=== PATIENT | female | born 1990 | race Caucasian/White ===

== ENCOUNTER 2022-01-26 05:33 | Inpatient (IN) | payer OTHER, SELFPAY ==
[2022-01-26] VITALS (74 sets, daily range): BP systolic 86–121; BP diastolic 49–85; PULSE 74–112; RESP 18; TEMP 35.8–37.4; O2SAT 93–100; BMI 33.5
--- OUTSIDE RECORDS SUMMARY | 2022-01-26 05:38 | XMS_ITS | Encounter Summary ---
:1990 Author Care Team Providers Name Role Phone Nils Kohler MD Primary Care Provider [phone] Reason for Visit OB visit Assessment and Plan 1. Routine care Discussion Note: None recorded.Patient educational handouts: No information available. Plan of Care Reminders Provider Appointments None recorded. ? ? Lab None recorded. ? ? Referral None recorded. ? ? Procedures None recorded. ? ? Surgeries None recorded. ? ? Imaging None recorded. ? ? Medications Name Start Date ? ? ? Medications Administered None recorded. Vitals Height 5 ft Results Lab Results None recorded. Allergies Code Code System Name Reaction Severity Onset NKDA ? ? ? Problems Name Status Onset Date Source ? Atypical Glandular Cells on Cervical Papanicolaou Smear Active 08/28/2021 ? Cervicovaginal Cytology: Low Grade Squamous Intraepithelial Acti ve 08/28/2021 ? Lesion Active 08/31/2021 ? Anxiety in Active ? ? Procedures Date Name Performed by ? 01/03/2017 Colposcopy Information not avai lable 06/27/2006 Termination of Information not available 06/27/1990 Hernia Repair Information not avniko laboscar Vaccine List None recorded. Social History Tobacco Smoking Status Never Smoker Do you have difficulty walking or climbing stairs? N What ty
--- OUTSIDE RECORDS SUMMARY | 2022-01-26 05:38 | XMS_ITS | Encounter Summary ---
:1990 Author Care Team Providers Name Role Phone Nils Kohler MD Primary Care Provider [phone] Reason for Visit OB visit Assessment and [...] ? Medications Administered None recorded. Vitals Height Weight BMI Blood Pressure 5 ft 171 lbs 33.4 kg/m2 106/71 mm[Hg] Results Lab Results None recorded. Allergies Code [...] not available 06/27/1990 Hernia Repair Information not avai lable Vaccine List None recorded. Social History Tobacco Smoking Status Never Smoker Do you have difficulty walking or climbing sta
--- OUTSIDE RECORDS SUMMARY | 2022-01-26 05:38 | XMS_ITS | Encounter Summary ---
:1990 Author Care Team Providers Name Role Phone Nils Kohler MD Primary Care Provider [phone] Reason for Visit OB visit Assessment and [...] Height Weight BMI Blood Pressure 5 ft 173 lbs 33.8 kg/m2 118/73 mm[Hg] Results Lab Results None recorded. Allergies [...]
--- OUTSIDE RECORDS SUMMARY | 2022-01-26 05:38 | XMS_ITS | Encounter Summary ---
:1990 Author Care Team Providers Name Role Phone Nils Kohler MD Primary Care Provider [phone] Reason for Visit OB visit OB [id number] EDC 01/31/2022 LMP 04/26/2021 Assessment and Plan Assessment Note Patient is __34_weeks . Discuss ed plan. 1. Routine care Discussion Note: None recorded.Patient [...] Height Weight BMI Blood Pressure 5 ft 168 lbs 32.8 kg/m2 92/51 mm[Hg] Results Lab Results None recorded. Allergies [...] Performed by ? 01/03/2017 Colposcopy Information not avniko cruz 06/27/2006 Termination of Information not available 06/27/1990 Mony
--- OUTSIDE RECORDS SUMMARY | 2022-01-26 05:38 | XMS_ITS | Encounter Summary ---
:1990 Author Care Team Providers Name Role Phone Nils Kohler MD Primary Care Provider [phone] Reason for Visit OB visit Assessment and Plan Assessment Note Patient is ___weeks . Discussed plan. 1. Routine care Discussion Note: None [...] Height Weight BMI Blood Pressure 5 ft 166 lbs 32.4 kg/m2 112/71 mm[Hg] Results Lab Results None recorded. Allergies [...] Information not avai lable Vaccine List None recor
--- OUTSIDE RECORDS SUMMARY | 2022-01-26 05:38 | XMS_ITS ---
:1990 Author Care Team Providers Name Role Phone RITU MCGUIRE MD Primary Care Provider [phone] Allergies Code Code System Name Reaction Severity Status Onset NKDA ? Medications Name Status Start Date Stop Date ? ? citalopram 20 mg tablet Completed 07/19/2018 07/21/19 22 TAKE 1 TABLET BY ORAL ROUTE EVERY DAY Loestrin / (21) 1 mg-20 mcg tablet Completed 06/23/2018 07/20/2021 take 1 tablet by oral route every day Ortho-Novum (28) 0.5 mg/0.75 mg/1 mg-35 mcg tablet Complet ed 04/18/2017 11/24/2017 TAKE 1 TABLET BY ORAL ROUTE EVERY DAY F OR 21 DAYS, FOLLOWED BY 7 DAYS OFF FOR A 28-DAY PACKET, TAKE ONE TABLET DAILY (NO DAYS OFF). Active ? Not available Vitamin D2 1,250 mcg (50,000 unit) capsule Completed 09/1511/24/2017 take 1 capsule by oral route every week [employer]-PNV-DHA 28 mg iron-1 mg-200 mg capsule Completed 201702/05/2019 take 1 capsule by oral route every day Problems Name Status Onset Date Source ? Infection Screening Unknown 08/29/2015 History Screening for Malignant Neoplasm of Cervix Unknown 08/28 History Syphilis Test Finding Unknown 08/29/2015 History , Childbirth and Puerperium Finding Unknown 01/2016 History Gestation Period, 25 Weeks Unknown 11/28/[address] Concept Unknown 11/28/2015 History Gestation Period, 34 Weeks Unknown 02/03/2016 Histo ry Gestation Period, 36 Weeks Unknown 02/17/2016 Histo ry Gestation Period, 39 Weeks Unknown 03/11/2016 Histo ry Laceration of Female Perineum Unknown 03/11/[address] Concept Unknown 10/21/[address] Concept Unknown 10/21/2016 History Educatio
--- OUTSIDE RECORDS SUMMARY | 2022-01-26 05:38 | XMS_ITS | Encounter Summary ---
:1990 Author Care Team Providers Name Role Phone Nils Kohler MD Primary Care Provider [phone] Reason for Visit OB visit Assessment and [...] Height Weight BMI Blood Pressure 5 ft 156 lbs 30.5 kg/m2 119/77 mm[Hg] Results Lab Results None recorded. Allergies [...]
--- OUTSIDE RECORDS SUMMARY | 2022-01-26 05:38 | XMS_ITS | Encounter Summary ---
:1990 Author Care Team Providers Name Role Phone Nils Kohler MD Primary Care Provider [phone] Reason for Visit OB visit Assessment and [...] Pressure 5 ft 173 lbs 33.8 kg/m2 101/66 mm[Hg] Results Lab Results None recorded. Allergies [...]
[2022-01-26] MEDS: LACTATED RINGERS 1,000 ML 125 ML IV CONT ×2 (07:04→09:33)
[2022-01-26] MEDS: OXYTOCIN 30 UNITS/NS 500 ML 30 UNITS/500 ML BAG IV CONT (07:04)
[2022-01-26 07:17] LABS: Basophils Percent Auto 0.2 % (0.2-1.2); Eosinophils Percent Auto 0.2 % (0-4.4); Hematocrit 32.5 % (37.0-47.0); Hemoglobin 10.6 g/dL (12.0-15.0); Immature Granulocyte Absolute 0.05 K/mm3 (0.00-0.031); Immature Granulocyte Percent A 0.9 % (0-0.5); Lymphocytes Absolute Auto 0.35 K/mm3 (0.9-3.2); Mean Corpuscular HGB Conc 32.6 g/dl (32-36); Mean Corpuscular Hemoglobin 29.6 pg (26-34); Mean Corpuscular Volume 90.8 fl (80-100); Monocytes Absolute Auto 0.6 K/mm3 (0.1-0.6); Monocytes Percent Auto 10.4 % (2.6-8.5); Neutrophils Absolute Auto 4.8 K/mm3 (1.3-6.7); Neutrophils Percent Auto 82.3 % (45.5-73.1); Platelet Count Result 137 k/mm3 (150-375); Red Blood Count 3.58 M/mm3 (4.2-5.4); Red Cell Distribution Width 13.5 % (11.5-14.5); White Blood Count 5.9 K/mm3 (4.5-10.0)
--- NOTE | 2022-01-26 07:51 | PM.IMHP ---
H&P: HPI History of Present Illness Date/Time: 01/26/22 07:51 Chief Complaint: induction of labor Narrative: Catrachita is a 31yo at 39.2 IOL, elective. GBS neg. complicated by EIF present, normal NIPT, and VÍCTOR pap at beginning of . Review of Systems Review of Systems: All systems reviewed & are unremarkable except as noted in HPI and below [facility] Family History Family History (Updated 12/31/21 @ 14:46 by Vidya Prieto RN) Other Unknown family medical history Social History Social History Substance use: never Spiritual care concerns: No Meds Home Medications and Allergies Home Medications Medication Instructions Recorded Confirmed Type prenat.vits,vincent,qvp-gsot-hxcbv 1 tablet PO DAILY 12/31/21 12/31/21 History Allergies Allergy/AdvReac Type Severity Reaction Status Date / Time No Known Allergies Allergy Verified 12/31/21 14:44 Vital Signs Vital Signs - 24 hr 01/26/22 05:59 01/26/22 06:01 01/26/22 06:16 Temperature Pulse Rate 96 99 111 H Blood Pressure 106/65 104/68 106/71 Oxygen Delivery 01/26/22 07:07 01/26/22 07:00 01/26/22 07:31 Temperature 97.6 F Pulse Rate 105 H 96 Blood Pressure 110/62 107/60 Oxygen Delivery 01/26/22 06:58 Temperature Pulse Rate Blood Pressure Oxygen Delivery Room Air Exam Const: General: no acute distress Resp: Effort & Inspection: normal respiratory effort Auscultation: clear to auscultation bilaterally Cardio: Rate: regular rate Rhythm: regular rhythm GI: GI Palp: Yes Soft to palpation Extrem: General: normal to inspection H&P: Results Labs Labs: Short CBC 01/26/22 Range/Units 06:12 WBC 5.9 (4.5-10.0) K/mm3 Hgb 10.6 L (12.0-15.0) g/dL Hct 32.5 L (37.0-47.0) % Plt Count 137 L (150-375) k/mm3 Assessment and Plan Additional Plan Here for induction of labor-pitocin GBSneg FHT category 1 AROM clear /50/-3
[2022-01-26] MEDS: SODIUM CHLORIDE 0.9% IV 300 ML 600 ML I-UTERINE ×2 (11:00→12:59)
--- NOTE | 2022-01-26 12:48 | PM.OBPRVD ---
OB - Delivery Note Procedure Delivery date: 01/26/22 Procedure: Induction method: AROM and Per Pitocin Protocol Delivery monitor: External FHT and Internal Uterine Route of delivery: Laceration Description: Perineal - 2nd Degree Delivery repair: vicryl Specimen: No Quantitative Blood Loss (ml): 175 Anesthesia type: Epidural Disposition: Floor Narrative: With adequate expulsive efforts by the mother, the baby's head was delivered OA. The baby's anterior shoulder was delivered under the pubic symphysis without difficulty. The posterior shoulder and the rest of the baby delivered without difficulty. The infant was placed on the mothers chest and suctioned and stimulated. The cord was clamped and cut after 30 seconds. Mother and baby both stable. Baby Date of : 01/26/22 Time of : 12:16 Weeks of gestation at delivery: 39 gender: Male Weight (pounds): 7 Weight (ounces): 1 presentation: vertex Placenta delivery description: Spontaneous Cord Vessel Description: 3 Vessels and Delayed Cord Clamping score one minute: 9 score five minutes: 9
[2022-01-26] MEDS: OXYTOCIN 30 UNITS/NS 500 ML 30 UNITS/500 ML BAG 125 UNITS IV CONT (12:59)
--- NOTE | 2022-01-26 15:50 | PC.NURSE ---
PT arrived on unit via wheelchair accompanied by fob and infant and taken to room 279. PT introductions made and plan of care discussed per post , pain management, breast feeding, daily care activities. PT received such instructions per one to one discussion, mom baby care guide and demonstrations this shift. PT and fob both recipients of such instructions and no barriers to learning identified at this time. PT verbalized understanding of such care.
[2022-01-26] MEDS: LANOLIN (LANSINOH) 7.5 GM CREAM 1 APPLIC TOPICAL (17:33)
[2022-01-26] MEDS: IBUPROFEN 600 MG TABLET PO (17:33)
[2022-01-26] MEDS: DOCUSATE SODIUM 100 MG CAPSULE PO (17:33)
[2022-01-27 00:50] VITALS: BP 90/53; PULSE 82; RESP 16; TEMP 35.9
[2022-01-27] MEDS: IBUPROFEN 600 MG TABLET PO ×2 (04:55→11:32)
[2022-01-27 05:00] VITALS: BP 99/69; PULSE 64; RESP 18; TEMP 36.8
[2022-01-27 06:00] LABS: Hematocrit 34.3 % (37.0-47.0); Hemoglobin 11.1 g/dL (12.0-15.0)
--- NOTE | 2022-01-27 07:20 | P.PNOB_ITS ---
OB - PN: Subj Subjective Date/time seen: 01/27/22 07:20 Patient comments: no complaints and pain well controlled baby status: doing well [place] feeding status: exclusively breast feeding Narrative: would like DC home today. OB - PN: Obj Data Labs CBC & Chem 7: 01/27/22 04:59 Labs: Laboratory Results - last 24 hr 01/26/22 01/26/22 01/27/22 06:12 06:12 04:59 WBC 5.9 RBC 3.58 L Hgb 10.6 L 11.1 L Hct 32.5 L 34.3 L MCV 90.8 MCH 29.6 MCHC 32.6 RDW 13.5 Plt Count 137 L MPV 11.0 H Immature Gran % (Auto) 0.9 H Neut % (Auto) 82.3 H Lymph % (Auto) 6.0 L [place] % (Auto) 10.4 H Eos % (Auto) 0.2 Baso % (Auto) 0.2 Lymph # (Auto) 0.35 L [place] # (Auto) 0.6 Eos # (Auto) 0.0 Baso # (Auto) 0.0 Abs Immat Gran (auto) 0.05 H Absolute Neuts (auto) 4.8 Absolute Nucleated RBC 0.0 Nucleated RBC % 0.0 Blood Type A Positive Antibody Screen Negative OB - PN A/P Plan day: 1 Plan: routine care and discharge home Time Spent With Patient Time: Total time spent is greater than 50% in coordination of care (as documented) at patient's floor/unit and/or counseling patient: Time with patient: less than 15 minutes Exam Narrative: NAD abdomen soft, nontender, fundus firm below the umbilicus Extremities nontender, 1+ edema
--- NOTE | 2022-01-27 07:23 | PM.OBDSVD ---
DS: Admitting Diagnosis Discharge Date 01/27/22 Admitting Diagnosis term IUP DS: Discharge Diagnosis Discharge Diagnosis (1) , delivered: Code(s): O80 - Encounter for full-term uncomplicated delivery Status: Acute OB - DS: Summary Hospital Course Hospital Course: Catrachita was admitted for elective induction of labor. She had an uncomplicated delivery and course and was discharged home on PPD 1. OB Procedures : Ultrasound OB Procedures Intrapartum: Spontaneous Vag Delivery OB Procedures: : None Peripartum Data Infant Delivery Method: Natural Vaginal complications: none Status at Discharge Functional status at discharge: independent ambulation Time Spent with Patient Time attestation: Total time spent providing and/or coordinating discharge services: Exam Narrative: NAD abdomen soft, appropriately tender Ext non tender, 1+ edema DS: Data Data Completed and Pending Labs on day of discharge: Labs from last 24 hours 01/27/22 01/26/22 01/26/22 04:59 06:12 06:12 WBC 5.9 RBC 3.58 L Hgb 11.1 L 10.6 L Hct 34.3 L 32.5 L MCV 90.8 MCH 29.6 MCHC 32.6 RDW 13.5 Plt Count 137 L MPV 11.0 H Immature Gran % (Auto) 0.9 H Neut % (Auto) 82.3 H Lymph % (Auto) 6.0 L [place] % (Auto) 10.4 H Eos % (Auto) 0.2 Baso % (Auto) 0.2 Lymph # (Auto) 0.35 L [place] # (Auto) 0.6 Eos # (Auto) 0.0 Baso # (Auto) 0.0 Abs Immat Gran (auto) 0.05 H Absolute Neuts (auto) 4.8 Absolute Nucleated RBC 0.0 Nucleated RBC % 0.0 Blood Type A Positive Antibody Screen Negative Discharge Plan Discharge Attending physician on discharge: Juliana Santiago Discharging Clinician: Juliana Santiago Anticipated Discharge Date/Time: 01/27/22 12:00 Patient Disposition: Home, Self-Care Activity: pelvic rest Diet: regular Patient Instructions: Antibiotic Form Stand Alone Forms: General Discharge Information Follow-up/Referrals: Juliana Santiago MD [Physician] - Discharge Medications: Continued #2 Tablet 1 tablet PO DAILY Date of admission: 01/26/22 05:33 Primary Care Provider: Edita,Nils Admitting Provider: Juliana Santiago. Attending physician on admission: Juliana Santiago. Condition: Stable
[2022-01-27 08:00] VITALS: BP 102/66; PULSE 72; RESP 18; TEMP 36.7; O2SAT 100
[2022-01-27] MEDS: MULTIVIT/MIN/PREN/FOL AC/IRON TABLET 1 TAB PO (11:31)
[2022-01-27] MEDS: DOCUSATE SODIUM 100 MG CAPSULE PO (11:31)
--- NOTE | 2022-01-27 12:11 | PC.NURSE ---
Patient was given the opportunity to view the discharge video Mother & Baby Care, The First Two Weeks and to ask questions. Patient declined viewing the video and has been given the mother/baby guide for home reference.
--- NOTE | 2022-01-27 12:27 | PC.NURSE ---
[id number] Introductions were made, then consulted with patient to assess needs related to . Mother led the conversation with her?plans to feed?her infant and the?experience so far. Resources provided for inpatient and outpatient services using a resource guide and mom/baby guide. Mother voiced understanding of information and will call if there is a request for assistance. Mother inquired with questions and requested assistance. Mother works well with her infant with encouragement. Reviewed working with , breast, nipples and how to protect the nipples with an optimal deep latch, good positioning, and good hand washing. Encouraged understanding the benefits of skin to skin, responding to feeding cues, frequencies of feeding 8-12 times in 24 hours (approximately 2-3 hours), duration of feedings, milk production, intake/output feeding sheet and signs of adequate intake encouraging swallowing at the breast. Reviewed positioning and alignment, supporting breast, off-centered (asymmetrical latch) and leading with the chin with big open wide gape. latched optimally to the left breast in cross cradle position. Education given to mother of how to visualize suck/swallow ratios and drinking at the breast. was able to maintain latch without discomfort to mother. Nipple care reviewed with optimal latch and good positioning and to have clean hands when touching the nipple/breast as needed. Mother voiced understanding of the education shared, calling for assistance if the does not latch or if there is discomfort with . Reported to the primary RN.
[2022-01-27 12:50] VITALS: BP 99/66; PULSE 78; RESP 18; TEMP 36.6; O2SAT 98
--- NOTE | 2022-01-27 12:53 | PC.NURSE ---
Error on prior note: Patient viewed the discharge video Mother & Baby Care, The First Two Weeks . Patient was given the opportunity and encouraged to ask questions. Patient verbalized understanding of information shared and has been given the mother/baby guide for home reference.
--- NOTE | 2022-01-27 13:20 | WPDANLDPN2 ---
Anes-Prog Note L&D Date/Time: 01/27/22 13:20 Comfortable throughout: labor and delivery Neuraxial method: epidural Epidural/Spinal procedure site: clean & non-tender Neuro status: Neuro function grossly intact. Cardiovascular status: normal Respiratory status: normal Airway patency: baseline Mental status: baseline Post-Op hydration status: normal Vital Signs: Last Vital Signs Temp 97.8 F 01/27/22 12:50 Pulse 78 01/27/22 12:50 Resp 18 01/27/22 12:50 BP 99/66 L 01/27/22 12:50 Pulse Ox 98 01/27/22 12:50 O2 Del Method Room Air 01/27/22 08:00 Pain score (VAS): 07/06 I/O: Intake & Output 01/26/22 01/27/22 01/27/22 23:59 07:59 15:59 Intake Total 740 240 Balance 740 240 Post-procedural complaints: none Patient feedback: Patient satisfied with anesthetic care.
[2022-01-27 16:23] LABS: Rapid Plasma Reagin Non-Reactive (NonReactive)
[2022-01-29 11:08] VITALS: BP 124/70; PULSE 74; RESP 20; TEMP 36.9; O2SAT 99
== END 2022-01-27 14:00 | disposition home or self-care (01) | DRG 560 ==
LOC: ANHLDR 05:36 → ANHOB2 15:53
PROVIDERS: Admitting Provider Obstetrics & Gynecology; Visit Provider Obstetrics & Gynecology
DX: O70.1 Second degree perineal laceration during delivery (principal); Z37.0 Single live birth; Z3A.39 39 weeks gestation of pregnancy; O36.8330 Maternal care for abnormalities of the fetal heart rate or rhythm, third trimester, not applicable or unspecified
CPT/HCPCS: 36415; 85014; 85018; 85025; 86592; 86850; 86900; 86901; A9270; J2590; J2795; J7030; J7120

== ENCOUNTER 2025-03-20 00:01 | Inpatient (IN) | payer OTHER, SELFPAY ==
[2025-03-20] VITALS (58 sets, daily range): BP systolic 94–208; BP diastolic 46–138; PULSE 53–188; RESP 18–20; TEMP 36.5–36.9; O2SAT 94–100
--- NOTE | 2025-03-20 00:57 | LDADM ---
This patient, Catrachita Cerna, was admitted to Labor/Delivery/Recovery 106 on 03/20/25 at 00:05. Plans for labor, pain management and were discussed with patient. Patient/family oriented to hospital policies and general routines including ID bracelet, bed and alarms, visiting hours, pain management, procedures, bathroom and other care routines, personal items, smoking policy, room service/diet and guest tray routines, security routines, and visiting hours. Patient/Family are encouraged to report perceived risks to care and to ask questions if they do not understand what they are told or what they should do. See [facility]BI[facility] for further documentation.
[2025-03-20 01:04] LABS: Hematocrit 31.2 % (37.0-47.0); Hemoglobin 10.1 g/dL (12.0-15.0); Immature Granulocyte Percent A 0.7 % (0-0.5); Lymphocytes Absolute Auto 2.06 K/mm3 (0.9-3.2); Mean Corpuscular HGB Conc 32.4 g/dl (32-36); Mean Corpuscular Hemoglobin 27.5 pg (26-34); Mean Corpuscular Volume 85.0 fl (80-100); Nucleated Red Blood Cells Absolute Auto 0.000 K/mm3 (0.0-0.012); Nucleated Red Blood Cells Perc 0.0 % (0.0-0.2); Platelet Count Result 211 k/mm3 (150-375); Red Blood Count 3.67 M/mm3 (4.2-5.4); White Blood Count 10.3 K/mm3 (4.5-10.0)
[2025-03-20 01:44] LABS: Syphilis IgG/IgM Antibody Non-Reactive (Nonreactive)
[2025-03-20] MEDS: LACTATED RINGERS 1,000 ML 125 ML IV CONT ×2 (01:46→07:59)
[2025-03-20] MEDS: OXYTOCIN 30 UNITS/NS 500 ML 30 UNITS/500 ML BAG IV CONT (01:46)
--- NOTE | 2025-03-20 06:55 | P.PNAN_ITS ---
Anes - Eval Pre Procedure Procedure: labor epidural Date/Time: 03/20/25 06:55 Surgeon: imani Preop Diagnosis: pain during labor Pre Op Diagnosis: Pre-in / IOL Patient Data Age: 35 Gender: F Height: Weight: Last Vital Signs Temp 36.8 C 03/20/25 04:00 Pulse 69 03/20/25 06:45 BP 114/59 L 03/20/25 06:45 Allergies Allergy/AdvReac Type Severity Reaction Status Date / Time No Known Allergies Allergy Verified 02/18/25 13:39 Home Medications ?Medication ?Instructions ?Recorded ?Confirmed ?Type prenat.vits,vincent,[id number]-[id number] 1 tablet PO DAILY 12/3102/18/25 History Laboratory Tests 03/20/25 00:55 WBC 10.3 H K/mm3 (4.5-10.0) RBC 3.67 L M/mm3 (4.2-5.4) Hgb 10.1 L g/dL (12.0-15.0) Hct 31.2 L % (37.0-47.0) MCV 85.0 fl (80-100) MCH 27.5 pg (26-34) MCHC 32.4 g/dl (32-36) RDW 14.1 % (11.5-14.5) Plt Count 211 D k/mm3 (150-375) MPV 10.8 H fl (7.4-10.4) Immature Gran % (Auto) 0.7 H % (0-0.5) Neut % (Auto) 72.5 % (45.5-73.1) Lymph % (Auto) 20.1 % (18.3-44.2) [place] % (Auto) 5.7 % (2.6-8.5) Eos % (Auto) 0.7 % (0-4.4) Baso % (Auto) 0.3 % (0.2-1.2) Lymph # (Auto) 2.06 K/mm3 (0.9-3.2) [place] # (Auto) 0.6 K/mm3 (0.1-0.6) Eos # (Auto) 0.1 K/mm3 (0-0.3) Baso # (Auto) 0.0 K/mm3 (0.0-0.1) Abs Immat Gran (auto) 0.07 H K/mm3 (0.00-0.031) Absolute Neuts (auto) 7.5 H K/mm3 (1.3-6.7) Absolute Nucleated RBC 0.000 K/mm3 (0.0-0.012) Nucleated RBC % 0.0 % (0.0-0.2) Syphilis IgG/IgM Ab Non-reactive (Nonreactive) Blood Type A Positive Antibody Screen Negative Patient hx anesthesia problems: none Family hx anesthesia problems: none Results Review: All pre-operative results and documents have been reviewed as part of the pre- operative evaluation. [facility] Past Medical History Medical History (Updated 03/20/25 @ 06:56 by Parul Doan CRNA) FH: migraines Advanced maternal age (AMA) in Anxiety OCD (obsessive compulsive disorder) Family History Family History Other Unknown family medical history Social History Social History Smoking status: Former smoker Tobacco type: cigarettes and e-cigarettes/vaping Second hand tobacco smoke exposure: No Substance use: never Lack of Transportation: No Lack of Food: Never True Current Housing: I Have Housing Concerned About Future Housing: No Difficulty Paying Gas/Electric Bills: No Difficulty Paying for Meds: No Currently Unemployed: No Education: High School Diploma/GED Difficulty w/ Childcare or Family Care: No Spiritual care concerns: No Exam Day of Procedure 03/20/25 06:55
[2025-03-20] MEDS: OXYTOCIN 30 UNITS/NS 500 ML 30 UNITS/500 ML BAG 125 UNITS IV CONT (10:09)
--- NOTE | 2025-03-20 10:57 | WPDOBADMIT ---
Obstetrics - Admit Note Admission Note: record reviewed. No pertinent additions to the history and/or any subsequent changes in the physical findings that are not consistent with the expected course of the were found. Admitted for EIL, pitocin per protocol. AROM at 0730 of clear fluid Additions to the history and/or subsequent changes in the physical findings follow. None.
--- NOTE | 2025-03-20 10:58 | P.PCNOB_ITS ---
OB - Vaginal Delivery Note Procedure Delivery date: 03/20/25 Events: Elective Induction of Labor Induction method: AROM and Per Pitocin Protocol Delivery monitor: External FHT and External Uterine Route of delivery: Episiotomy description: None Laceration Description: Perineal - 1st Degree (hemostatic) Specimen: No Quantitative Blood Loss (ml): 100 Anesthesia type: Epidural Disposition: Floor Complications: No immediate complications Narrative: See H&P and notes for details on patient's admission and labor. She progressed to complete cervical dilation and at the appropriate time began pushing. With adequate expulsive efforts by the mother, the baby's head was delivered without difficulty. Nuchal cord was present x1 and was easily reduced. The baby's left shoulder was anterior and did not deliver easily. Shoulder dystocia was identified. The patient was placed in Ray[place] position and the dystocia was relieved. The posterior shoulder and the rest of the baby delivered without difficulty. The umbilical cord was doubly clamped and cut after 20 seconds of delayed cord clamping. Care of the was then assumed by the nursing staff. [place] Baby Date of : 03/20/25 Gestational Age by Date: 40 gender: Male presentation: vertex position: Left Occiput Anterior Placenta delivery description: Expressed Cord Vessel Description: 3 Vessels, Nuchal Cord and Reduced
--- NOTE | 2025-03-20 12:06 | OBPPTRN ---
Patient transferred to post room #280 via wheelchair. Oriented to unit, room, information board, rooming in, admission packet and security measures. Patient verbalizes understanding.
--- NOTE | 2025-03-20 12:35 | PC.NURSE ---
On 03/20/25, the student, Juliana Bojorquez, provided care and completed [facility] documentation on this patient. I have reviewed the student's documentation and agree with the findings.
[2025-03-20] MEDS: IBUPROFEN 600 MG TABLET PO ×2 (15:45→23:45)
[2025-03-21 00:39] VITALS: BP 106/62; PULSE 80; RESP 20; TEMP 36.4; O2SAT 96
[2025-03-21 04:50] LABS: Hematocrit 30.7 % (37.0-47.0); Hemoglobin 9.7 g/dL (12.0-15.0)
[2025-03-21] MEDS: DOCUSATE SODIUM 100 MG CAPSULE PO ×2 (08:14→16:19)
[2025-03-21] MEDS: IBUPROFEN 600 MG TABLET PO ×3 (08:14→20:07)
[2025-03-21] MEDS: MULTIVIT/MIN/PREN/FOL AC/IRON TABLET 1 TAB PO (08:14)
[2025-03-21 08:20] VITALS: BP 104/66; PULSE 68; RESP 18; TEMP 36.9; O2SAT 97
--- NOTE | 2025-03-21 12:57 | P.PNOB_ITS ---
OB - PN: Subj Subjective Date/time seen: 03/21/25 12:57 Patient comments: no complaints, pain well controlled, incisional pain, tolerating diet and flatus present OB - PN: Obj Data Labs 03/21/25 04:32 Labs: Laboratory Results - last 24 hr 03/21/25 04:32 Hgb 9.7 L Hct 30.7 L OB - PN A/P Plan day: 1 Plan: routine care Comments: No problems, routine care Time Spent With Patient Time: Total time spent is greater than 50% in coordination of care (as documented) at patient's floor/unit and/or counseling patient: Exam 2 Const: General: comfortable, no acute distress and alert Resp: Effort & Inspection: normal respiratory effort Auscultation: no crackles, no rales and no rhonchi Cardio: Rate: regular rate Heart sounds: no click, no murmurs and no rubs GI: Inspection: non-distended GI Palp: No Tenderness to palpation present (GI) Auscultation: normal bowel sounds Other: Incision - CDI Extrem: General: normal to inspection, no pedal edema and no calf tenderness
--- NOTE | 2025-03-21 17:00 | WPDANLDPN2 ---
Anes-Prog Note L&D Date/Time: 03/21/25 17:00 Neuro status: Neuro function grossly intact. Cardiovascular status: normal Respiratory status: normal Airway patency: baseline Mental status: baseline Post-Op hydration status: normal Vital Signs: Last Vital Signs Temp 36.9 C 03/21/25 08:20 Pulse 68 03/21/25 08:20 Resp 18 03/21/25 08:20 BP 104/66 03/21/25 08:20 Pulse Ox 97 03/21/25 08:20 O2 Del Method Room Air 03/21/25 08:15 Pain score (VAS): 0 Post-procedural complaints: none Patient feedback: Patient satisfied with anesthetic care.
[2025-03-21 19:55] VITALS: BP 108/50; PULSE 84; RESP 16; TEMP 36.8; O2SAT 98
[2025-03-22] MEDS: IBUPROFEN 600 MG TABLET PO (03:38)
--- NOTE | 2025-03-22 07:58 | P.PNOB_ITS ---
OB - PN: Subj Subjective Date/time seen: 03/22/25 07:58 Interval history: pp day 1 doing well desires d/c home OB - PN: Obj Data Labs 03/21/25 04:32 OB - PN A/P Plan day: 2 Plan: routine care and discharge home Time Spent With Patient Time: Total time spent is greater than 50% in coordination of care (as documented) at patient's floor/unit and/or counseling patient: Review of Systems 2 Review of Systems: All systems reviewed & are unremarkable except as noted in HPI and below Exam 2 Const: General: cooperative, healthy appearing and comfortable Chest: Chest palpation & inspection: normal inspection of the chest Resp: Effort & Inspection: normal respiratory effort Cardio: Rate: regular rate GI: Inspection: normal to inspection Back/Spine/Pelvis: Back: no CVA tenderness
--- NOTE | 2025-03-22 08:00 | PM.OBDSVD ---
DS: Admitting Diagnosis Discharge Date 03/22/25 Admitting Diagnosis IOL DS: Discharge Diagnosis Discharge Diagnosis (1) Vaginal delivery: Code(s): O80 - Encounter for full-term uncomplicated delivery Status: Acute OB - DS: Summary OB Procedures : None OB Procedures Intrapartum: Spontaneous Vag Delivery OB Procedures: : None Peripartum Data Laceration Description: Perineal - 1st Degree (hemostatic) Episiotomy description: None Time Spent with Patient Time attestation: Total time spent providing and/or coordinating discharge services: Discharge Plan Discharge Attending physician on discharge: Timi Gonzalez Discharging Clinician: Chichi Camilo Patient Disposition: Home Activity: pelvic rest Diet: regular Patient Instructions: Antibiotic Form, How to Stop Smoking (ED) Patient Language: Prydeinig Stand Alone Forms: General Discharge Information Follow-up/Referrals: Abner Steele MD [Physician, STITCH BONDING MACHINE TENDER HELPER] - 4 Weeks Referral Note: abelardo-4 weeks Chichi Camilo, KYLEM [Certified Nurse Insurance Agency Sales Manager, STITCH BONDING MACHINE TENDER HELPER] Discharge Medications: Continued prenat.vits,vincent,piu-yday-wuufu Tablet 1 tablet PO DAILY Date of admission: 03/20/25 00:01 Primary Care Provider: PHYSICIAN,FISHERY BIOLOGIST Admitting Provider: Timi Gonzalez Attending physician on admission: Timi Gonzalez Condition: Stable
[2025-03-22] MEDS: DOCUSATE SODIUM 100 MG CAPSULE PO (08:13)
[2025-03-22] MEDS: ACETAMINOPHEN 325 MG TABLET 650 MG PO (08:13)
[2025-03-22] MEDS: MULTIVIT/MIN/PREN/FOL AC/IRON TABLET 1 TAB PO (08:13)
[2025-03-22 08:30] VITALS: BP 121/72; PULSE 87; RESP 16; TEMP 36.6; O2SAT 98
--- NOTE | 2025-03-22 11:35 | PC.NURSE ---
Consulted with mother concerning needs and she shared her ability to independently latch infant optimally without pain. Mother is feeding appropriately for growth of and understands stimulating to eat if needed. Infant has had appropriate feedings in the last 24 hours meets the outcomes for weight, output, blood sugar and jaundice at this time. Reinforced understanding of milk production, transition of milk, signs of adequate intake, transition of stool, prevention/relief of engorgement, plugged ducts, mastitis, responsive watching for feeding cues, the different methods of stimulating to breastfeed 1-3 hours after the start of the last feeding, community resources, and when to call a provider using the resource of the feeding sheet along with the mom and baby guide. Mother voiced understanding of the information shared, is confident to continue effectively her infant at home, when to call for assistance, denies any additional assistance or education at this time. Reported to the Primary RN.
[2025-03-23 11:13] VITALS: BP 111/74; PULSE 62; RESP 18; TEMP 37.3; O2SAT 97
== END 2025-03-22 13:10 | disposition home or self-care (01) | DRG 560 ==
LOC: ANHLDR 02:33 → ANHOB2 12:11
PROVIDERS: Obstetrics & Gynecology; Admitting Provider Obstetrics & Gynecology; Visit Provider Obstetrics & Gynecology
DX: O62.3 Precipitate labor (principal); Z37.0 Single live birth; Z3A.40 40 weeks gestation of pregnancy; O69.81X0 Labor and delivery complicated by cord around neck, without compression, not applicable or unspecified; O66.0 Obstructed labor due to shoulder dystocia; O70.0 First degree perineal laceration during delivery
CPT/HCPCS: 36415; 85014; 85018; 85025; 86593; 86850; 86900; 86901; A9270; J2590; J2795; J7120

== ENCOUNTER 2025-05-27 00:27 | Day surgery (SDC) | payer OTHER, SELFPAY ==
[2025-05-21 17:04] VITALS: BMI 31.3
--- NOTE | 2025-05-22 09:37 | PC.NURSE ---
[facility] has started construction of its new state of the art ER which will open Spring 2026. With this, we anticipate parking may be a challenge for some our surgical patients and families. Parking spaces are limited but are available for all Surgical, obstetrics, and ER patients sharing this lot. If you arrive and find you are having a hard time finding a parking space, please note that we understand the challenges, please drive around the hospital and park near Hospital Entrance 1. When you enter this entrance, you can ask a volunteer to direct or take you back to the surgical waiting area to check in. We appreciate everyone?s understanding of these expected challenges while we build for your future. Report to the Outpatient Waiting Room, entrance under the green pavilion located off [address], at time _1100 on date ___05/28/2025____. Planned Procedure Time: ____1300____.? Time changes happen often and if your time is changed the preop area will call you the afternoon before. - You and your visitor will be asked to self-screen and do not enter if you have any COVID symptoms. Please call surgeon if you need to reschedule. - A mask is optional within the hospital at this time. Patients may have clear liquids (water, carbonated beverages, clear teas, apple juice) until 3 hours prior to surgery with a maximum of 20 ounces. - No food from midnight until time of surgery and no smoking, or chewing tobacco (or any form of nicotine). No chewing gum, candy or mints. - Infants may have breast milk until 4 hours before surgery, formula 6 hours prior to surgery. - Children will be allowed to drink immediately following surgery.? If applicable, please bring a bottle or sippy cup to assist with drinking. Juice, water, soda, and popsicles are readily available.? For infants on formula, please bring formula the day of surgery.? Pacifiers are allowed. Take only the following medications with a SIP of water on the morning of surgery: ____none DO NOT STOP ANY OF YOUR OTHER PRESCRIPTION MEDICATIONS PRIOR TO SURGERY EXCEPT THE FOLLOWING Hold all vitamins and supplements for 3 days per anesthesiologist. Medications to discontinue per physician vitamins Date to take last dose 05/23/2025 Please no make-up, nail mozambican, hairspray, perfume, deodorant, or body powder the day of surgery.? No jewelry (including any body piercings) or valuables the day of surgery, leave them at home.? Please take a shower or bath the night before, or the morning of, surgery with an antibacterial soap.? Wear comfortable, loose fitting clothing.? Children are encouraged to wear pajamas. - Jewelry must be removed prior to entering the operating room.? Rings and piercings that are not removed may be cut off. - The hospital will not accept responsibility for valuables.? - Please leave all valuables, including medications, at home the day of surgery. If you are going home after surgery, a licensed minibus driver must drive you home.? - NO public transportation without another adult if you receive anesthesia. - We recommend that an adult stay with you for 24 hours following discharge. - We also recommend that you do not drive, make important decision, drink alcoholic beverages, or take any drugs that were not prescribed by your health care provider for at least 24 hours after your discharge time. For Pediatric surgeries, we recommend two adults accompany the child home. Follow any additional instructions given to you from your surgeon. Telephone instructions given to Eran Cerna and asked if any additional questions and then verbalized understanding. Patient advised to call surgeon office or pre surgery nurse liaison [phone] if any additional questions.
[2025-05-27] VITALS (11 sets, daily range): BP systolic 101–138; BP diastolic 61–85; PULSE 48–64; RESP 12–16; TEMP 36.2–36.5; O2SAT 94–100
--- OUTSIDE RECORDS SUMMARY | 2025-05-27 00:30 | XMS_ITS | Continuity of Care Document ---
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 Plan of Treatment Reminders Order Date Submit Date Provider Last Modified By Organization Details Last Modified Time Details Appointments SURG Salpingec nikolai 2024 01:00P Sharon MARTINEZ MD Not available Not available Not available SURG POST OP 2024 04:00P Sharon MARTINEZ MD Not available Not available Not available Lab None recorded. Referral None recorded. Procedures None recorded. Surgeries salpingec nikolai, laparosco pic (SURG) 2024 025 [facility]0 [facility], [facility] [address], [address], 05/06/2025 16:53:37 Imaging None recorded. Medication Orders None recorded. Patient TargetsNo targets recorded. Patient InstructionsNo instructions recorded. Reason for Referral None Reported. Results Created Date Observation Date Name Description Value Unit Range Abnormal Flag Note LastModifiedBy Organization Detail LastModifiedTime 09/25/1909/24/2024 [UNIT Y] ANEUP LOIDY NIPT fraction 16.7% normal Not Available Avinash natarajan [address], [place], [address], 09/24/2024 14:19:42 09/25/19 25 09/24/2024 [UNIT Y] ANEUP LOIDY NIPT 22Q11.2 microdeletio n LOW RISK <1 in 10,000 normal Not Available [facility] [address], [place], [address], 09/24/2024 14:19:42 09/25/19 25 09/24/2024 [UNIT Y] ANEUP LOIDY NIPT sex chromosome aneuploidy NOT DETECT ED normal Not Available [facility] [address], [place], [address], 09/24/2024 14:19:42 09/25/19 25 09/24/2024 [UNIT Y] ANEUP LOIDY NIPT monosomy X LOW RISK <1 in 10,000 normal Not Available [facility] [address], [place], [address], 09/24/2024 14:19:42 09/25/19 25 09/24/2024 [UNIT Y] ANEUP LOIDY NIPT trisomy 13 LOW RISK <1 in 10,000 normal Not Available [facility] [address], [place], [address], 09/24/2024 14:19:42 09/25/19 25 09/24/2024 [UNIT Y] ANEUP LOIDY NIPT trisomy 18 LOW RISK <1 in 10,000 normal Not Available [facility] [address], [place], [address], 09/24/2024 14:19:42 09/25/19 25 09/24/2024 [UNIT Y] ANEUP LOIDY NIPT trisomy 21 LOW RISK <1 in 10,000 normal Not Available [facility] [address], [place], [address], 09/24/2024 14:19:42 09/25/19 25 09/24/2024 [UNIT Y] ANEUP LOIDY NIPT sex MALE normal Not Available [facility] [address], [place], [address], 09/24/2024 14:19:42 09/25/19 25 09/24/2024 [UNIT Y] ANEUP LOIDY NIPT gestation SINGLE TON normal Not Available [facility] [address], [place], [address], 09/24/2024 14:19:42 09/25/19 25 09/24/2024 [UNIT Y] ANEUP LOIDY NIPT for detailed report, see pdf See PDF normal Not Available [facility] [address], [place], [address], 09/24/2024 14:19:42 09/27/19 25 09/26/2024 [UNIT Y] JANET Danielle sickle cell disease/beta -thalassemia /hemoglobino pathies carrier screen NEGATI VE normal Not Available [facility] [address], [place], [address], 09/26/2024 23:58:29 09/27/19 25 09/26/2024 [UNIT Y] JANET Danielle alpha-thalas semia carrier screen NEGATI VE normal Not Available [facility] [address], [place], [address], 09/26/2024 23:58:29 09/27/19 25 09/26/2024 [UNIT Y] JANET Danielle cystic fibrosis carrier screen NEGATI VE normal Not Available [facility] [address], [place], [address], 09/26/2024 23:58:29 09/27/19 25 09/26/2024 [UNIT Y] JANET Danielle spinal muscular atrophy carrier screen NEGATI VE 2 SMN1 copies , SNP not presen t normal Not Available [facility] [address], [place], [address], 09/26/2024 23:58:29 09/27/19 25 09/26/2024 [UNIT Y] JANET Danielle for detailed report, see pdf See PDF normal Not Available [facility] [address], [place], [address], 09/26/2024 23:58:29 09/19/1909/18/2024 CBC W/DIF F WBC 7.0 10'3/ uL 3.5-10 .5 Not Available [facility] (Lab) [address], [place], [address], 09/19/2024 19:12:48 09/19/19 25 09/18/2024 CBC W/DIF F RBC 4.17 10'6/ uL (based on docume nted legal sex) 3.80-5 .20 Not Available [facility] (Lab) [address], [place], [address], 09/19/2024 19:12:48 09/19/19 25 09/18/2024 CBC W/DIF F HGB 13.4 g/dL (based on docume nted legal sex) 11.6-1 5.4 Not Available [facility] (Lab) [address] , [place], [address], 09/19/2024 19:12:48 09/19/1909/18/2024 CBC W/DIF F HCT 38.5 % (based on docume nted legal sex) 34.0-4 5.0 Not Available [facility] (Lab) [address], [place], [address], 09/19/2024 19:12:48 09/19/19 25 09/18/2024 CBC W/DIF F MCV 92.3 fL 80.0-9 9.0 Not Available [facility] (Lab) [address] [facility], [place], [address], 09/19/2024 19:12:48 09/19/19 25 09/18/2024 CBC W/DIF F MCH 32.1 pg 27.0-3 4.0 Not Available [facility] (Lab) [address], [place], [address], 09/19/2024 19:12:48 09/19/19 25 09/18/2024 CBC W/DIF F MCHC 34.8 g/dL 32.0-3 5.5 Not Available [facility] (Lab) [address], [place], [address], 09/19/2024 19:12:48 09/19/19 25 09/18/2024 CBC W/DIF F RDW 13.0 % 11.0-1 5.0 Not Available [facility] (Lab) [address], [place], [address], 09/19/2024 19:12:48 09/19/19 25 09/18/2024 CBC W/DIF F plt 243 10'3/ uL 150-40 0 Not Available [facility] (Lab) [address], [place], [address], 09/19/2024 19:12:48 09/19/19 25 09/18/2024 CBC W/DIF F MPV 10.2 fL 8.8-12 .1 Not Available [facility] (Lab) [address], [place], [address], 09/19/2024 19:12:48 09/19/19 25 09/18/2024 CBC W/DIF F neutrophils 64.4 % 34.0-7 3.0 Not Available [facility] (Lab) [address], [place], [address], 09/19/2024 19:12:48 09/19/19 25 09/18/2024 CBC W/DIF F lymphocytes 26.9 % 15.0-5 0.0 Not Available [facility] (Lab) [address], [place], [address], 09/19/2024 19:12:48 09/19/19 25 09/18/2024 CBC W/DIF F monocytes 6.7 % 1.0-15 .0 Not Available [facility] (Lab) [address], [place], [address], 09/19/2024 19:12:48 09/19/19 25 09/18/2024 CBC W/DIF F eosinophils 1.1 % 0.0-8. 0 Not Available [facility] (Lab) [address] [facility], [place], [address], 09/19/2024 19:12:48 09/19/19 25 09/18/2024 CBC W/DIF F basophils 0.6 % 0.0-2. 0 Not Available [facility] (Lab) [address] [facility], [place], [address], 09/19/2024 19:12:48 09/19/19 25 09/18/2024 CBC W/DIF F immature granulocytes 0.3 % no define d refere nce range Immat ure Granu locyt es (IG) repre sents autom ated enume ratio n of Metam yeloc ytes, Myelo cytes and Promy elocy danna when IG is < 5%. Blast s are not inclu ded in IG and repor pratima separ ately if prese nt. Not Available [facility] (Lab) [address] [facility], [place], [address], 09/19/2024 19:12:48 09/19/19 25 09/18/2024 CBC W/DIF F absolute neutrophils 4.5 10'3/ uL 1.5-8. 0 Not Available [facility] (Lab) [address] [facility], [place], [address], 09/19/2024 19:12:48 09/19/19 25 09/18/2024 CBC W/DIF F absolute lymphocytes 1.9 10'3/ uL 1.0-4. 0 Not Available [facility] (Lab) [address] [facility], [place], [address], 09/19/2024 19:12:48 09/19/19 25 09/18/2024 CBC W/DIF F absolute monocytes 0.5 10'3/ uL 0.2-1. 0 Not Available [facility] (Lab) [address] [facility], [place], [address], 09/19/2024 19:12:48 09/19/19 25 09/18/2024 CBC W/DIF F absolute eosinophils 0.1 10'3/ uL 0.0-0. 6 Not Available [facility] (Lab) [address] [facility], [place], [address], 09/19/2024 19:12:48 09/19/19 25 09/18/2024 CBC W/DIF F absolute basophils 0.0 10'3/ uL 0.0-0. 3 Not Available [facility] (Lab) [address] [facility], [place], [address], 09/19/2024 19:12:48 09/19/19 25 09/18/2024 CBC W/DIF F absolute immature granulocytes 0.0 10'3/ uL 0.00-0 .10 Refer ence range s for nonbi nary/ inter sex or unspe cifie d gende r patie nts have not been estab lishe d. Pleas e refer to the follo wing table for range s estab lishe d for cisge nder patie nts and evalu ate in the clini vincent vance xt of the indiv idual patie nt: https ://chele akins book. nm.or g/gen derx Not Available [facility] (Lab) [address] [facility], [place], [address], 09/19/2024 19:12:48 09/19/1909/18/2024 HIV 1/2 ANTIG EN/AN TIBOD Y, REFLE X CONFI RMATI ON HIV antigen/anti body Nonrea ctive nonrea ctive HIV-1 antig en and HIV-1 /HIV- 2 antib odies were not detec pratima. No labor atory evide nce of HIV infec tion. Not Available [facility] (Lab) [address] [facility], [place], [address], 09/19/2024 19:12:49 09/19/1909/18/2024 HEPAT ITIS B SURFA CE ANTIG EN hepatitis B surface antigen Non-re active non-re active This assay was perfo rmed using [employer] ratio n reage nts and test kits. Value s obtai nicolette with other assay metho ds or kits canno t be used inter campos eably . Not Available [facility] (Lab) [address] [facility], [place], [address], 09/19/2024 19:12:49 09/19/1909/18/2024 HEPAT ITIS C ANTIB ILA SCREE N, REFLE X TO CONFI RMATI ON hepatitis C antibody Non-re active non-re active Antib odies to HCV Not Detec pratima, does not exclu de the possi bilit y of expos ure to HCV. Not Available [facility] (Lab) [address] [facility], [place], [address], 09/19/2024 19:12:50 09/19/1909/18/2024 RUBEL LA IGG ANTIB ILA, QUANT rubella antibodies, IgG Reacti ve reacti ve Not Available [facility] (Lab) [address] [facility], [place], [address], 09/19/2024 19:12:50 09/19/19 25 09/18/2024 RUBEL LA IGG ANTIB ILA, QUANT rubella antibodies, IgG quant 54.0 IU/mL >=10 Non-r eacti ve (Non- Immun e) <10 IU/mL React phuong (Immu ne) > or = 10 IU/mL Not Available [facility] (Lab) [address] [facility], [place], [address], 09/19/2024 19:12:50 09/19/1909/18/2024 TYPE/ RH/SC REEN ABO/Rh type A POS Not Available [facility] (Lab) [address] [facility], [place], [address], 09/19/2024 19:12:51 09/19/1909/18/2024 TYPE/ RH/SC REEN antibody screen NEG Not Available [facility] (Lab) [address] [facility], [place], [address], 09/19/2024 19:12:51 09/19/19 25 09/18/2024 TYPE/ RH/SC REEN exp date 2024 23:59 Not Available [facility] (Lab) [address] [facility], [place], [address], 09/19/2024 19:12:51 09/19/19 25 09/18/2024 RPR SCREE N, REFLE X TITER /CONF IRMAT ION RPR qualitative Nonrea ctive nonrea ctive Not Available [facility] (Lab) [address] [facility], [place], [address], 09/19/2024 19:12:51 09/19/1909/18/2024 HEMOG LOBIN A1C hemoglobin A1C 5.4 % 4.0-5. 6 The Ameri can [employer]abe danna [employer] iatio n recom mends that a prima ry goal of thera py shoul d be a HBA1C of < 7% and that physi cians shoul d reeva luate the treat ment regim en in patie nts with HBA1C value s consi stent ly > 8%. <5.7% Gloria l 5.7 - 6.4% Incre ased risk for diabe danna >=6.5 % Diagn ostic of diabe danna <7.0% Goal of thera py >8.0% Actio n sugge sted Not Available [facility] (Lab) [address] [facility], [place], [address], 09/19/2024 19:12:52 09/19/1909/18/2024 CULTU RE: URINE result report SEE RESULT S BELOW Test: Cultu re: Urine Speci men Sourc e: Urine - Clean Catch Speci men Type: Urine Speci men Date: 2024 1302 Resul t Date: 20245 Resul t Statu s: Final resul t Abnor mal: No Resul ting Lab: [facility] [address] [facility] [address] Tel: CULTU RE ----- ----- ----- --- No growt h in 1 day (dete ction level of 10,00 0 colon ies / ml.) Not Available [facility] (Lab) [address] [facility], [place], [address], 09/19/2024 22:31:54 09/19/1909/18/2024 drug scree n, urine Amphetamines : negati ve Not Available [facility] [address], [place], [address], 09/18/2024 12:58:08 09/19/19 25 09/18/2024 drug scree n, urine Cannabinoids : negati ve Not Available [facility] [address], [place], [address], 09/18/2024 12:58:08 09/19/19 25 09/18/2024 drug scree n, urine Cocaine: negati ve Not Available [facility] [address], [place], [address], 09/18/2024 12:58:08 09/19/19 25 09/18/2024 drug scree n, urine Opiates: negati ve Not Available [facility] [address], [place], [address], 09/18/2024 12:58:08 09/19/19 25 09/18/2024 drug scree n, urine Phenocyclidi ne: negati ve Not Available [facility] [address], [place], [address], 09/18/2024 12:58:08 09/19/19 25 09/18/2024 drug scree n, urine Barbiturates : negati ve Not Available [facility] [address], [place], [address], 09/18/2024 12:58:08 09/19/19 25 09/18/2024 drug scree n, urine Benzodiazepi rut: negati ve Not Available [facility] [address], [place], [address], 09/18/2024 12:58:08 09/19/19 25 09/18/2024 drug scree n, urine Ethanol: negati ve Not Available [facility] [address], [place], [address], 09/18/2024 12:58:08 09/19/19 25 09/18/2024 drug scree n, urine Hallucinogen s: negati ve Not Available [facility] [address], [place], [address], 09/18/2024 12:58:08 09/19/19 25 09/18/2024 drug scree n, urine Inhalants: negati ve Not Available [facility] [address], [place], [address], 09/18/2024 12:58:08 09/19/19 25 09/18/2024 drug scree n, urine Anabolic Steroids: negati ve Not Available [facility] [address], [place], [address], 09/18/2024 12:58:08 09/19/19 25 09/18/2024 drug scree n, urine Other: negati ve Not Available [facility] [address], [place], [address], 09/18/2024 12:58:08 12/25/19 25 12/24/2024 HEMOG LOBIN (HGB) HGB 11.2 g/dL (based on docume nted legal sex) 11.6-1 5.4 low Not Available [facility] (Lab) [address], [place], [address], 12/25/2024 11:30:32 12/25/19 25 12/24/2024 HEMAT OCRIT (HCT) HCT 34.3 % (based on docume nted legal sex) 34.0-4 5.0 Not Available [facility] (Lab) [address] [facility], [place], [address], 12/25/2024 11:30:33 12/25/19 25 12/24/2024 GTT - GESTA KULWINDER L SCREE N, ACOG OB glucose, 1 hour screen 84 mg/dL 70-135 Not Available [facility] (Lab) [address] [facility], [place], [address], 12/25/2024 11:30:33 12/25/19 25 12/24/2024 HIV 1/2 ANTIG EN/AN TIBOD Y, REFLE X CONFI RMATI ON HIV antigen/anti body Nonrea ctive nonrea ctive HIV-1 antig en and HIV-1 /HIV- 2 antib odies were not detec pratima. No labor atory evide nce of HIV infec tion. Not Available [facility] (Lab) [address] [place], [address], 12/25/2024 11:30:34 12/25/19 25 12/24/2024 RPR SCREE N, REFLE X TITER /CONF IRMAT ION RPR qualitative Nonrea ctive nonrea ctive Not Available [facility] (Lab) [address] [facility], [place], [address], 12/25/2024 11:30:35 02/19/20 25 02/18/2025 CULTU RE: GROUP B STREP SCREE N, REFLE X SUSCE PTIBI LITY result report SEE RESULT S BELOW Test: Cultu re: Group B Strep , Refle x Susce ptibi lity ([facility]/ [facility] ) Speci men Sourc e: Vagin a/Rec tom Speci men Type: Vagin al/Re ctal Speci men Date: 2024 1624 Resul t Date: 2024 1413 Resul t Statu s: Final resul t Abnor mal: No Resul ting Lab: [facility] [address] [facility] [address] [facility] [address] [facility] [address] Tel: CULTU RE ----- ----- ----- --- No Group B strep isola pratima at 2 days (lucian ctive broth enhan cemen t) Not Available [facility] (Lab) [address] [facility], [place], [address], 02/21/2025 15:16:47 09/19/1909/18/2024 US, obste tric, nucha l trans lucen cy No observ ation record ed. [email or web address] [facility] [address], [place], [address], 09/18/2024 09:39:19 09/19/19 25 09/18/2024 US, obste tric, 1st trime ster No observ ation record ed. [email or web address] [facility] [address], [place], [address], 09/18/2024 09:39:29 09/19/19 25 09/18/2024 US, obste tric, follo w-up No observ ation record ed. Elisabeth [address], [place], [address], 09/19/2024 22:38:18 10/30/19 25 10/29/2024 US, obste tric, 2nd or 3rd trime ster No observ ation record ed. [email or web address] [facility] [address], [place], [address], 10/29/2024 18:43:01 10/30/19 25 10/29/2024 US, obste tric, follo w-up No observ ation record ed. [email or web address] [address], [place], [address], 11/06/2024 11:15:29 11/27/19 25 11/26/2024 US, obste tric, follo w-up No observ ation record ed. [email or web address] [facility] [address], [place], [address], 11/26/2024 18:39:21 11/27/19 25 11/26/2024 US, obste tric, follo w-up No observ ation record ed. [email or web address] [address], [place], [address], 12/04/2024 16:09:37 12/25/19 25 12/24/2024 US, obste tric, follo w-up No observ ation record ed. [email or web address] [facility] [address], [place], [address], 12/24/2024 18:47:52 12/25/19 25 12/24/2024 US, obste tric, follo w-up No observ ation record ed. [email or web address] El[address]abeth [address], [place], [address], 12/24/2024 17:55:03 01/22/20 25 01/21/2025 US, obste tric, follo w-up No observ ation record ed. [email or web address] [facility] [address], [place], [address], 01/21/2025 18:26:14 01/22/20 25 01/21/2025 US, obste tric, follo w-up No observ ation record ed. [email or web address] [address], [place], [address], 01/21/2025 23:49:40 02/19/20 25 02/18/2025 US, obste tric, follo w-up No observ ation record ed. [email or web address] [facility] [address], [place], [address], 02/18/2025 18:26:30 02/19/20 25 02/18/2025 US, obste tric, follo w-up No observ ation record ed. [email or web address] Elisabeth [address] [facility] [address] [address], [place], [address], 02/18/2025 17:29:39 Result Notes None recorded. Problems Name Problem SNOMED Code Status Onset Date Resolution Date Notes Provider Name and Address Organization Details Recorded Time Anxiety in pregnanc y 2492119288 9109 Active off celexa for 3 years, andrea partida, [facility] 2 13:40:28 Anxiety in pregnanc y 2794478828 9109 Completed off celexa for 3 years, andrea partida, [facility] 2 13:40:28 Ultrasou nd scan abnormal [id number] Completed EIF- discusse d, reassure d Susannah partida, [facility] 2 13:40:28 History of abnormal cervical Papanico laou smear 302345265 Completed 02/17/20 23 hgsil hpv+ 03/26/20 22 ascus +hpv 2 lgsil hpv high risk hpv 16 neg std 8 neg pap neg std 7 ascus hpv high risk hpv 16 Sondra partida, [facility] 5 13:02:02 Human papillom a virus infectio n 619575348 Completed Sondra partida, [facility] 5 13:02:09 Cervical intraepi thelial neoplasi a grade 1 641027228 Completed 2021 Sondra partida [facility] 5 13:02:39 Anxiety 17303067 Completed doing well, has been off meds Chichi Camilo, CN [address], [place], [address], [facility] 5 08:42:52 History of hernia repair 8506619486 9109 Completed Sondra Bazan [facility], [facility] 5 13:03:17 Syphilis test finding 162736674 Completed 201507/20/2021 Encntr screen for infectio ns w sexl mode of transmis s;Record ed Elsewher e: No Locat ion: [facility] S ource: EHR Lead Massage Therapist roney: N Practi ce ID: [id number] Matty lable Time: 01:00:00 PM Ale partida, [facility] 2 15:34:17 Infectio n screenin g Completed 201507/20/2021 Encounte r for screenin g for oth infec/pa rastc diseases ;Recorde d Elsewher e: No Locat ion: [facility] S ource: EHR Lead Massage Therapist roney: N Practi ce ID: 0001 Matty lable Time: 01:00:00 PM Ale partida, [facility] 2 15:32:30 Screenin g for malignan t neoplasm of cervix Completed 201507/20/2021 Encounte r for screenin g for malignan t neoplasm of cervix;R ecorded Elsewher e: No Locat ion: [facility] S ource: EHR Lead Massage Therapist roney: N Practi ce ID: 0001 Matty lable Time: 01:00:00 PM Ale partida, [facility] 2 15:32:20 Pregnanc y, childbir th and puerperi um finding Completed 201507/20/2021 Encntr for suprvsn of normal first preg, second trimeste r;Practi ce ID: 0001 Ale partida, [facility] 2 15:34:[address] Concept Completed 201507/20/2021 Maternal care for oth abnormal ity and damage, unsp;Pra ctice ID: 0001 Ale partida, [facility] 2 15:32:23 Gestatio n period, 25 weeks 55402470 Completed 201507/20/2021 25 weeks gestatio n of pregnanc y;Practi ce ID: 0001 Ale partida, [facility] 2 15:35:03 Gestatio n period, 34 weeks 81643159 Completed 201507/20/2021 34 weeks gestatio n of pregnanc y;Practi ce ID: 0001 Ale partida, [facility] 2 15:32:17 Gestatio n period, 36 weeks 95227073 Completed 201507/20/2021 36 weeks gestatio n of pregnanc y;Practi ce ID: 0001 Ale partida, [facility] 2 15:34:27 Lacerati on of female perineum Completed 201507/20/2021 Second degree perineal lacerati on during delivery ;Practic e ID: 0001 Ale partida, [facility] 2 15:32:25 Gestatio n period, 39 weeks [id number] Completed 201507/20/2021 39 weeks gestatio n of pregnanc y;Practi ce ID: 0001 Ale partida, [facility] [address] 15:35:[address] Concept Completed 201607/20/2021 Encntr for estate planning counselor exam (general ) (routine ) w/o abn findings ;Practic e ID: 0001 Ale partida, [facility] [address] 15:32:[address] Concept Completed 201607/20/2021 Encntr for general adult medical exam w/o abnormal findings ;Recorde d Elsewher e: No Locat ion: [facility] S ource: EHR Lead Massage Therapist roney: N Jewell ce ID: 0001 Matty lable Time: 03:30:00 PM Ale partida [facility] 2 15:32:43 Procedur e by method Completed 201607/20/2021 Encounte r for other general counseli ng and advice on contrace ption;Re corded Elsewher e: No Locat ion: [facility] S ource: EHR Lead Massage Therapist roney: N Jewell ce ID: 0001 Matty lable Time: 03:30:00 PM Ale partida [facility] 2 15:33:58 Human papillom avirus deoxyrib onucleic acid detected , high risk on cervical specimen [id number] Completed 201607/20/2021 Cervical high risk HPV DNA test positive ;Recorde d Elsewher e: No Locat ion: [facility] S ource: EHR Lead Massage Therapist roney: N Jewell ce ID: [id number] Matty lable Time: 01:44:32 PM Ale partida [facility] 2 15:35:01 Atypical squamous cells of undeterm ined signific ance on cervical Papanico laou smear [id number] Completed 201607/20/2021 Atyp squam cell of undet signfc cyto smr crvx (ASC-US) ;Practic e ID: 0001 Ale partida [facility] 2 15:34:19 Pregnanc y test negative [id number] Completed 201607/20/2021 Encounte r for pregnanc y test, result negative ;Practic e ID: 0001 Ale partida, [facility] 2 15:32:38 Low grade squamous intraepi thelial lesion on cervical Papanico laou smear [id number] Completed 201607/20/2021 Low grade intrepit h lesion cyto smr crvx (LGSIL); Practice ID: 0001 Ale partida [facility] 2 15:34:32 Pregnanc y detectio n examinat ion Completed 201707/20/2021 Encounte r for pregnanc y test, result positive ;Practic e ID: 0001 Ale partida [facility] 2 15:35:05 Antenata l screenin g Completed 201707/20/2021 Encounte r for antenata l screenin g for uncertai n dates;Pr actice ID: 0001 Ale partida [facility] 2 15:32:28 Rubella screenin g status [id number] Completed 201707/20/2021 Encounte r for antenata l screenin g, unspecif ied;Flaquito rded Elsewher e: No Locat ion: [facility] S ource: EHR Lead Massage Therapist roney: N Jewell ce ID: 0001 Matty lable Time: 02:45:00 PM Ale Bradley helga [facility] 2 15:32:36 Antenata l screenin g for malforma tion Completed 201707/20/2021 Encounte r for antenata l screenin g for malforma tions;Pr actice ID: 0001 Ale partida [facility] 2 15:34:58 Uterine size for dates discrepa ncy Completed 201707/20/2021 Uterine size-twin e discrepa ncy, second trimeste r;Jasti ce ID: 0001 Ale partida [facility] 2 15:32:21 Gestatio n period, 24 weeks [id number] Completed 201707/20/2021 24 weeks gestatio n of pregnanc y;Practi ce ID: 0001 Ale partida, [facility] 2 15:32:41 Normal pregnanc y in multigra daniela [id number] Completed 201707/20/2021 Encounte r for suprvsn of normal pregnanc y, third trimeste r;Practi ce ID: 0001 Ale partida, [facility] 2 15:34:20 Gestatio n period, 40 weeks [id number] Completed 201707/20/2021 40 weeks gestatio n of pregnanc y;Practi ce ID: 0001 Ale Bradley helga, [facility] 2 15:34:25 Single live from singleto n pregnanc y [id number] Completed 201707/20/2021 Single live ;Pr actice ID: 0001 Ale partida, [facility] 2 15:32:18 Precipit ate labor [id number] Completed 201707/20/2021 Precipit ate labor;Pr actice ID: 0001 Ale partida, [facility] 2 15:34:24 Pelvic and perineal pain [id number] Completed 201707/20/2021 Pelvic and perineal pain;Pra ctice ID: 0001 Ale Bradley helga, [facility] 2 15:32:40 Lochia finding Completed 201707/20/2021 Encounte r for routine postpart um follow-u p;Practi ce ID: 0001 Ale Kirk partida, [facility] 2 15:34:16 Cervicov aginal cytology : Low grade squamous intraepi thelial lesion 166161336 Active 2021 Juliana Santiago MD [address], [place], [address], [facility] 2 14:55:31 Atypical glandula r cells on cervical Papanico laou smear [id number] Completed 2021 and LSIL. colpo done. Needs ECC and EMB followin g delivery . Susannah gutierrez null, [facility] 2 13:40:28 Pregnanc y [id number] Completed 202102/12/2022 Tracie Hernandez [facility], [facility] 5 09:47:33 Abnormal cervical Papanico laou smear 485180353 Active 202402/17/20 23 hgsil hpv+ 03/26/20 22 ascus +hpv 2 lgsil hpv high risk hpv 16 neg std 8 neg pap neg std 7 ascus hpv high risk hpv 16 Sondra Bazan null, [facility] 5 12:54:41 Pregnanc y [id number] Completed 202404/09/2025 Tracie Hernandez [facility], [facility] 5 09:47:33 Unwanted fertilit y [id number] Completed 2024 salpinge ctomy consents signed at 32 weeks MURRAY MARTINEZ MD [address], [place], [address], [facility] 5 15:17:44 Precipit ate labor [id number] Completed 2024 Timi Gonzalez MD [address], [place], [address], [facility] 5 15:22:17 Problem Notes None recorded. Procedures Surgical History Date Name Laterality Status Provider Name and Address Organization Details Recorded Time 08/28/19 25 Date of Last Pap Smear completed Sondra Bazan [facility] 09/18/2024 12:53:55 06/23/20 23 Colposcopy completed Timi Gonzalez MD [address], [place], [address], [facility] 06/23/2023 18:38:15 06/23/20 23 Colposcopy completed Sheree Wasserman [facility] 08/27/2024 14:36:50 06/23/20 23 Colposcopy completed Анна Stapleton [facility] 06/23/2023 11:05:42 03/26/20 22 Endometrial Biopsy completed Juliana Santiago MD [address], [place], [address], [facility] 03/26/2022 11:44:17 03/26/20 22 Colposcopy completed Sondra Bazan [facility] 09/18/2024 12:56:33 08/29/19 22 Colposcopy completed Juliana Santiago MD [address], [place], [address], [facility] 08/28/2021 14:57:14 01/04/20 17 Colposcopy completed Sondra Bazan [facility] 01/18/2022 15:35:17 06/27/19 07 termination of completed Sondra Bazan [facility] 01/18/2022 15:38:40 06/27/18 91 hernia repair completed Ale Bradley [facility] 07/20/2021 16:20:44 Imaging Results None recorded. Procedure Notes None recorded. Medical Equipment None Reported. Allergies No known drug allergies Medications Name Sig Start Date Stop Date Status Note LastModified by Organization Details LastModified Time Ortho-Nov um (28) 0.5 mg/0.75 mg/1 mg-35 mcg tablet TAKE 1 TABLET BY ORAL ROUTE EVERY DAY FOR 21 DAYS, FOLLOWED BY 7 DAYS OFF FOR A 28-DAY PACKET, TAKE ONE TABLET DAILY (NO DAYS OFF). 11/24 completed Prescrib ed Elsewher e: No Locat ion: [facility] odify By: seema mike DateTime : 04/18/20 17 09:50:56 AM Not Available Not Available Not Available citalopra m 20 mg tablet TAKE 1 TABLET BY ORAL ROUTE EVERY DAY 07/21 completed Not Available Not Available Not Available Loestrin 07/16 (21) 1 mg-20 mcg tablet take 1 tablet by oral route every day 07/20 completed Prescrib ed Elsewher e: No Locat ion: [facility] odify By: [email or web address] Rach r DateTime : 06/23/20 18 02:45:00 PM Not Available Not Available Not Available Vitamin D2 1,250 mcg (50,000 unit) capsule take 1 capsule by oral route every week 11/24 completed Prescrib ed Elsewher e: No Locat ion: [facility] odify By: seema mike DateTime : 09/16/19 16 01:22:56 PM Not Available Not Available Not Available active Not Available Not Avai lable Not Available [employer]-PNV-DH A 28 mg iron-1 mg-200 mg capsule take 1 capsule by oral route every day 02/05 completed Prescrib ed Elsewher e: No Locat ion: [facility] odify By: laurel cat DateTime : 12/13/19 18 11:10:03 AM Not Available Not Available Not Available Vitals Date Recorded Body height Body mass index (BMI) Body weight Systolic And Diastolic Provider Name and Address Organization Details Last Updated DateTime 05/01/2025 152.4 cm 32.8 kg/m2 98228.52 g 109/71 mm[Hg] Sofía Mendoza [facility] 05/01/2025 14:26:03 Social History Question Answer Notes LastModified by Organizat ion Details LastModified Time Tobacco Smoking Status Former Smoker Sondra Bazan [facility], [facility] 09/18/2024 19:15:23 Do You Have An Advance Directive? No Information not available 12/11/2021 Are You Blind Or Do You Have Difficulty Seeing? No Information not available 12/11/2021 What Is Your Level Of Caffeine Consumption? Occasional Information not available 12/11/2021 How Much Tobacco Do You Chew? None Information not available 12/11/2021 In The 14 Days Before Symptom Onset, Have You Had Close Contact With A Laboratory-confir med COVID-19 While That Case Was Ill? No Information not available 12/11/2021 In The 14 Days Before Symptom Onset, Have You Had Close Contact With A Person Who Is Under Investigation For COVID-19 While That Person Was Ill? No Information not available 12/11/2021 Have You Been To An Area Known To Be High Risk For COVID-19? No Information not available 12/11/2021 Are You Deaf Or Do You Have Serious Difficulty Hearing? Yes Information not available 12/11/2021 What Type Of Diet Are You Following? REGULAR Information not available 12/11/2021 What Is The Highest Grade Or Level Of School You Have Completed Or The Highest Degree You Have Received? [id number] Information not available 12/11/2021 Are There Any Guns Present In Your Home? No Information not available 12/11/2021 Do You Use Protection During Sex? Usually Information not available 12/11/2021 Do You Use Your Seat Belt Or Car Seat Routinely? Yes Information not available 12/11/2021 Do You Have Smoke And Carbon Monoxide Detectors In Your Home? Yes Information not available 12/11/2021 At What Age Did You Start Smoking Tobacco? 16 Information not available 12/11/2021 How Much Tobacco Do You Smoke? No Information not available 12/11/2021 Do You Use Sunscreen Routinely? No Information not available 12/11/2021 How Many Years Have You Smoked Tobacco? 10 Information not available 12/11/2021 Have You Used IV Drugs? No Information not available 12/11/2021 Do You Have Difficulty Walking Or Climbing Stairs? No [email or web address] Information not available 03/26/2022 Sex: Unknown Functional Status Question Answer Note LastModified by Organizat ion Details LastModified Time Do you use any illicit or recreational drugs? No Information not available 12/11/2021 Do you or have you ever used any other forms of tobacco or nicotine? Yes [email or web address] Information not available 09/18/2024 What is your level of alcohol consumption? None Information not available 12/11/2021 Are you able to walk independently without assistance or assistive devices? YESWOREST Information not available 12/11/2021 Are you able to care for yourself independently? 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 No [email or web address] Information not available 03/26/2022 Do you or have you ever used e-cigarettes or vape? Former user of electronic cigarettes [email or web address] Information not available 09/18/2024 What is your exercise level? Occasional Information not available 12/11/2021 Mental Status Question Answer Note LastModified by Organization D etails LastModified Time Do you feel stressed (tense, restless, nervous, or anxious, or unable to sleep at night)? [id number] Information not available 12/11/2021 Family History Relationship Description Onset Age of this Age Resolved Age Notes LastModified by Organization Details LastModified Time Mother Cyst of ovary [email or web address] Not available 2021 16:19:55 Notes:07/19/2021 Cancer risk form complete Medical History Condition Response Allergies (Food, seasonal, environmental ) N Other N Breast Cancer N Drug/Latex Allergies/Reactions N Blood Transfusion N Dermatologic Disorders N Lung Disease N Defects or Inherited Disease N Breast Problem N Gestational Diabetes N Hematologic disorders N Anesthesia Complications N History of STI Y Deep Vein Thrombosis N Polycystic ovary syndrome N Anxiety Disorder Y Autoimmune disease N Arthritis N Infertility N Polyps N Acid Reflux (GERD) N History of abnormal pap Y Cancer N Stroke N Varicosities N Neurologic/Epilepsy N Endometriosis N High Cholesterol N Headaches N Fibromyalgia N Kidney Disease N Heart Problems N Kidney or Bladder Problems N Thyroid Problems N GI Problems Y Eating Disorder N Anemia N Art (IVF or FET) N Psychiatric Illness N Ovarian Cancer N Diabetes N Pulmonary (TB, Asthma) N Hepatitis/Liver Disease N No Past Medical History N Eczema N Urinary Tract Infection N Abuse/Domestic Violence N Asthma N Trauma/Violence N Depression/ depression Y Heart Disease N Pre-Eclampsia N Hypertension N Osteoporosis N Thrombophilias N Gynecological History Statement/Question Response Date of Last Mammogram Flow Moderate Date of LMP 06/13/2024 N Was last menstrual period normal Y STIs/STDs Y Abnormal Pap Yes On BCP's at Conception? N HPV Vaccine N Colposcopy 06/23/2023 Duration of Flow (days) 7 Current Control Method None Age at First Child 26 Are cycles usually normal N Sexually Active? Y Menses Monthly N Date of DEXA bone scan Age of first menstrual cycle 13 Date of Last Pap Smear 08/27/2024 Sexual Problems? N LMP Approximate N 07/21/2021 Obstetrics History GPAL:G 6 P 4 0 2 4 Type Value Full Term 4 Induced 1 Spontaneous 1 Living 4 Total 6 Past Encounters Encounter ID Performer Location Encounter Start Date Encounter Closed Date Diagnosis/Indication Diagnosis SNOMED-CT Code Diagnosis ICD10 Code Diagnosis IMO Codes Diagnosis Note [id number] MURRAY MARTINEZ MD [place] [address] [address] 05/01/2025 14:10:22 05/01/2025 14:49:54 Consultation [id number] Z30.09 [id number] - patient desires permanent sterilizat ion- discussed risks, benefits, and alternativ es of bilateral salpingect kaylan, including risks of bleeding, infection and injury to surroundin g organs. Also discussed alternativ e contracept phuong options including partner vasectomy and patient declines.- tubal papers signed at 32 weeks gestation care status 24 [id number] Z39.2 [id number] S/p 6 weeks ago here today for a visit.1. Patient recovering well2. Plans to continue breast feeding3. Interested in bilatearl salpingect kaylan for contracept ion at this time. Risks, benefits, and alternativ es reviewed with the patient Health Concerns Section Related Observation LastModified by Organization Detai ls LastModified Time None Recorded Concern Status LastModified by Organization Details LastModified Time None Recorded Payers Encounter Date Sequence Insurance Name Policy Number Policy Florez Covered Member ID Florez Member ID Guarantor Name 05/01/2025 1 [facility] ON OR AFTER 12/25/20 (MEDICAID REPLACEMENT - HMO) Catrachita Cerna [id number] Catrachita Harrisonguson Notes Date Note Type Note Provider Name and Address Organization Details Recorded Time 05/01/2025 text/html VisitReported by Patient S/P on 03/20 at 40 weeks gestation. was uncomplicated. Complications with delivery: none. Patient denies any specific problems since delivery. Patient overall feeling well. Patient is without problems. Has not had a period yet. No bleeding. Bowel and bladder function are normal. Pap due 08/2025. Denies any signs or symptoms of depression. Is coping with parenting well. Patient has not been sexually active since delivery. Patient is interested in tubal ligation for contraception at this time. MURRAY MARTINEZ MD [address], [place], [address], [facility] 05/01/2025 14:48:05 OBGyn Episode Ob Episode Information Episode Created Date Number of Fetuses Patient Bloodtype Patient rh Status Prepregnancy Weight lbs Domestic Partner Domestic Partner Phone Father Name Baby Counselor Status 09/19/19 25 1 A Positive [address] CLOSED Fetus Data First Name Last Name Admitted to NICU Weight (g) Sex Living Outcome Pediatric Complications Fetus ID Race Codes Race Delivery Type 3430.28 95 M true Full Term [id number] Vaginal Delivery Problems Problem Notes Problem Name Start Date End Date Resolution Snomed Code Note Unwanted fertility 5 [id number] salpingectomycon sents signed at 32 weeks History of hernia repair 10507215238000 Human papilloma virus infection 834828039 Precipitate labor 5 97764204 Cervical intraepithelial neoplasia grade 1 388761227 2021 History of abnormal cervical Papanicolaou smear 539258850 3 hgsil hpv+03/26/2022 ascus +hpv07/21/2021 lgsil hpv high risk hpv 16 neg std 11/24/2017 neg pap neg std10/21/2016 ascus hpv high risk hpv 16 Anxiety 99039086 doing well , has been off meds Aníbal Calculation Initial Aníbal Date Initial Exam Date Initial Exam Provider Initial Ultrasound Date Last Menstrual Period Date Ultra Sound Weeks Gestation 03/20/2025 08/21/2024 08/21/2024 06/13/2024 8 Eighteen To Twenty Week Aníbal Update Ultra Sound Date Fundal Height At Umbil Quickening Date Ultra Sound Latest Weeks Gestation Final Aníbal Confirmed By Final Aníbal Confirmed Date Final Aníbal Date Ultra Sound Latest Days Gestation 10/30/19 25 19 1 Pre-agapito Flowsheet Flowsheet Date 09/18/2024 Cabrera Score Blood Edema Fundus Height Fundus Units Glucose Ketones Leukocytes Nitrite Labor Signs Protein Cervic Dilation Cervic Effacement Cervic Station neg none none trace Type Weight in lbs Pre/Post Dialysis Refused Weight 132.741382353843 BP Diastolic BP Location Tested BP Systolic BP Type 73 108 Fetus Heart Rate Present Fetus Movement A No Comments reviewed hx of 3 previous un complicated vaginal deliveries, reviewed US, education and precautions, begin routine care Flowsheet Date 10/15/2024 Cabrera Score Blood Edema Fundus Height Fundus Units Glucose Ketones Leukocytes Nitrite Labor Signs Protein Cervic Dilation Cervic Effacement Cervic Station Type Weight in lbs Pre/Post Dialysis Refused 139.809252796562 BP Diastolic BP Location Tested BP Systolic BP Type 70 L arm 115 sitting Fetus Heart Rate Present A 156 Fetus Movement A Yes Comments no complaints, no problems, routine care, no contractions, no vaginal bleeding, no loss of fluid, no cramping Flowsheet Date 10/29/2024 Cabrera Score Blood Edema Fundus Height Fundus Units Glucose Ketones Leukocytes Nitrite Labor Signs Protein Cervic Dilation Cervic Effacement Cervic Station Type Weight in lbs Pre/Post Dialysis Refused BP Diastolic BP Location Tested BP Systolic BP Type Fetus Heart Rate Present Fetus Movement Comments Flowsheet Date 10/29/2024 Cabrera Score Blood Edema Fundus Height Fundus Units Glucose Ketones Leukocytes Nitrite Labor Signs Protein Cervic Dilation Cervic Effacement Cervic Station Type Weight in lbs Pre/Post Dialysis Refused 143.313864206104 BP Diastolic BP Location Tested BP Systolic BP Type 69 L arm 114 sitting Fetus Heart Rate Present A 145 Fetus Movement Comments no complaints, no problems, routine care, no contractions, no vaginal bleeding, no loss of fluid, no cramping Flowsheet Date 11/26/2024 Cabrera Score Blood Edema Fundus Height Fundus Units Glucose Ketones Leukocytes Nitrite Labor Signs Protein Cervic Dilation Cervic Effacement Cervic Station Type Weight in lbs Pre/Post Dialysis Refused BP Diastolic BP Location Tested BP Systolic BP Type Fetus Heart Rate Present Fetus Movement Comments Flowsheet Date 11/26/2024 Cabrera Score Blood Edema Fundus Height Fundus Units Glucose Ketones Leukocytes Nitrite Labor Signs Protein Cervic Dilation Cervic Effacement Cervic Station Type Weight in lbs Pre/Post Dialysis Refused Weight 149.70860315628 BP Diastolic BP Location Tested BP Systolic BP Type 71 L arm 108 sitting Fetus Heart Rate Present A 142 Fetus Movement A Yes Comments no complaints, no problems, routine care, no contractions, no vaginal bleeding, no loss of fluid, no cramping Flowsheet Date 12/24/2024 Cabrera Score Blood Edema Fundus Height Fundus Units Glucose Ketones Leukocytes Nitrite Labor Signs Protein Cervic Dilation Cervic Effacement Cervic Station Type Weight in lbs Pre/Post Dialysis Refused BP Diastolic BP Location Tested BP Systolic BP Type Fetus Heart Rate Present Fetus Movement Comments Flowsheet Date 12/24/2024 Cabrera Score Blood Edema Fundus Height Fundus Units Glucose Ketones Leukocytes Nitrite Labor Signs Protein Cervic Dilation Cervic Effacement Cervic Station neg none Type Weight in lbs Pre/Post Dialysis Refused Weight 157.923240416574 BP Diastolic BP Location Tested BP Systolic BP Type 68 L arm 103 sitting Fetus Heart Rate Present A Present Fetus Movement A Yes Comments Good movement. No cram ping or bleeding. Overall feeling well. EFW 12%, HC 6%. UADs wnl, BPP 8/8. Will repeat in 4 weeks, discussed possible MFM referral for FGR if EFW drops below 10%. Patient voices understanding. GCT and labs today. Discussed tdap. RTC 2 weeks. Flowsheet Date 01/07/2025 Cabrera Score Blood Edema Fundus Height Fundus Units Glucose Ketones Leukocytes Nitrite Labor Signs Protein Cervic Dilation Cervic Effacement Cervic Station Type Weight in lbs Pre/Post Dialysis Refused 159.251137129855 BP Diastolic BP Location Tested BP Systolic BP Type 73 L arm 126 sitting Fetus Heart Rate Present A 154 Fetus Movement A Yes Comments no complaints, no problems, routine care, no contractions, no vaginal bleeding, no loss of fluid, no cramping Flowsheet Date 01/21/2025 Cabrera Score Blood Edema Fundus Height Fundus Units Glucose Ketones Leukocytes Nitrite Labor Signs Protein Cervic Dilation Cervic Effacement Cervic Station Type Weight in lbs Pre/Post Dialysis Refused BP Diastolic BP Location Tested BP Systolic BP Type Fetus Heart Rate Present Fetus Movement Comments Flowsheet Date 01/21/2025 Cabrera Score Blood Edema Fundus Height Fundus Units Glucose Ketones Leukocytes Nitrite Labor Signs Protein Cervic Dilation Cervic Effacement Cervic Station neg none Type Weight in lbs Pre/Post Dialysis Refused Weight 163.791181347572 BP Diastolic BP Location Tested BP Systolic BP Type 69 L arm 107 sitting Fetus Heart Rate Present A Present Fetus Movement A Yes Comments Good movement. No cram ping or bleeding. EFW 19%, HC 11%. Vertex, normal DANIEL. Patient would like to discuss permanent sterilization. She has completed childbearing and would like a permanent form of control. No PSH. She and her partner have discussed their options and would like to move forward with tubal ligation . Consent signed today. RTC 2 weeks. Discussed preadmission. Flowsheet Date 02/05/2025 Cabrera Score Blood Edema Fundus Height Fundus Units Glucose Ketones Leukocytes Nitrite Labor Signs Protein Cervic Dilation Cervic Effacement Cervic Station Type Weight in lbs Pre/Post Dialysis Refused Weight 167.040860114199 BP Diastolic BP Location Tested BP Systolic BP Type 69 L arm 104 sitting Fetus Heart Rate Present A 155 Fetus Movement A Yes Comments Doing well, good movem ent. No strong contractions, no bleeding. Preadmission scheduled. Repeat growth US in 2 weeks. GBS next visit. RTC 2 weeks. Flowsheet Date 02/18/2025 Cabrera Score Blood Edema Fundus Height Fundus Units Glucose Ketones Leukocytes Nitrite Labor Signs Protein Cervic Dilation Cervic Effacement Cervic Station Type Weight in lbs Pre/Post Dialysis Refused BP Diastolic BP Location Tested BP Systolic BP Type Fetus Heart Rate Present Fetus Movement Comments Flowsheet Date 02/18/2025 Cabrera Score Blood Edema Fundus Height Fundus Units Glucose Ketones Leukocytes Nitrite Labor Signs Protein Cervic Dilation Cervic Effacement Cervic Station 1cm 50% -3 Type Weight in lbs Pre/Post Dialysis Refused Weight 167.123475979732 BP Diastolic BP Location Tested BP Systolic BP Type 70 L arm 127 sitting Fetus Heart Rate Present A Present Fetus Movement A Yes Comments Good movement. No stro ng ctx, LOF, VB. Would like EIL On 03/20. Will schedule. EFW 25%, vertex. GBS collected. RTC 1 week. Flowsheet Date 02/27/2025 Cabrera Score Blood Edema Fundus Height Fundus Units Glucose Ketones Leukocytes Nitrite Labor Signs Protein Cervic Dilation Cervic Effacement Cervic Station 3cm 50% -2 Type Weight in lbs Pre/Post Dialysis Refused Weight 173.241335097651 BP Diastolic BP Location Tested BP Systolic BP Type 79 L arm 115 sitting Fetus Heart Rate Present A 145 Fetus Movement A Yes Comments Baby active, no strong ctx o r bleeding. Losing mucous plug. EIL scheduled 03/20. Flowsheet Date 03/06/2025 Cabrera Score Blood Edema Fundus Height Fundus Units Glucose Ketones Leukocytes Nitrite Labor Signs Protein Cervic Dilation Cervic Effacement Cervic Station 3cm 50% -2 Type Weight in lbs Pre/Post Dialysis Refused 174.47516732214 BP Diastolic BP Location Tested BP Systolic BP Type 81 L arm 127 sitting Fetus Heart Rate Present A 155 Fetus Movement A Yes Comments Doing well, good movem ent. No cramping or bleeding. Labor precautions reviewed. RTC 1 week. Flowsheet Date 03/13/2025 Cabrera Score Blood Edema Fundus Height Fundus Units Glucose Ketones Leukocytes Nitrite Labor Signs Protein Cervic Dilation Cervic Effacement Cervic Station 4cm 50% -2 Type Weight in lbs Pre/Post Dialysis Refused 176.074265105772 BP Diastolic BP Location Tested BP Systolic BP Type 79 L arm 125 sitting Fetus Heart Rate Present Fetus Movement A Yes Comments Doing well, no issues. Baby active. EIL next week. Discussed bilateral salpingectomy at 6-12 weeks . Labor precautions discussed. Flowsheet Date 03/20/2025 Cabrera Score Blood Edema Fundus Height Fundus Units Glucose Ketones Leukocytes Nitrite Labor Signs Protein Cervic Dilation Cervic Effacement Cervic Station Type Weight in lbs Pre/Post Dialysis Refused BP Diastolic BP Location Tested BP Systolic BP Type Fetus Heart Rate Present Fetus Movement Comments Menstrual History Last Menstrual Date Menses Monthly On Bcp Conception Prior Menses Frequency Hcg Plus Date Menarche Onset Age 1206/13/2024 Delivery Information Delivery Date Delivery Type Labor Anesthesia Weeks Gestation Incision Type Labor Labor Length Hrs Delivered By Post Complications Tubal Sterilization Discharge Date Comments 5 40 Discharge Information Feeding Method Contraceptive Method Maternal HG B and HCT Levels
--- OUTSIDE RECORDS SUMMARY | 2025-05-27 00:30 | XMS_ITS | Continuity of Care Document ---
Author Organization [facility] Address [address] [place] [address] Care Team Providers Care Lpn Cma Name Role Phone RITU MCGUIRE Primary Care [...] Referral None recorded. Procedures None recorded. Surgeries None recorded. Imaging None recorded. Medication Orders None recorded. Patient TargetsNo targets recorded. Patient InstructionsNo instructions recorded. Reason for Referral None Reported. Results Created Date Observation Date Name Description Value Unit Range Abnormal Flag Note LastModifiedBy Organization Detail LastModifiedTime 09/25/1909/24/2024 [UNIT Y] ANEUP LOIDY NIPT fraction 16.7% normal Not Available [facility] [address], [place], [address], 09/24/2024 14:19:42 09/25/19 25 09/24/2024 [UNIT Y] ANEUP LOIDY NIPT 22Q11.2 microdeletio n LOW RISK <1 in 10,000 normal Not Available [facility] [address], [place], [address], 09/24/2024 14:19:42 09/25/19 25 09/24/2024 [UNIT Y] ANEUP LOIDY NIPT sex chromosome aneuploidy NOT DETECT ED normal Not Available [facility] [address], [place], [address], 09/24/2024 14:19:42 09/25/19 25 09/24/2024 [UNIT Y] ANEUP LOIDY NIPT monosomy X LOW RISK <1 in 10,000 normal Not Available [facility] [address], [place], [address], 09/24/2024 14:19:42 09/25/19 25 09/24/2024 [UNIT Y] ANEUP LOIDY NIPT trisomy 13 LOW RISK <1 in 10,000 normal Not Available [facility] [address], [place], [address], 09/24/2024 14:19:42 09/25/19 25 09/24/2024 [UNIT Y] ANEUP LOIDY NIPT trisomy 18 LOW RISK <1 in 10,000 normal Not Available [facility] [address], [place], [address], 09/24/2024 14:19:42 09/25/19 25 09/24/2024 [UNIT Y] ANEUP LOIDY NIPT trisomy 21 LOW RISK <1 in 10,000 normal Not Available [facility] [address], [place], [address], 09/24/2024 14:19:42 09/25/19 25 09/24/2024 [UNIT Y] ANEUP LOIDY NIPT sex MALE normal Not Available [facility] [address], [place], [address], 09/24/2024 14:19:42 09/25/19 25 09/24/2024 [UNIT Y] ANEUP LOIDY NIPT gestation SINGLE TON normal Not Available [facility] [address], [place], [address], 09/24/2024 14:19:42 09/25/19 25 09/24/2024 [UNIT Y] ANEUP LORAY NIPT for detailed report, see pdf See PDF normal Not Available [facility] [address], [place], [address], 09/24/2024 14:19:42 09/27/19 25 09/26/2024 [UNIT Y] JANET Danielle sickle cell disease/beta -thalassemia /hemoglobino pathies carrier screen NEGATI VE normal Not Available [facility] [address], [place], [address], 09/26/2024 23:58:29 09/27/19 25 09/26/2024 [UNIT Y] JANET Danielle alpha-thalas semia carrier screen NEGATI VE normal Not Available [facility] [address], [place], [address], 09/26/2024 23:58:29 09/27/19 25 09/26/2024 [UNIT Y] JANET Danielle cystic fibrosis carrier screen NEGATI VE normal Not Available [facility] [address], [place], [address], 09/26/2024 23:58:29 09/27/19 25 09/26/2024 [UNIT Y] JANET Danielle spinal muscular atrophy carrier screen NEGATI VE 2 SMN1 copies , SNP not presen t normal Not Available [facility] [address], [place], [address], 09/26/2024 23:58:29 09/27/19 25 09/26/2024 [UNIT Y] JANET Danielle for detailed report, see pdf See PDF normal Not Available [facility] [address], [place], [address], 09/26/2024 23:58:29 09/19/19 25 09/18/2024 CBC W/DIF F WBC 7.0 10'3/ uL 3.5-10 .5 Not Available [facility] (Lab) [address], [place], [address], 09/19/2024 19:12:48 09/19/1909/18/2024 CBC W/DIF F RBC 4.17 10'6/ uL (based on docume nted legal sex) 3.80-5 .20 Not Available [facility] (Lab) [address], [place], [address], 09/19/2024 19:12:48 09/19/19 25 09/18/2024 CBC W/DIF F HGB 13.4 g/dL (based on docume nted legal sex) 11.6-1 5.4 Not Available [facility] (Lab) [address], [place], [address], 09/19/2024 19:12:48 09/19/1909/18/2024 CBC W/DIF F HCT 38.5 % (based on docume nted legal sex) 34.0-4 5.0 Not Available [facility] (Lab) [address], [place], [address], 09/19/2024 19:12:48 09/19/1909/18/2024 CBC W/DIF F MCV 92.3 fL 80.0-9 9.0 Not Available [facility] (Lab) [address], [place], [address], 09/19/2024 19:12:48 09/19/1909/18/2024 CBC W/DIF F MCH 32.1 pg 27.0-3 4.0 Not Available [facility] (Lab) [address], [place], [address], 09/19/2024 19:12:48 09/19/19 25 09/18/2024 CBC W/DIF F MCHC 34.8 g/dL 32.0-3 5.5 Not Available [facility] (Lab) [address] [place], [address], 09/19/2024 19:12:48 09/19/19 25 09/18/2024 CBC W/DIF F RDW 13.0 % 11.0-1 5.0 Not Available [facility] (Lab) [address] [facility], [place], [address], 09/19/2024 19:12:48 09/19/19 25 09/18/2024 CBC W/DIF F plt 243 10'3/ uL 150-40 0 Not Available [facility] (Lab) [address] [facility], [place], [address], 09/19/2024 19:12:48 09/19/19 25 09/18/2024 CBC W/DIF F MPV 10.2 fL 8.8-12 .1 Not Available [facility] (Lab) [address] [facility], [place], [address], 09/19/2024 19:12:48 09/19/19 25 09/18/2024 CBC W/DIF F neutrophils 64.4 % 34.0-7 3.0 Not Available [facility] (Lab) [address] [facility], [place], [address], 09/19/2024 19:12:48 09/19/19 25 09/18/2024 CBC W/DIF F lymphocytes 26.9 % 15.0-5 0.0 Not Available [facility] (Lab) [address] [facility], [place], [address], 09/19/2024 19:12:48 09/19/19 25 09/18/2024 CBC W/DIF F monocytes 6.7 % 1.0-15 .0 Not Available [facility] (Lab) [address] [facility], [place], [address], 09/19/2024 19:12:48 09/19/19 25 09/18/2024 CBC W/DIF F eosinophils 1.1 % 0.0-8. 0 Not Available [facility] (Lab) [address] [facility], [place], [address], 09/19/2024 19:12:48 09/19/19 25 09/18/2024 CBC W/DIF F basophils 0.6 % 0.0-2. 0 Not Available [facility] (Lab) [address] [facility], [place], [address], 09/19/2024 19:12:48 09/19/19 25 09/18/2024 CBC W/DIF [...] separ ately if prese nt. Not Available [facility] (Lab) [address] [facility], [place], [address], 09/19/2024 19:12:48 09/19/19 25 09/18/2024 CBC W/DIF F absolute neutrophils 4.5 10'3/ uL 1.5-8. 0 Not Available [facility] (Lab) [address] [facility], [place], [address], 09/19/2024 19:12:48 09/19/19 25 09/18/2024 CBC W/DIF F absolute lymphocytes 1.9 10'3/ uL 1.0-4. 0 Not Available [facility] (Lab) [address] [facility], [place], [address], 09/19/2024 19:12:48 09/19/19 25 09/18/2024 CBC W/DIF F absolute monocytes 0.5 10'3/ uL 0.2-1. 0 Not Available [facility] (Lab) [address] [facility], [place], [address], 09/19/2024 19:12:48 09/19/19 25 09/18/2024 CBC W/DIF F absolute eosinophils 0.1 10'3/ uL 0.0-0. 6 Not Available [facility] (Lab) [address] [facility], [place], [address], 09/19/2024 19:12:48 09/19/1909/18/2024 CBC W/DIF F absolute basophils 0.0 10'3/ uL 0.0-0. 3 Not Available [facility] (Lab) [address] [facility], [place], [address], 09/19/2024 19:12:48 09/19/1909/18/2024 CBC W/DIF F absolute immature granulocytes 0.0 [...] of the indiv idual patie nt: https ://la and book. nm.or g/gen derx Not Available [facility] (Lab) [address] [facility], [place], [address], 09/19/2024 19:12:48 09/19/1909/18/2024 HIV 1/2 ANTIG EN/AN TIBOD Y, REFLE X CONFI RMATI ON HIV antigen/anti body Nonrea ctive nonrea ctive HIV-1 antig en and HIV-1 /HIV- 2 antib odies were not detec praitma. No labor atory evide nce of HIV infec tion. Not Available [facility] (Lab) [address] [facility], [place], [address], 09/19/2024 19:12:49 09/19/1909/18/2024 HEPAT ITIS B SURFA CE ANTIG EN hepatitis B surface antigen Non-re active non-re active This assay was perfo rmed using [employer] ratio n reage nts and test kits. Value s obtai nicolette with other assay metho ds or kits canno t be used inter campos eably . Not Available [facility] (Lab) [address] [facility], [place], [address], 09/19/2024 19:12:49 09/19/19 25 09/18/2024 HEPAT ITIS C ANTIB ILA SCREE N, REFLE X TO CONFI RMATI ON hepatitis C antibody Non-re active non-re active Antib odies to HCV Not Detec pratima, does not exclu de the possi bilit y of expos ure to HCV. Not Available [facility] (Lab) [address] [facility], [place], [address], 09/19/2024 19:12:50 09/19/19 25 09/18/2024 RUBEL LA IGG ANTIB ILA, QUANT rubella antibodies, IgG Reacti ve reacti ve Not Available [facility] (Lab) [address] [facility], [place], [address], 09/19/2024 19:12:50 09/19/19 25 09/18/2024 RUBEL LA IGG ANTIB ILA, QUANT rubella antibodies, IgG quant 54.0 IU/mL >=10 Non-r eacti ve (Non- Immun e) <10 IU/mL React phuong (Immu ne) > or = 10 IU/mL Not Available [facility] (Lab) [address] [facility], [place], [address], 09/19/2024 19:12:50 09/19/1909/18/2024 TYPE/ RH/SC REEN ABO/Rh type A POS Not Available [facility] (Lab) [address] [facility], [place], [address], 09/19/2024 19:12:51 09/19/19 25 09/18/2024 TYPE/ RH/SC REEN antibody screen NEG Not Available [facility] (Lab) [address] [facility], [place], [address], 09/19/2024 19:12:51 09/19/19 25 09/18/2024 TYPE/ RH/SC REEN exp date 2024 23:59 Not Available [facility] (Lab) [address] [facility], [place], [address], 09/19/2024 19:12:51 09/19/19 25 09/18/2024 RPR SCREE N, REFLE X TITER /CONF IRMAT ION RPR qualitative Nonrea ctive nonrea ctive Not Available [facility] (Lab) [address] [facility], [place], [address], 09/19/2024 19:12:51 09/19/1909/18/2024 HEMOG LOBIN A1C hemoglobin [...] >8.0% Actio n sugge sted Not Available [facility] (Lab) [address] [facility], [place], [address], 09/19/2024 19:12:52 09/19/1909/18/2024 CULTU RE: URINE result report SEE RESULT S BELOW Test: Cultu re: Urine Speci men Sourc e: Urine - Clean Catch Speci men Type: Urine Speci men Date: 2024 1302 Resul t Date: 2024 Resul t Statu s: Final resul t Abnor mal: No Resul ting Lab: [facility] [address] [facility] [address] Tel: CULTU RE ----- ----- ----- --- No growt h in 1 day (dete ction level of 10,00 0 colon ies / ml.) Not Available [facility] (Lab) [address], [place], [address], 09/19/2024 22:31:54 09/19/19 25 09/18/2024 drug scree n, urine Amphetamines : negati ve Not Available [facility] [address], [place], [address], 09/18/2024 12:58:08 09/19/19 25 09/18/2024 drug scree n, urine Cannabinoids : negati ve Not Available [facility] [address], [place], [address], 09/18/2024 12:58:08 09/19/19 25 09/18/2024 drug scree n, urine Cocaine: negati ve Not Available [facility] [address], [place], [address], 09/18/2024 12:58:08 09/19/19 25 09/18/2024 drug scree n, urine Opiates: negati ve Not Available [facility] [address], [place], [address], 09/18/2024 12:58:08 09/19/19 25 09/18/2024 drug scree n, urine Phenocyclidi ne: negati ve Not Available [facility] [address], [place], [address], 09/18/2024 12:58:08 09/19/19 25 09/18/2024 drug scree n, urine Barbiturates : negati ve Not Available [facility] [address], [place], [address], 09/18/2024 12:58:08 09/19/19 25 09/18/2024 drug scree n, urine Benzodiazepi rut: negati ve Not Available [facility] [address], [place], [address], 09/18/2024 12:58:08 09/19/19 25 09/18/2024 drug scree n, urine Ethanol: negati ve Not Available [facility] [address], [place], [address], 09/18/2024 12:58:08 09/19/19 25 09/18/2024 drug scree n, urine Hallucinogen s: negati ve Not Available [facility] [address], [place], [address], 09/18/2024 12:58:08 09/19/19 25 09/18/2024 drug scree n, urine Inhalants: negati ve Not Available [facility] [address], [place], [address], 09/18/2024 12:58:08 09/19/19 25 09/18/2024 drug scree n, urine Anabolic Steroids: negati ve Not Available [facility] [address], [place], [address], 09/18/2024 12:58:08 09/19/19 25 09/18/2024 drug scree n, urine Other: negati ve Not Available [facility] [address], [place], [address], 09/18/2024 12:58:08 12/25/19 25 12/24/2024 HEMOG LOBIN (HGB) HGB 11.2 g/dL (based on docume nted legal sex) 11.6-1 5.4 low Not Available [facility] (Lab) [address], [place], [address], 12/25/2024 11:30:32 12/25/19 25 12/24/2024 HEMAT OCRIT (HCT) HCT 34.3 % (based on docume nted legal sex) 34.0-4 5.0 Not Available [facility] (Lab) [address] [facility], [place], [address], 12/25/2024 11:30:33 12/25/19 25 12/24/2024 GTT - GESTA KULWINDER L LIO Danielle, ACOG OB glucose, 1 hour screen 84 mg/dL 70-135 Not Available [facility] (Lab) [address] [facility], [place], [address], 12/25/2024 11:30:33 12/25/19 25 12/24/2024 HIV 1/2 ANTIG EN/AN TIBOD Y, REFLE X CONFI RMATI ON HIV antigen/anti body Nonrea ctive nonrea ctive HIV-1 antig en and HIV-1 /HIV- 2 antib odies were not detec pratima. No labor atory evide nce of HIV infec tion. Not Available [facility] (Lab) [address] [facility], [place], [address], 12/25/2024 11:30:34 12/25/19 25 12/24/2024 RPR SCREE N, REFLE X TITER /CONF IRMAT ION RPR qualitative Nonrea ctive nonrea ctive Not Available [facility] (Lab) [address] [facility], [place], [address], 12/25/2024 11:30:35 02/19/20 25 02/18/2025 CULTU RE: [...] t Abnor mal: No Resul ting Lab: [facility] [address] [facility] [address] Tel: CULTU RE ----- ----- ----- --- No Group B strep isola pratima at 2 days (lucian ctive broth enhan cemen t) Not Available [facility] (Lab) [address], [place], [address], 02/21/2025 15:16:47 09/19/19 25 09/18/2024 US, obste tric, nucha l trans lucen cy No observ ation record ed. [email or web address] [facility] [address], [place], [address], 09/18/2024 09:39:19 09/19/1909/18/2024 US, obste tric, 1st trime ster No observ ation record ed. [email or web address] [facility] [address], [place], [address], 09/18/2024 09:39:29 09/19/19 25 09/18/2024 US, obste tric, follo w-up No observ ation record ed. [email or web address] [address], [place], [address], 09/19/2024 22:38:18 10/30/19 25 10/29/2024 US, obste tric, 2nd or 3rd trime ster No observ ation record ed. [email or web address] [facility] [address], [place], [address], 10/29/2024 18:43:01 10/30/19 25 10/29/2024 US, obste tric, follo w-up No observ ation record ed. [email or web address] [address], [place], [address], 11/06/2024 11:15:29 11/27/19 25 11/26/2024 US, obste tric, follo w-up No observ ation record ed. [email or web address] [facility] [address], [place], [address], 11/26/2024 18:39:21 11/27/19 25 11/26/2024 US, obste tric, follo w-up No observ ation record ed. [email or web address] El[address], [place], [address], 12/04/2024 16:09:37 12/25/19 25 12/24/2024 US, obste tric, follo w-up No observ ation record ed. [email or web address] [facility] [address], [place], [address], 12/24/2024 18:47:52 12/25/19 25 12/24/2024 US, obste tric, follo w-up No observ ation record ed. [email or web address] El[address]abeth [address], [place], [address], 12/24/2024 17:55:03 01/22/20 25 01/21/2025 US, obste tric, follo w-up No observ ation record ed. [email or web address] [facility] [address], [place], [address], 01/21/2025 18:26:14 01/22/20 25 01/21/2025 US, obste tric, follo w-up No observ ation record ed. Elisabeth [address], [place], [address], 01/21/2025 23:49:40 02/19/20 25 02/18/2025 US, obste tric, follo w-up No observ ation record ed. [email or web address] [facility] [address], [place], [address], 02/18/2025 18:26:30 02/19/20 25 02/18/2025 US, obste tric, follo w-up No observ ation record ed. [email or web address] El[address]abeth [address], [place], [address], 02/18/2025 17:29:39 Result Notes None recorded. Problems Name Problem SNOMED Code Status Onset Date Resolution Date Notes Provider Name and Address Organization Details Recorded Time Anxiety in pregnanc y 9134449620 9109 Active off celexa for 3 years, stable Susannah partida, [facility] 2 13:40:28 Anxiety in pregnanc y 1833755476 9109 Completed off celexa for 3 years, stable Susannah partida, [facility] 2 13:40:28 Ultrasou nd scan abnormal 704551860 Completed EIF- discusse d, reassure d Susannah partida, [facility] 2 13:40:28 History of abnormal cervical Papanico laou smear [id number] Completed 02/17/20 23 hgsil hpv+ 03/26/20 22 ascus +hpv 2 lgsil hpv high risk hpv 16 neg std 8 neg pap neg std 7 ascus hpv high risk hpv 16 Sondra partida, [facility] 5 13:02:02 Human papillom a virus infectio n 174324086 Completed Sondra partida, [facility] 5 13:02:09 Cervical intraepi thelial neoplasi a grade 1 740451867 Completed 2021 Sondra partida, [facility] 5 13:02:39 Anxiety 57408173 Completed doing well, has been off meds Chichi Camilo, CNSharon [address], [place], [address], [facility] 5 08:42:52 History of hernia repair 6083336975 [address] [facility], [facility] 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 2 15:34:17 Infectio n screenin g Completed 201507/20/2021 Encounte r for screenin g for oth infec/pa rastc diseases ;Recorde d Elsewher e: No Locat ion: [facility] S ource: [employer] Diver roney: N Practi ce ID: 0001 Matty lable Time: 01:00:[address] [facility], [facility] 2 15:32:30 Screenin g for malignan t neoplasm of cervix Completed 201507/20/2021 Encounte r for screenin g for malignan t neoplasm of cervix;R ecorded Elsewher e: No Locat ion: [facility] S ource: [employer] Diver roney: N Practi ce ID: 0001 Matty lable Time: 01:00:00 PM Ale pratida, [facility] 2 15:32:20 Pregnanc y, childbir th and puerperi um finding Completed 201507/20/2021 Encntr for suprvsn of normal first preg, second trimeste r;Practi ce ID: [address] [facility], [facility] 2 15:34:[address] Concept Completed 201507/20/2021 Maternal care for oth abnormal ity and damage, unsp;Pra ctice ID: 0001 Ale partida, [facility] 2 15:32:23 Gestatio n period, 25 weeks [id number] Completed 201507/20/2021 25 weeks gestatio n of pregnanc y;Practi ce ID: 0001 Ale partida, [facility] 2 15:35:03 Gestatio n period, 34 weeks [id number] Completed 201507/20/2021 34 weeks gestatio n of pregnanc y;Practi ce ID: 0001 Ale partida, [facility] 2 15:32:17 Gestatio n period, 36 weeks 72367027 Completed 201507/20/2021 36 weeks gestatio n of pregnanc y;Practi ce ID: 0001 Ale partida, [facility] 2 15:34:27 Lacerati on of female perineum Completed 201507/20/2021 Second degree perineal lacerati on during delivery ;Practic e ID: 0001 Ale partida, [facility] 2 15:32:25 Gestatio n period, 39 weeks [id number] Completed 201507/20/2021 39 weeks gestatio n of pregnanc y;Practi ce ID: 0001 Ale partida, [facility] 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 [address] 15:32:[address] Concept Completed 201607/20/2021 Encntr for general adult medical exam w/o abnormal findings ;Recorde d Elsewher e: No Locat ion: [facility] S ource: [employer] Diver roney: N Jasti ce ID: 0001 Matty lable Time: 03:30:00 PM Ale partida [facility] 2 15:32:43 Procedur e by method Completed 201607/20/2021 Encounte r for other general counseli ng and advice on contrace ption;Re corded Elsewher e: No Locat ion: [facility] S ource: [employer] D[employer] roney: N Jasti ce ID: 0001 Matty lable Time: 03:30:00 PM Ale partida [facility] 2 15:33:58 Human papillom avirus deoxyrib onucleic acid detected , high risk on cervical specimen [id number] Completed 201607/20/2021 Cervical high risk HPV DNA test positive ;Recorde d Elsewher e: No Locat ion: [facility] S ource: [employer] Diver roney: N Jasti ce ID: 0001 Matty lable Time: 01:44:32 PM Ale partida [facility] 2 15:35:01 Atypical squamous cells of undeterm ined signific ance on cervical Papanico laou smear [id number] Completed 201607/20/2021 Atyp squam cell of undet signfc cyto smr crvx (ASC-US) ;Practic e ID: 0001 Ale partida [facility] 2 15:34:19 Pregnanc y test negative 068488263 Completed 201607/20/2021 Encounte r for pregnanc y test, result negative ;Practic e ID: 0001 Ale partida [facility] 2 15:32:38 Low grade squamous intraepi thelial lesion on cervical Papanico laou smear [id number] 9105 Completed 201607/20/2021 Low grade intrepit h lesion cyto smr crvx (LGSIL); Practice ID: 0001 Ale partida [facility] 2 15:34:32 Pregnanc y detectio n examinat ion Completed 201707/20/2021 Encounte r for pregnanc y test, result positive ;Practic e ID: 0001 Ale partida [facility] 2 15:35:05 Antenata l screenin g Completed 201707/20/2021 Encounte r for antenata l screenin g for uncertai n dates;Pr actice ID: 0001 Ale partida [facility] 2 15:32:28 Rubella screenin g status [id number] Completed 201707/20/2021 Encounte r for antenata l screenin g, unspecif ied;Flaquito rded Elsewher e: No Locat ion: [facility] S ource: EHR [employer] Diver roney: N Practi ce ID: 0001 Matty lable Time: 02:45:00 PM Ale partida [facility] 2 15:32:36 Antenata l screenin g for malforma tion Completed 201707/20/2021 Encounte r for antenata l screenin g for malforma tions;Pr actice ID: 0001 Ale partida [facility] 2 15:34:58 Uterine size for dates discrepa ncy Completed 201707/20/2021 Uterine size-twin e discrepa ncy, second trimeste r;Practi ce ID: [address] [facility], [facility] 2 15:32:21 Gestatio n period, 24 weeks [id number] Completed 201707/20/2021 24 weeks gestatio n of pregnanc y;Practi ce ID: 0001 Ale Kirk helga, [facility] 2 15:32:41 Normal pregnanc y in multigra daniela [id number] Completed 201707/20/2021 Encounte r for suprvsn of normal pregnanc y, third trimeste r;Practi ce ID: 0001 Ale Bradley helga, [facility] 2 15:34:20 Gestatio n period, 40 weeks [id number] Completed 201707/20/2021 40 weeks gestatio n of pregnanc y;Practi ce ID: 0001 Ale Bradley helga, [facility] 2 15:34:25 Single live from singleto n pregnanc y [id number] Completed 201707/20/2021 Single live ;Pr actice ID: 0001 Ale Rising Fawn helga, [facility] 2 15:32:18 Precipit ate labor [id number] Completed 201707/20/2021 Precipit ate labor;Pr actice ID: 0001 Ale Bradley helga, [facility] 2 15:34:24 Pelvic and perineal pain [id number] Completed 201707/20/2021 Pelvic and perineal pain;Pra ctice ID: 0001 Ale Bradley helga, [facility] 2 15:32:40 Lochia finding Completed 201707/20/2021 Encounte r for routine postpart um follow-u p;Practi ce ID: 0001 Ale Bradley helga, [facility] 2 15:34:16 Cervicov aginal cytology : Low grade squamous intraepi thelial lesion [id number] Active 2021 Juliana Santiago MD [address], [place], [address], [facility] 2 14:55:31 Atypical glandula r cells on cervical Papanico laou smear [id number] Completed 2021 and LSIL. colpo done. Needs ECC and EMB followin g delivery . Susannahjose e gutierrez null, [facility] 2 13:40:28 Pregnanc y [id number] Completed 202102/12/2022 Tracie Morenolibertad partida, [facility] 5 09:47:33 Abnormal cervical Papanico laou smear [id number] Active 202402/17/20 23 hgsil hpv+ 03/26/20 22 ascus +hpv 2 lgsil hpv high risk hpv 16 neg std 8 neg pap neg std 7 ascus hpv high risk hpv 16 Sondra partida, [facility] 5 12:54:41 Pregnanc y [id number] Completed 202404/09/[address] [facility], [facility] 5 09:47:33 Unwanted fertilit y 467813004 Completed 2024 salpinge ctomy consents signed at 32 weeks MURRAY MARTINEZ MD [address], [place], [address], [facility] 5 15:17:44 Precipit ate labor [id number] Completed 2024 Timi Gonzalez MD [address], [place], [address], [facility] 15:22:17 Problem Notes None recorded. Procedures Surgical History Date Name Laterality Status Provider Name and Address Organization Details Recorded Time 08/28/19 Date of Last Pap Smear completed Sondra Bazan [facility] 09/18/2024 12:53:55 06/23/20 23 Colposcopy completed Timi Gonzalez MD [address], [place], [address], [facility] 06/23/2023 18:38:15 06/23/20 23 Colposcopy completed Sheree Dumonter [facility] 08/27/2024 14:36:50 06/23/20 23 Colposcopy completed Аннаkatherin Stapleton [facility] 06/23/2023 11:05:42 03/26/20 22 Endometrial Biopsy completed Juliana Santiago MD [address], [place], [address], [facility] 03/26/2022 11:44:17 03/26/20 22 Colposcopy completed Sondra Bazan [facility] 09/18/2024 12:56:33 08/29/19 22 Colposcopy completed Juliana Santiago MD [address], [place], [address], [facility] 08/28/2021 14:57:14 01/04/20 17 Colposcopy completed Sondra Bazan [facility] 01/18/2022 15:35:17 06/27/19 07 termination of completed Sondra Bazan [facility] 01/18/2022 15:38:40 06/27/18 91 hernia repair completed Ale Bradley [facility] 07/20/2021 16:20:44 Imaging Results None recorded. [...] Prescrib ed Elsewher e: No Locat ion: [facility] odify By: seema Loyd r DateTime : 04/18/20 17 09:50:56 AM Not Available Not Available Not Available citalopra m 20 mg tablet TAKE 1 TABLET BY ORAL ROUTE EVERY DAY 07/21 completed Not Available Not Available Not Available Loestrin 07/16 (21) 1 mg-20 mcg tablet take 1 tablet by oral route every day 07/20 completed Prescrib ed Elsewher e: No Locat ion: [facility] odify By: [email or web address] Rach r DateTime : 06/23/20 18 02:45:00 PM Not Available Not Available Not Available Vitamin D2 1,250 mcg (50,000 unit) capsule take 1 capsule by oral route every week 11/24 completed Prescrib ed Elsewher e: No Locat ion: [facility] odify By: seema Loyd r DateTime : 09/16/19 16 01:22:56 PM Not Available Not Available Not Available active Not Available Not Avai lable Not Available [employer]-PNV-DH A 28 mg iron-1 mg-200 mg capsule take 1 capsule by oral route every day 02/05 completed Prescrib ed Elsewher e: No Locat ion: [facility] odify By: laurel cat DateTime : 12/13/19 18 11:10:03 AM Not Available Not Available Not Available Vitals Date Recorded Body weight Body mass index (BMI) Body height Systolic And Diastolic Provider Name and Address Organization Details Last Updated DateTime 03/13/2025 04305.257 12 g 34.4 kg/m2 152.4 cm 125/79 mm[Hg] Sofía Mendoza [facility] 03/13/2025 14:51:20 Social History Question Answer Notes LastModified by Organizat ion Details LastModified Time Tobacco Smoking Status Former Smoker Sondra partida, [facility] 09/18/2024 19:15:23 Do You Have An [...] Or The Highest Degree You Have Received? [id number] Information not available 12/11/2021 Are There Any [...] Have Difficulty Walking Or Climbing Stairs? No Information not available 03/26/2022 Sex: Unknown Functional Status Question Answer Note LastModified by Organizat ion Details LastModified Time Do you use any illicit or recreational drugs? No Information not available 12/11/2021 Do you or have you ever used any other forms of tobacco or nicotine? Yes [email or web address] Information not available 09/18/2024 What is your level of alcohol consumption? None Information not available 12/11/2021 Are you able to walk independently without assistance or assistive devices? [email or web address] Information not available 12/11/2021 Are you able to care for yourself independently? 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 No [email or web address] Information not available 03/26/2022 Do you or have you ever used e-cigarettes or vape? Former user of electronic cigarettes [email or web address] Information not available 09/18/2024 What is your exercise level? Occasional Information not available 12/11/2021 Mental Status Question Answer Note LastModified by Organization D etails LastModified Time Do you feel stressed (tense, restless, nervous, or anxious, or unable to sleep at night)? [id number] Information not available 12/11/2021 Family History Relationship Description Onset Age of this Age Resolved Age Notes LastModified by Organization Details LastModified Time Mother Cyst of ovary [email or web address] Not available 2021 16:19:55 Notes:07/19/2021 Cancer risk [...] ICD10 Code Diagnosis IMO Codes Diagnosis Note [id number] MURRAY MARTINEZ MD [place] [address],[place] [address] 02/18/2025 16:25:20 02/18/2025 17:32:44 Anxiety 45434374 F41.9 - mood stable Gestation period, 35 weeks 20727174 Z3A.35 7957362 - continue PNV [id number] MD Mati MARTINEZ [address],[place] [address] 02/18/2025 16:25:39 02/18/2025 17:20:49 care status 445612761 O36.5930 Z3A.35 551033 -continue PNV [id number] MD Mati MARTINEZ [address],[place] [address] 02/27/2025 13:57:33 02/27/2025 14:37:57 Anxiety 85290484 F41.9 - mood stable Gestation period, 37 weeks 98270449 Z3A.37 4711757 - continue PNV [id number] MURRAY MARTINEZ MD [place] [address],[place] [address] 03/06/2025 16:48:59 03/07/2025 09:00:54 Anxiety 11405965 F41.9 - mood stable Gestation period, 38 weeks 28274606 Z3A.38 9821910 - continue PNV [id number] MURRAY MARTINEZ MD [place] [address],[place] [address] 03/13/2025 14:46:57 03/13/2025 15:36:54 Unwanted fertility 893137713 Z30.09 23070145 - patient desires permanent sterilizat ion- discussed risks, benefits, and alternativ es of bilateral salpingect kaylan, including risks of bleeding, infection and injury to surroundin g organs. Also discussed alternativ e contracept phuong options including partner vasectomy and patient declines.- tubal papers signed Anxiety 14742594 F41.9 - mood stable Gestation period, 39 weeks 50439892 Z3A.39 3713966 - continue PNV Health Concerns Section Related Observation LastModified by Organization Detai ls LastModified Time None Recorded Concern Status LastModified by Organization Details LastModified Time None Recorded Payers Encounter Date Sequence Insurance Name Policy Number Policy Florez Covered Member ID Florez Member ID Guarantor Name 03/13/2025 1 [facility] - DOS ON OR AFTER 20 (MEDICAID REPLACEMENT - HMO) Catrachita Cerna [id number] Catrachita Cerna Notes Date Note Type Note Provider Name and Address Organization Details Recorded Time 03/13/2025 text/html Generic HPI TemplateReported by Patient MURRAY MARTINEZ MD [address], [place], [address], [facility] 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 Status 09/19/19 25 1 A Positive 132 [address] Krishan CLOSED Fetus Data First Name Last Name Admitted to NICU Weight (g) Sex Living Outcome Pediatric Complications Fetus ID Race Codes Race Delivery Type 3430.28 95 M true Full Term [id number] Vaginal Delivery Problems Problem Notes Problem Name Start Date End Date Resolution Snomed Code Note Unwanted fertility 5 898148044 salpingectomycon sents signed at 32 weeks History of hernia repair 35287148456779 Human papilloma virus infection 010839648 Precipitate labor 5 51208359 Cervical intraepithelial neoplasia grade 1 507634251 2021 History of abnormal cervical Papanicolaou smear 947174965 3 hgsil hpv+03/26/2022 ascus +hpv07/21/2021 lgsil hpv high risk hpv 16 neg std 11/24/2017 neg pap neg std10/21/2016 ascus hpv high risk hpv 16 Anxiety 00286718 doing well , has been off meds Aníbal Calculation Initial Aníbal Date Initial Exam Date Initial Exam Provider Initial Ultrasound Date Last Menstrual Period Date Ultra Sound Weeks Gestation 03/20/2025 08/21/2024 08/21/2024 06/13/2024 8 Eighteen To Twenty Week Aníbla Update Ultra Sound Date Fundal Height At Umbil Quickening Date Ultra Sound Latest Weeks Gestation Final Aníbal Confirmed By Final Anbíal Confirmed Date Final Aníbal Date Ultra Sound Latest Days Gestation 10/30/19 25 19 1 Pre-agapito Flowsheet Flowsheet Date 09/18/2024 Cabrera Score Blood Edema Fundus Height Fundus Units Glucose Ketones Leukocytes Nitrite Labor Signs Protein Cervic Dilation Cervic Effacement Cervic Station neg none none trace Type Weight in lbs Pre/Post Dialysis Refused Weight 132.154617784200 BP Diastolic BP Location Tested BP Systolic [...] Type Weight in lbs Pre/Post Dialysis Refused 139.247448423791 BP Diastolic BP Location Tested BP Systolic [...] Type Weight in lbs Pre/Post Dialysis Refused 143.519549193568 BP Diastolic BP Location Tested BP Systolic [...] Weight in lbs Pre/Post Dialysis Refused Weight 149.32542622653 BP Diastolic BP Location Tested BP Systolic [...] Weight in lbs Pre/Post Dialysis Refused Weight 157.471667230600 BP Diastolic BP Location Tested BP Systolic [...] Type Weight in lbs Pre/Post Dialysis Refused 159.571865348295 BP Diastolic BP Location Tested BP Systolic [...] Weight in lbs Pre/Post Dialysis Refused Weight 163.908026242683 BP Diastolic BP Location Tested BP Systolic [...] Weight in lbs Pre/Post Dialysis Refused Weight 167.722276843508 BP Diastolic BP Location Tested BP Systolic [...] Weight in lbs Pre/Post Dialysis Refused Weight 167.228640145681 BP Diastolic BP Location Tested BP Systolic [...] Weight in lbs Pre/Post Dialysis Refused Weight 173.899590434079 BP Diastolic BP Location Tested BP Systolic [...] Type Weight in lbs Pre/Post Dialysis Refused 174.10971384403 BP Diastolic BP Location Tested BP Systolic [...] Type Weight in lbs Pre/Post Dialysis Refused 176.996879736220 BP Diastolic BP Location Tested BP Systolic [...]
--- OUTSIDE RECORDS SUMMARY | 2025-05-27 00:30 | XMS_ITS | Continuity of Care Document ---
Author Organization [facility], [facility] Address [address] [place] [address] Care Team Providers Care Educational Manager Name Role Phone RITU MCGUIRE Primary Care [...] Not Available [facility] [address], [place], [address], 09/24/2024 14:19:42 09/25/19 25 09/24/2024 [UNIT Y] ANEUP LOIDY NIPT 22Q11.2 microdeletio n LOW RISK <1 in 10,000 normal Not Available [facility] [address], [place], [address], 09/24/2024 14:19:42 09/25/19 25 09/24/2024 [UNIT Y] ANEUP LOIDY NIPT sex chromosome aneuploidy NOT DETECT ED normal Not Available [facility] [address], [place], [address], 09/24/2024 14:19:42 09/25/19 25 09/24/2024 [UNIT Y] ANEUP LOIDY NIPT monosomy X LOW RISK <1 in 10,000 normal Not Available [facility] [address], [place], [address], 09/24/2024 14:19:42 09/25/19 25 09/24/2024 [UNIT Y] ANEUP LOIDY NIPT trisomy 13 LOW RISK <1 in 10,000 normal Not Available [facility] [address], [place], [address], 09/24/2024 14:19:42 09/25/19 25 09/24/2024 [UNIT Y] ANEUP LOIDY NIPT trisomy 18 LOW RISK <1 in 10,000 normal Not Available [facility] [address], [place], [address], 09/24/2024 14:19:42 09/25/19 25 09/24/2024 [UNIT Y] ANEUP LOIDY NIPT trisomy 21 LOW RISK <1 in 10,000 normal Not Available [facility] [address], [place], [address], 09/24/2024 14:19:42 09/25/19 25 09/24/2024 [UNIT Y] ANEUP LOIDY NIPT sex MALE normal Not Available [facility] [address], [place], [address], 09/24/2024 14:19:42 09/25/19 25 09/24/2024 [UNIT Y] ANEUP LOIDY NIPT gestation SINGLE TON normal Not Available [facility] [address], [place], [address], 09/24/2024 14:19:42 09/25/19 25 09/24/2024 [UNIT Y] ANEUP LORAY NIPT for detailed report, see pdf See PDF normal Not Available [facility] [address], [place], [address], 09/24/2024 14:19:42 09/27/19 25 09/26/2024 [UNIT Y] JANET Danielle sickle cell disease/beta -thalassemia /hemoglobino pathies carrier screen NEGATI VE normal Not Available [facility] [address], [place], [address], 09/26/2024 23:58:29 09/27/19 25 09/26/2024 [UNIT Y] JANET Danielle alpha-thalas semia carrier screen NEGATI VE normal Not Available [facility] [address], [place], [address], 09/26/2024 23:58:29 09/27/19 25 09/26/2024 [UNIT Y] JANET Danielle cystic fibrosis carrier screen NEGATI VE normal Not Available [facility] [address], [place], [address], 09/26/2024 23:58:29 09/27/19 25 09/26/2024 [UNIT Y] JANET Danielle spinal muscular atrophy carrier screen NEGATI VE 2 SMN1 copies , SNP not presen t normal Not Available [facility] [address], [place], [address], 09/26/2024 23:58:29 09/27/19 25 09/26/2024 [UNIT Y] JANET Danielle for detailed report, see pdf See PDF normal Not Available [facility] [address], [place], [address], 09/26/2024 23:58:29 09/19/19 25 09/18/2024 CBC W/DIF F WBC 7.0 10'3/ uL 3.5-10 .5 Not Available [facility] (Lab) [address], [place], [address], 09/19/2024 19:12:48 09/19/1909/18/2024 CBC W/DIF F RBC 4.17 10'6/ uL (based on docume nted legal sex) 3.80-5 .20 Not Available [facility] (Lab) [address], [place], [address], 09/19/2024 19:12:48 09/19/19 25 09/18/2024 CBC W/DIF F HGB 13.4 g/dL (based on docume nted legal sex) 11.6-1 5.4 Not Available [facility] (Lab) [address], [place], [address], 09/19/2024 19:12:48 09/19/1909/18/2024 CBC W/DIF F HCT 38.5 % (based on docume nted legal sex) 34.0-4 5.0 Not Available [facility] (Lab) [address], [place], [address], 09/19/2024 19:12:48 09/19/1909/18/2024 CBC W/DIF F MCV 92.3 fL 80.0-9 9.0 Not Available [facility] (Lab) [address], [place], [address], 09/19/2024 19:12:48 09/19/1909/18/2024 CBC W/DIF F MCH 32.1 pg 27.0-3 4.0 Not Available [facility] (Lab) [address], [place], [address], 09/19/2024 19:12:48 09/19/19 25 09/18/2024 CBC W/DIF F MCHC 34.8 g/dL 32.0-3 5.5 Not Available [facility] (Lab) [address] [place], [address], 09/19/2024 19:12:48 09/19/19 25 09/18/2024 CBC W/DIF F RDW 13.0 % 11.0-1 5.0 Not Available [facility] (Lab) [address] [facility], [place], [address], 09/19/2024 19:12:48 09/19/19 25 09/18/2024 CBC W/DIF F plt 243 10'3/ uL 150-40 0 Not Available [facility] (Lab) [address] [facility], [place], [address], 09/19/2024 19:12:48 09/19/19 25 09/18/2024 CBC W/DIF F MPV 10.2 fL 8.8-12 .1 Not Available [facility] (Lab) [address] [facility], [place], [address], 09/19/2024 19:12:48 09/19/19 25 09/18/2024 CBC W/DIF F neutrophils 64.4 % 34.0-7 3.0 Not Available [facility] (Lab) [address] [facility], [place], [address], 09/19/2024 19:12:48 09/19/19 25 09/18/2024 CBC W/DIF F lymphocytes 26.9 % 15.0-5 0.0 Not Available [facility] (Lab) [address] [facility], [place], [address], 09/19/2024 19:12:48 09/19/19 25 09/18/2024 CBC W/DIF F monocytes 6.7 % 1.0-15 .0 Not Available [facility] (Lab) [address] [facility], [place], [address], 09/19/2024 19:12:48 09/19/19 25 09/18/2024 CBC W/DIF F eosinophils 1.1 % 0.0-8. 0 Not Available [facility] (Lab) [address] [facility], [place], [address], 09/19/2024 19:12:48 09/19/19 25 09/18/2024 CBC W/DIF F basophils 0.6 % 0.0-2. 0 Not Available [facility] (Lab) [address] [facility], [place], [address], 09/19/2024 19:12:48 09/19/19 25 09/18/2024 CBC W/DIF [...] separ ately if prese nt. Not Available [facility] (Lab) [address] [facility], [place], [address], 09/19/2024 19:12:48 09/19/19 25 09/18/2024 CBC W/DIF F absolute neutrophils 4.5 10'3/ uL 1.5-8. 0 Not Available [facility] (Lab) [address] [facility], [place], [address], 09/19/2024 19:12:48 09/19/19 25 09/18/2024 CBC W/DIF F absolute lymphocytes 1.9 10'3/ uL 1.0-4. 0 Not Available [facility] (Lab) [address] [facility], [place], [address], 09/19/2024 19:12:48 09/19/19 25 09/18/2024 CBC W/DIF F absolute monocytes 0.5 10'3/ uL 0.2-1. 0 Not Available [facility] (Lab) [address] [facility], [place], [address], 09/19/2024 19:12:48 09/19/19 25 09/18/2024 CBC W/DIF F absolute eosinophils 0.1 10'3/ uL 0.0-0. 6 Not Available [facility] (Lab) [address] [facility], [place], [address], 09/19/2024 19:12:48 09/19/1909/18/2024 CBC W/DIF F absolute basophils 0.0 10'3/ uL 0.0-0. 3 Not Available [facility] (Lab) [address] [facility], [place], [address], 09/19/2024 19:12:48 09/19/1909/18/2024 CBC W/DIF F absolute [...] and book. nm.or g/gen derx Not Available [facility] (Lab) [address] [facility], [place], [address], 09/19/2024 19:12:48 09/19/1909/18/2024 HIV 1/2 ANTIG EN/AN TIBOD Y, REFLE X CONFI RMATI ON HIV antigen/anti body Nonrea ctive nonrea ctive HIV-1 antig en and HIV-1 /HIV- 2 antib odies were not detec pratima. No labor atory evide nce of HIV infec tion. Not Available [facility] (Lab) [address] [facility], [place], [address], 09/19/2024 19:12:49 09/19/1909/18/2024 HEPAT ITIS B SURFA CE ANTIG EN hepatitis B surface antigen Non-re active non-re active This assay was perfo rmed using [employer] n reage nts and test kits. Value s obtai nicolette with other assay metho ds or kits canno t be used inter campos eably . Not Available [facility] (Lab) [address] [facility], [place], [address], 09/19/2024 19:12:49 09/19/19 25 09/18/2024 HEPAT ITIS C ANTIB ILA SCREE N, REFLE X TO CONFI RMATI ON hepatitis C antibody Non-re active non-re active Antib odies to HCV Not Detec pratima, does not exclu de the possi bilit y of expos ure to HCV. Not Available [facility] (Lab) [address] [facility], [place], [address], 09/19/2024 19:12:50 09/19/19 25 09/18/2024 RUBEL LA IGG ANTIB ILA, QUANT rubella antibodies, IgG Reacti ve reacti ve Not Available [facility] (Lab) [address] [facility], [place], [address], 09/19/2024 19:12:50 09/19/19 25 09/18/2024 RUBEL LA IGG ANTIB ILA, QUANT rubella antibodies, IgG quant 54.0 IU/mL >=10 Non-r eacti ve (Non- Immun e) <10 IU/mL React phuong (Immu ne) > or = 10 IU/mL Not Available [facility] (Lab) [address] [facility], [place], [address], 09/19/2024 19:12:50 09/19/1909/18/2024 TYPE/ RH/SC REEN ABO/Rh type A POS Not Available [facility] (Lab) [address] [facility] [address], [place], [address], 09/19/2024 19:12:51 09/19/19 25 09/18/2024 TYPE/ RH/SC REEN antibody screen NEG Not Available [facility] (Lab) [address] [facility], [place], [address], 09/19/2024 19:12:51 09/19/19 25 09/18/2024 TYPE/ RH/SC REEN exp date 2024 23:59 Not Available [facility] (Lab) [address] [facility], [place], [address], 09/19/2024 19:12:51 09/19/19 25 09/18/2024 RPR SCREE N, REFLE X TITER /CONF IRMAT ION RPR qualitative Nonrea ctive nonrea ctive Not Available [facility] (Lab) [address] [facility], [place], [address], 09/19/2024 19:12:51 09/19/1909/18/2024 HEMOG LOBIN A1C hemoglobin [...] >8.0% Actio n sugge sted Not Available [facility] (Lab) [address] [facility], [place], [address], 09/19/2024 19:12:52 09/19/1909/18/2024 CULTU RE: URINE result report SEE RESULT S BELOW Test: Cultu re: Urine Speci men Sourc e: Urine - Clean Catch Speci men Type: Urine Speci men Date: 2024 1302 Resul t Date: 2024 Resul t Statu s: Final resul t Abnor mal: No Resul ting Lab: [facility] [address] [facility] [address] Tel: CULTU RE ----- ----- ----- --- No growt h in 1 day (dete ction level of 10,00 0 colon ies / ml.) Not Available [facility] (Lab) [address], [place], [address], 09/19/2024 22:31:54 09/19/19 25 09/18/2024 drug scree n, urine Amphetamines : negati ve Not Available [address], [place], [address], 09/18/2024 12:58:08 09/19/19 25 09/18/2024 drug scree n, urine Cannabinoids : negati ve Not Available [address], [place], [address], 09/18/2024 12:58:08 09/19/19 25 09/18/2024 drug scree n, urine Cocaine: negati ve Not Available [address], [place], [address], 09/18/2024 12:58:08 09/19/19 25 09/18/2024 drug scree n, urine Opiates: negati ve Not Available [address], [place], [address], 09/18/2024 12:58:08 09/19/19 25 09/18/2024 drug scree n, urine Phenocyclidi ne: negati ve Not Available [address], [place], [address], 09/18/2024 12:58:08 09/19/19 25 09/18/2024 drug scree n, urine Barbiturates : negati ve Not Available [address], [place], [address], 09/18/2024 12:58:08 09/19/19 25 09/18/2024 drug scree n, urine Benzodiazepi rut: negati ve Not Available [address], [place], [address], 09/18/2024 12:58:08 09/19/19 25 09/18/2024 drug scree n, urine Ethanol: negati ve Not Available [address], [place], [address], 09/18/2024 12:58:08 09/19/19 25 09/18/2024 drug scree n, urine Hallucinogen s: negati ve Not Available [address], [place], [address], 09/18/2024 12:58:08 09/19/19 25 09/18/2024 drug scree n, urine Inhalants: negati ve Not Available [address], [place], [address], 09/18/2024 12:58:08 09/19/19 25 09/18/2024 drug scree n, urine Anabolic Steroids: negati ve Not Available [address], [place], [address], 09/18/2024 12:58:08 09/19/19 25 09/18/2024 drug scree n, urine Other: negati ve Not Available [address], [place], [address], 09/18/2024 12:58:08 12/25/19 25 12/24/2024 HEMOG LOBIN (HGB) HGB 11.2 g/dL (based on docume nted legal sex) 11.6-1 5.4 low Not Available [facility] (Lab) [address], [place], [address], 12/25/2024 11:30:32 12/25/19 25 12/24/2024 HEMAT OCRIT (HCT) HCT 34.3 % (based on docume nted legal sex) 34.0-4 5.0 Not Available [facility] (Lab) [address] [facility], [place], [address], 12/25/2024 11:30:33 12/25/19 25 12/24/2024 GTT - GESTA KULWINDER L LIO Danielle, ACOG OB glucose, 1 hour screen 84 mg/dL 70-135 Not Available [facility] (Lab) [address] [facility], [place], [address], 12/25/2024 11:30:33 12/25/19 25 12/24/2024 HIV 1/2 ANTIG EN/AN TIBOD Y, REFLE X CONFI RMATI ON HIV antigen/anti body Nonrea ctive nonrea ctive HIV-1 antig en and HIV-1 /HIV- 2 antib odies were not detec pratima. No labor atory evide nce of HIV infec tion. Not Available [facility] (Lab) [address] [facility], [place], [address], 12/25/2024 11:30:34 12/25/19 25 12/24/2024 RPR SCREE N, REFLE X TITER /CONF IRMAT ION RPR qualitative Nonrea ctive nonrea ctive Not Available [facility] (Lab) [address] [facility], [place], [address], 12/25/2024 11:30:35 02/19/20 25 02/18/2025 CULTU RE: [...] t Abnor mal: No Resul ting Lab: [facility] [address] [facility] [address] [facility] [address] [facility] [address] Tel: CULTU RE ----- ----- ----- --- No Group B strep isola pratima at 2 days (lucian ctive broth enhan cemen t) Not Available [facility] (Lab) [address], [place], [address], 02/21/2025 15:16:47 09/19/19 25 09/18/2024 US, obste tric, nucha l trans lucen cy No observ ation record ed. [email or web address] [address], [place], [address], 09/18/2024 09:39:19 09/19/1909/18/2024 US, obste tric, 1st trime ster No observ ation record ed. [email or web address] [address], [place], [address], 09/18/2024 09:39:29 09/19/19 25 09/18/2024 US, obste tric, follo w-up No observ ation record ed. [email or web address] [address], [place], [address], 09/19/2024 22:38:18 10/30/19 25 10/29/2024 US, obste tric, 2nd or 3rd trime ster No observ ation record ed. [email or web address] [address], [place], [address], 10/29/2024 18:43:01 10/30/19 25 10/29/2024 US, obste tric, follo w-up No observ ation record ed. [email or web address] [address], [place], [address], 11/06/2024 11:15:29 11/27/19 25 11/26/2024 US, obste tric, follo w-up No observ ation record ed. [email or web address] [address], [place], [address], 11/26/2024 18:39:21 11/27/19 25 11/26/2024 US, obste tric, follo w-up No observ ation record ed. [email or web address] [address], [place], [address], 12/04/2024 16:09:37 12/25/19 25 12/24/2024 US, obste tric, follo w-up No observ ation record ed. [email or web address] [address], [place], [address], 12/24/2024 18:47:52 12/25/19 25 12/24/2024 US, obste tric, follo w-up No observ ation record ed. [email or web address] El[address]abeth [address], [place], [address], 12/24/2024 17:55:03 01/22/20 25 01/21/2025 US, obste tric, follo w-up No observ ation record ed. [email or web address] [address], [place], [address], 01/21/2025 18:26:14 01/22/20 25 01/21/2025 US, obste tric, follo w-up No observ ation record ed. [email or web address] [address], [place], [address], 01/21/2025 23:49:40 02/19/20 25 02/18/2025 US, obste tric, follo w-up No observ ation record ed. [email or web address] [address], [place], [address], 02/18/2025 18:26:30 02/19/20 25 02/18/2025 US, obste tric, follo w-up No observ ation record ed. [email or web address] El[address]abeth [address], [place], [address], 02/18/2025 17:29:39 Result Notes None recorded. Problems Name Problem SNOMED Code Status Onset Date Resolution Date Notes Provider Name and Address Organization Details Recorded Time Anxiety in pregnanc y 6042188070 9109 Active off celexa for 3 years, stable Susannah partida, [facility] 2 13:40:28 Anxiety in pregnanc y 3226495124 9109 Completed off celexa for 3 years, stable Susannah partida, [facility] 2 13:40:28 Ultrasou nd scan abnormal 397684113 Completed EIF- discusse d, reassure d Susannah partida, [facility] 2 13:40:28 History of abnormal cervical Papanico laou smear 495157092 Completed 02/17/20 23 hgsil hpv+ 03/26/20 22 ascus +hpv 2 lgsil hpv high risk hpv 16 neg std 8 neg pap neg std 7 ascus hpv high risk hpv 16 Sondra partida, [facility] 5 13:02:02 Human papillom a virus infectio n 628707521 Completed Sondra partida, [facility] 5 13:02:09 Cervical intraepi thelial neoplasi a grade 1 527590981 Completed 2021 Sondra partida, [facility] 5 13:02:39 Anxiety 95125356 Completed doing well, has been off meds Chichi Camilo, CNSharon [address], [place], [address], [facility] 5 08:42:52 History of hernia repair 7108551074 9109 Completed Sondra Bazan [facility], [facility] 5 13:03:17 Syphilis test finding 698927579 Completed 201507/20/2021 Encntr screen for infectio ns w sexl mode of transmis s;Record ed Elsewher e: No Locat ion: [facility] S ource: EHR Recreation Therapy Director roney: N Practi ce ID: 0001 Matty lable Time: 01:00:00 PM Ale partida, [facility] 2 15:34:17 Infectio n screenin g Completed 201507/20/2021 Encounte r for screenin g for oth infec/pa rastc diseases ;Recorde d Elsewher e: No Locat ion: [facility] S ource: EHR Recreation Therapy Director roney: N Practi ce ID: 0001 Matty lable Time: 01:00:00 PM Ale Bradley [facility], [facility] 2 15:32:30 Screenin g for malignan t neoplasm of cervix Completed 201507/20/2021 Encounte r for screenin g for malignan t neoplasm of cervix;R ecorded Elsewher e: No Locat ion: [facility] S ource: EHR Recreation Therapy Director roney: N Practi ce ID: 0001 Matty lable Time: 01:00:00 PM Ale partida, [facility] 2 15:32:20 Pregnanc y, childbir th and puerperi um finding Completed 201507/20/2021 Encntr for suprvsn of normal first preg, second trimeste r;Practi ce ID: 0001 Ale Bradley [facility], [facility] 2 15:34:[address] Concept Completed 201507/20/2021 Maternal care for oth abnormal ity and damage, unsp;Pra ctice ID: 0001 Ale partida, [facility] 2 15:32:23 Gestatio n period, 25 weeks 55900830 Completed 201507/20/2021 25 weeks gestatio n of pregnanc y;Practi ce ID: 0001 Ale partida, [facility] 2 15:35:03 Gestatio n period, 34 weeks 64494657 Completed 201507/20/2021 34 weeks gestatio n of pregnanc y;Practi ce ID: 0001 Ale partida, [facility] 2 15:32:17 Gestatio n period, 36 weeks 83377508 Completed 201507/20/2021 36 weeks gestatio n of pregnanc y;Practi ce ID: 0001 Ale partida, [facility] 2 15:34:27 Lacerati on of female perineum Completed 201507/20/2021 Second degree perineal lacerati on during delivery ;Practic e ID: 0001 Ale partida, [facility] 2 15:32:25 Gestatio n period, 39 weeks [id number] Completed 201507/20/2021 39 weeks gestatio n of pregnanc y;Practi ce ID: 0001 Ale partida, [facility] 2 15:35:[address] Concept Completed 201607/20/2021 Encntr for oxygen therapist exam (general ) (routine ) w/o abn findings ;Practic e ID: Jyothi partida, [facility] [address] 15:32:[address] Concept Completed 201607/20/2021 Encntr for general adult medical exam w/o abnormal findings ;Recorde d Elsewher e: No Locat ion: [facility] S ource: EHR Recreation Therapy Director roney: N Jasti ce ID: 0001 Matty lable Time: 03:30:00 PM Ale partida [facility] 2 15:32:43 Procedur e by method Completed 201607/20/2021 Encounte r for other general counseli ng and advice on contrace ption;Re corded Elsewher e: No Locat ion: [facility] S ource: EHR Recreation Therapy Director roney: N Jasti ce ID: 0001 Matty lable Time: 03:30:00 PM Ale partida [facility] 2 15:33:58 Human papillom avirus deoxyrib onucleic acid detected , high risk on cervical specimen 606242477 Completed 201607/20/2021 Cervical high risk HPV DNA test positive ;Recorde d Elsewher e: No Locat ion: [facility] S ource: EHR Recreation Therapy Director roney: N Jasti ce ID: 0001 Matty lable Time: 01:44:32 PM Ale partida [facility] 2 15:35:01 Atypical squamous cells of undeterm ined signific ance on cervical Papanico laou smear 989892595 Completed 201607/20/2021 Atyp squam cell of undet signfc cyto smr crvx (ASC-US) ;Practic e ID: 0001 Ale partida [facility] 2 15:34:19 Pregnanc y test negative 602853446 Completed 201607/20/2021 Encounte r for pregnanc y test, result negative ;Practic e ID: 0001 Ale partida [facility] 2 15:32:38 Low grade squamous intraepi thelial lesion on cervical Papanico laou smear 0761938644 9105 Completed 201607/20/2021 Low grade intrepit h lesion cyto smr crvx (LGSIL); Practice ID: 0001 Ale partida [facility] 2 15:34:32 Pregnanc y detectio n examinat ion Completed 201707/20/2021 Encounte r for pregnanc y test, result positive ;Practic e ID: 0001 Ale partida [facility] 2 15:35:05 Antenata l screenin g Completed 201707/20/2021 Encounte r for antenata l screenin g for uncertai n dates;Pr actice ID: 0001 Ale partida [facility] 2 15:32:28 Rubella screenin g status [id number] Completed 201707/20/2021 Encounte r for antenata l screenin g, unspecif ied;Flaquito rded Elsewher e: No Locat ion: [facility] S ource: EHR Recreation Therapy Director roney: N Practi ce ID: 0001 Matty lable Time: 02:45:00 PM Ale partida [facility] 2 15:32:36 Antenata l screenin g for malforma tion Completed 201707/20/2021 Encounte r for antenata l screenin g for malforma tions;Pr actice ID: 0001 Ale partida [facility] 2 15:34:58 Uterine size for dates discrepa ncy Completed 201707/20/2021 Uterine size-twin e discrepa ncy, second trimeste r;Practi ce ID: 0001 Ale Bradley [facility], [facility] 2 15:32:21 Gestatio n period, 24 weeks [id number] Completed 201707/20/2021 24 weeks gestatio n of pregnanc y;Practi ce ID: 0001 Ale [place] helga, [facility] 2 15:32:41 Normal pregnanc y in multigra daniela [id number] Completed 201707/20/2021 Encounte r for suprvsn of normal pregnanc y, third trimeste r;Practi ce ID: 0001 Ale [place] hel[place], [facility] 2 15:34:20 Gestatio n period, 40 weeks [id number] Completed 201707/20/2021 40 weeks gestatio n of pregnanc y;Practi ce ID: 0001 Ale [place] hel[place], [facility] 2 15:34:25 Single live from singleto n pregnanc y [id number] Completed 201707/20/2021 Single live ;Pr actice ID: 0001 Ale [place] helga, [facility] 2 15:32:18 Precipit ate labor [id number] Completed 201707/20/2021 Precipit ate labor;Pr actice ID: 0001 Ale [place] helga, [facility] 2 15:34:24 Pelvic and perineal pain [id number] Completed 201707/20/2021 Pelvic and perineal pain;Pra ctice ID: 0001 Ale [place] hel[place], [facility] 2 15:32:40 Lochia finding Completed 201707/20/2021 Encounte r for routine postpart um follow-u p;Practi ce ID: 0001 Ale [place], [facility] 2 15:34:16 Cervicov aginal cytology : Low grade squamous intraepi thelial lesion [id number] Active 2021 Juliana Santiago MD [address], [place], [address], [facility] 2 14:55:31 Atypical glandula r cells on cervical Papanico laou smear [id number] Completed 2021 and LSIL. colpo done. Needs ECC and EMB followin g delivery . Susannahjose e gutierrez null, [facility] 2 13:40:28 Pregnanc y [id number] Completed 202102/12/2022 Tracie Morenolibertad partida, [facility] 5 09:47:33 Abnormal cervical Papanico laou smear [id number] Active 202402/17/20 23 hgsil hpv+ 03/26/20 22 ascus +hpv 2 lgsil hpv high risk hpv 16 neg std 8 neg pap neg std 7 ascus hpv high risk hpv 16 Sondra partida, [facility] 5 12:54:41 Pregnanc y 02999835 Completed 202404/09/2025 Tracie Mary [facility], [facility] 5 09:47:33 Unwanted fertilit y 274840045 Completed 2024 salpinge ctomy consents signed at 32 weeks MURRAY MARTINEZ MD [address], [place], [address], [facility] 5 15:17:44 Precipit ate labor [id number] Completed 2024 Timi Gonzalez MD [address], [place], [address], [facility] 15:22:17 Problem Notes None recorded. Procedures Surgical History Date Name Laterality Status Provider Name and Address Organization Details Recorded Time 08/28/19 Date of Last Pap Smear completed Sondra Bazan [facility] 09/18/2024 12:53:55 06/23/20 23 Colposcopy completed Timi Gonzalez MD [address], [place], [address], [facility] 06/23/2023 18:38:15 06/23/20 23 Colposcopy completed Sheree Dumonter [facility] 08/27/2024 14:36:50 06/23/20 23 Colposcopy completed Аннаkatherin Stapleton [facility] 06/23/2023 11:05:42 03/26/20 22 Endometrial Biopsy completed Juliana Santiago MD [address], [place], [address], [facility] 03/26/2022 11:44:17 03/26/20 22 Colposcopy completed Sondra Bazan [facility] 09/18/2024 12:56:33 08/29/19 22 Colposcopy completed Juliana Santiago MD [address], [place], [address], [facility] 08/28/2021 14:57:14 01/04/20 17 Colposcopy completed Sondra Bazan [facility] 01/18/2022 15:35:17 06/27/19 07 termination of completed Sondra Bazan [facility] 01/18/2022 15:38:40 06/27/18 91 hernia repair completed Ale Bradley [facility] 07/20/2021 16:20:44 Imaging Results None recorded. [...] Prescrib ed Elsewher e: No Locat ion: [facility] odify By: seema Loyd r DateTime : 04/18/20 17 09:50:56 AM Not Available Not Available Not Available citalopra m 20 mg tablet TAKE 1 TABLET BY ORAL ROUTE EVERY DAY 07/21 completed Not Available Not Available Not Available Loestrin 07/16 (21) 1 mg-20 mcg tablet take 1 tablet by oral route every day 07/20 completed Prescrib ed Elsewher e: No Locat ion: [facility] odify By: [email or web address] Rach r DateTime : 06/23/20 18 02:45:00 PM Not Available Not Available Not Available Vitamin D2 1,250 mcg (50,000 unit) capsule take 1 capsule by oral route every week 11/24 completed Prescrib ed Elsewher e: No Locat ion: [facility] odify By: seema Loyd r DateTime : 09/16/19 16 01:22:56 PM Not Available Not Available Not Available active Not Available Not Avai lable Not Available M[employer]IC-PNV-DH A 28 mg iron-1 mg-200 mg capsule take 1 capsule by oral route every day 02/05 completed Prescrib ed Elsewher e: No Locat ion: [facility] odify By: laurel cat DateTime : 12/13/19 18 11:10:03 AM Not Available Not Available Not Available Vitals Date Recorded Body weight Systolic And Diastolic Provider Name and Address Organization Details Last Updated DateTime 03/06/2025 24024.26163 g 127/81 mm[Hg] Sofía Mendoza [facility] 03/06/2025 17:17:21 Social History Question Answer Notes LastModified by Organizat ion Details LastModified Time Tobacco Smoking Status Former Smoker Sondra partida, [facility] 09/18/2024 19:15:23 Do You Have An [...] Or The Highest Degree You Have Received? [id number] Information not available 12/11/2021 Are There Any [...] other forms of tobacco or nicotine? Yes [email or web address] Information not available 09/18/2024 What is your level of alcohol consumption? None Information not available 12/11/2021 Are you able to walk independently without assistance or assistive devices? [email or web address] Information not available 12/11/2021 Are you able to care for yourself independently? 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 No [email or web address] Information not available 03/26/2022 Do you or have you ever used e-cigarettes or vape? Former user of electronic cigarettes [email or web address] Information not available 09/18/2024 What is your exercise level? Occasional Information not available 12/11/2021 Mental Status Question Answer Note LastModified by Organization D etails LastModified Time Do you feel stressed (tense, restless, nervous, or anxious, or unable to sleep at night)? [id number] Information not available 12/11/2021 Family History Relationship Description Onset Age of this Age Resolved Age Notes LastModified by Organization Details LastModified Time Mother Cyst of ovary [email or web address] Not available 2021 16:19:55 Notes:07/19/2021 Cancer risk [...] ICD10 Code Diagnosis IMO Codes Diagnosis Note [id number] MURRAY MARTINEZ MD [address] [address] [place] [address] 02/05/2025 16:38:48 02/05/2025 17:24:51 care status 666251008 Z34.83 59290025 -continue PNV [id number] MD Mati MARTINEZ [address] [place] [address] 02/18/2025 16:25:20 02/18/2025 17:32:44 Anxiety 64793018 F41.9 - mood stable Gestation period, 35 weeks 52689606 Z3A.35 4114635 - continue PNV [id number] MURRAY MARTINEZ MD [address] [address] [place] [address] 02/18/2025 16:25:39 02/18/2025 17:20:49 care status 598400668 O36.5930 Z3A.35 246614 -continue PNV [id number] MD [place] [address] [place] [address] 02/27/2025 13:57:33 02/27/2025 14:37:57 Anxiety 83751478 F41.9 - mood stable Gestation period, 37 weeks 06368019 Z3A.37 3456976 - continue PNV [id number] MURRAY MARTINEZ MD [place] [address] [address] 03/06/2025 16:48:59 03/07/2025 09:00:54 Anxiety 70451578 F41.9 - mood stable Gestation period, 38 weeks 76246624 Z3A.38 2020501 - continue PNV Health Concerns Section Related Observation LastModified by Organization Detai ls LastModified Time None Recorded Concern Status LastModified by Organization Details LastModified Time None Recorded Payers Encounter Date Sequence Insurance Name Policy Number Policy Florez Covered Member ID Florez Member ID Guarantor Name 03/06/2025 1 [facility] ON OR AFTER 12/25/20 (MEDICAID REPLACEMENT - HMO) Catrachita Cerna [id number] Catrachita Cerna Notes Date Note Type Note Provider Name and Address Organization Details Recorded Time 03/06/2025 text/html Generic HPI TemplateReported by Patient MURRAY MARTINEZ MD [address], [place], [address], [facility] 03/06/2025 17:35:40 OBGyn Episode Ob Episode Information Episode Created Date Number of Fetuses Patient Bloodtype Patient rh Status Prepregnancy Weight lbs Domestic Partner Domestic Partner Phone Father Name Disintegrator Status 09/19/19 25 1 A Positive 132 [address] Krishan CLOSED Fetus Data First Name Last Name Admitted to NICU Weight (g) Sex Living Outcome Pediatric Complications Fetus ID Race Codes Race Delivery Type 3430.28 95 M true Full Term [id number] Vaginal Delivery Problems Problem Notes Problem Name Start Date End Date Resolution Snomed Code Note Unwanted fertility 5 325551637 salpingectomycon sents signed at 32 weeks History of hernia repair 63797260488227 Human papilloma virus infection 550289602 Precipitate labor 5 39558647 Cervical intraepithelial neoplasia grade 1 164486088 2021 History of abnormal cervical Papanicolaou smear 014298432 3 hgsil hpv+03/26/2022 ascus +hpv07/21/2021 lgsil hpv high risk hpv 16 neg std 11/24/2017 neg pap neg std10/21/2016 ascus hpv high risk hpv 16 Anxiety 97932206 doing well , has been off meds [...] Latest Days Gestation 10/30/19 25 19 1 Pre- Flowsheet Flowsheet Date 09/18/2024 Cabrera Score Blood Edema Fundus Height Fundus Units Glucose Ketones Leukocytes Nitrite Labor Signs Protein Cervic Dilation Cervic Effacement Cervic Station neg none none trace Type Weight in lbs Pre/Post Dialysis Refused Weight 132.939925618648 BP Diastolic BP Location Tested BP Systolic [...] Type Weight in lbs Pre/Post Dialysis Refused 139.197357374232 BP Diastolic BP Location Tested BP Systolic [...] Type Weight in lbs Pre/Post Dialysis Refused 143.235874946384 BP Diastolic BP Location Tested BP Systolic [...] Weight in lbs Pre/Post Dialysis Refused Weight 149.48790531228 BP Diastolic BP Location Tested BP Systolic [...] Weight in lbs Pre/Post Dialysis Refused Weight 157.808426369519 BP Diastolic BP Location Tested BP Systolic [...] Type Weight in lbs Pre/Post Dialysis Refused 159.184738004848 BP Diastolic BP Location Tested BP Systolic [...] Weight in lbs Pre/Post Dialysis Refused Weight 163.936789170036 BP Diastolic BP Location Tested BP Systolic [...] Weight in lbs Pre/Post Dialysis Refused Weight 167.733170607404 BP Diastolic BP Location Tested BP Systolic [...] Weight in lbs Pre/Post Dialysis Refused Weight 167.565210658746 BP Diastolic BP Location Tested BP Systolic [...] Weight in lbs Pre/Post Dialysis Refused Weight 173.890236940553 BP Diastolic BP Location Tested BP Systolic [...] Type Weight in lbs Pre/Post Dialysis Refused 174.77418589783 BP Diastolic BP Location Tested BP Systolic [...] Type Weight in lbs Pre/Post Dialysis Refused 176.772323117411 BP Diastolic BP Location Tested BP Systolic [...]
--- OUTSIDE RECORDS SUMMARY | 2025-05-27 00:30 | XMS_ITS | Clinical Summary ---
Author Organization [facility] Address [address] [place] [address] Care Team Providers Care Lead Caregiver Name Role Phone Unavailable Primary Care Provider Unavailabl e Source Comments [facility],non-owned Affiliates and Associated Physician Practices is amultiple site organization consisting of ambulatory clinics and hospital sitesin [place], [place], [place] and [place]. This disclosure is being madepursuant to the Care Everywhere program and may not contain all information available regarding this patient. Last updated 18.[facility] Active Problems Problem Noted Date Diagnosed Date Supervision of high risk in [facility] 11/06/2015 Club foot of fetus 11/06/2015 Social History Tobacco Use Types Packs/Day Years Used Date Smoking Tobacco: Never Assessed Comments No Sex and Gender Information Value Date Recorded Sex Assigned at Not on file Legal Sex Female 12:40 PM CDT Gender Identity Not on file Sexual Orientation Not on file Plan of Treatment Health Maintenance Due Date Last Done Comments HIV SCREENING 02/10/2003 HEPATITIS C SCREENING 02/06/2006 DTAP/TDAP/TD VACCINES (1 - Tdap) 02/10/2007 HEPATITIS B VACCINE (1 of 3 - 19+ 3-dose series) 02/10/2007 PAP SMEAR 02/10/2009 HPV VACCINE (1 - 3-dose SCDM series) 02/10/2015 Cervical Cancer Screening 02/10/2018 PAP with HPV 02/10/2018 DEPRESSION SCREENING 06/27/2024 COVID-19 VACCINE (1 - 2024-2 6 season) 2025 INFLUENZA VACCINE (#1) 2025 ZOSTER VACCINE (1 of 2) 02/10/2038 HIB VACCINE Aged Out No longer eligi ble based on patient's age to complete this topic MENINGOCOCCAL (Group B) VACC INE SHARED DECISION-MAKING Aged Out No longer eligibl e based on patient's age to complete this topic MENINGOCOCCAL GROUPS A/C/Y/W VACCINE Aged Out No longer eligible b ased on patient's age to complete this topic PNEUMOCOCCAL VACCINE Aged Out No long er eligible based on patient's age to complete this topic Insurance
--- OUTSIDE RECORDS SUMMARY | 2025-05-27 00:30 | XMS_ITS | Continuity of Care Document ---
Author Organization [facility] Address [address] [place] [address] Care Team Providers Care Client Service Administrator Name Role Phone RITU MCGUIRE Primary Care Provider Assessment No assessment recorded. Plan of Treatment Reminders Order Date Submit Date Provider Last Modified By Organization Details Last Modified Time Details Appointments SURG Salpingec inkolai 2024 01:00P Sharon MARTINEZ MD Not available [...] Not Available [facility] [address], [place], [address], 09/24/2024 14:19:42 09/25/19 25 09/24/2024 [UNIT Y] ANEUP LOIDY NIPT 22Q11.2 microdeletio n LOW RISK <1 in 10,000 normal Not Available [facility] [address], [place], [address], 09/24/2024 14:19:42 09/25/19 25 09/24/2024 [UNIT Y] ANEUP LOIDY NIPT sex chromosome aneuploidy NOT DETECT ED normal Not Available [facility] [address], [place], [address], 09/24/2024 14:19:42 09/25/19 25 09/24/2024 [UNIT Y] ANEUP LOIDY NIPT monosomy X LOW RISK <1 in 10,000 normal Not Available [facility] [address], [place], [address], 09/24/2024 14:19:42 09/25/19 25 09/24/2024 [UNIT Y] ANEUP LOIDY NIPT trisomy 13 LOW RISK <1 in 10,000 normal Not Available [facility] [address], [place], [address], 09/24/2024 14:19:42 09/25/19 25 09/24/2024 [UNIT Y] ANEUP LOIDY NIPT trisomy 18 LOW RISK <1 in 10,000 normal Not Available [facility] [address], [place], [address], 09/24/2024 14:19:42 09/25/19 25 09/24/2024 [UNIT Y] ANEUP LOIDY NIPT trisomy 21 LOW RISK <1 in 10,000 normal Not Available [facility] [address], [place], [address], 09/24/2024 14:19:42 09/25/19 25 09/24/2024 [UNIT Y] ANEUP LOIDY NIPT sex MALE normal Not Available [facility] [address], [place], [address], 09/24/2024 14:19:42 09/25/19 25 09/24/2024 [UNIT Y] ANEUP LOIDY NIPT gestation SINGLE TON normal Not Available [facility] [address], [place], [address], 09/24/2024 14:19:42 09/25/19 25 09/24/2024 [UNIT Y] ANEUP LORAY NIPT for detailed report, see pdf See PDF normal Not Available [facility] [address], [place], [address], 09/24/2024 14:19:42 09/27/19 25 09/26/2024 [UNIT Y] JANET Danielle sickle cell disease/beta -thalassemia /hemoglobino pathies carrier screen NEGATI VE normal Not Available [facility] [address], [place], [address], 09/26/2024 23:58:29 09/27/19 25 09/26/2024 [UNIT Y] JANET Danielle alpha-thalas semia carrier screen NEGATI VE normal Not Available [facility] [address], [place], [address], 09/26/2024 23:58:29 09/27/19 25 09/26/2024 [UNIT Y] JANET Danielle cystic fibrosis carrier screen NEGATI VE normal Not Available [facility] [address], [place], [address], 09/26/2024 23:58:29 09/27/19 25 09/26/2024 [UNIT Y] JANET Danielle spinal muscular atrophy carrier screen NEGATI VE 2 SMN1 copies , SNP not presen t normal Not Available [facility] [address], [place], [address], 09/26/2024 23:58:29 09/27/19 25 09/26/2024 [UNIT Y] JANET Danielle for detailed report, see pdf See PDF normal Not Available [facility] [address], [place], [address], 09/26/2024 23:58:29 09/19/19 25 09/18/2024 CBC W/DIF F WBC 7.0 10'3/ uL 3.5-10 .5 Not Available [facility] (Lab) [address], [place], [address], 09/19/2024 19:12:48 09/19/1909/18/2024 CBC W/DIF F RBC 4.17 10'6/ uL (based on docume nted legal sex) 3.80-5 .20 Not Available [facility] (Lab) [address], [place], [address], 09/19/2024 19:12:48 09/19/19 25 09/18/2024 CBC W/DIF F HGB 13.4 g/dL (based on docume nted legal sex) 11.6-1 5.4 Not Available [facility] (Lab) [address], [place], [address], 09/19/2024 19:12:48 09/19/1909/18/2024 CBC W/DIF F HCT 38.5 % (based on docume nted legal sex) 34.0-4 5.0 Not Available [facility] (Lab) [address], [place], [address], 09/19/2024 19:12:48 09/19/1909/18/2024 CBC W/DIF F MCV 92.3 fL 80.0-9 9.0 Not Available [facility] (Lab) [address], [place], [address], 09/19/2024 19:12:48 09/19/1909/18/2024 CBC W/DIF F MCH 32.1 pg 27.0-3 4.0 Not Available [facility] (Lab) [address], [place], [address], 09/19/2024 19:12:48 09/19/19 25 09/18/2024 CBC W/DIF F MCHC 34.8 g/dL 32.0-3 5.5 Not Available [facility] (Lab) [address] [place], [address], 09/19/2024 19:12:48 09/19/19 25 09/18/2024 CBC W/DIF F RDW 13.0 % 11.0-1 5.0 Not Available [facility] (Lab) [address] [facility], [place], [address], 09/19/2024 19:12:48 09/19/19 25 09/18/2024 CBC W/DIF F plt 243 10'3/ uL 150-40 0 Not Available [facility] (Lab) [address] [facility] [facility], [place], [address], 09/19/2024 19:12:48 09/19/19 25 09/18/2024 CBC W/DIF F MPV 10.2 fL 8.8-12 .1 Not Available [facility] (Lab) [address] [facility] [facility], [place], [address], 09/19/2024 19:12:48 09/19/19 25 09/18/2024 CBC W/DIF F neutrophils 64.4 % 34.0-7 3.0 Not Available [facility] (Lab) [address] [facility], [place], [address], 09/19/2024 19:12:48 09/19/19 25 09/18/2024 CBC W/DIF F lymphocytes 26.9 % 15.0-5 0.0 Not Available [facility] (Lab) [address], [place], [address], 09/19/2024 19:12:48 09/19/19 25 09/18/2024 CBC W/DIF F monocytes 6.7 % 1.0-15 .0 Not Available [facility] (Lab) [address], [place], [address], 09/19/2024 19:12:48 09/19/19 25 09/18/2024 CBC W/DIF F eosinophils 1.1 % 0.0-8. 0 Not Available [facility] (Lab) [address] [facility], [place], [address], 09/19/2024 19:12:48 09/19/19 25 09/18/2024 CBC W/DIF F basophils 0.6 % 0.0-2. 0 Not Available [facility] (Lab) [address] [facility] [facility], [place], [address], 09/19/2024 19:12:48 09/19/19 25 09/18/2024 CBC W/DIF [...] separ ately if prese nt. Not Available [facility] (Lab) [address], [place], [address], 09/19/2024 19:12:48 09/19/19 25 09/18/2024 CBC W/DIF F absolute neutrophils 4.5 10'3/ uL 1.5-8. 0 Not Available [facility] (Lab) [address] [facility], [place], [address], 09/19/2024 19:12:48 09/19/19 25 09/18/2024 CBC W/DIF F absolute lymphocytes 1.9 10'3/ uL 1.0-4. 0 Not Available [facility] (Lab) [address], [place], [address], 09/19/2024 19:12:48 09/19/19 25 09/18/2024 CBC W/DIF F absolute monocytes 0.5 10'3/ uL 0.2-1. 0 Not Available [facility] (Lab) [address], [place], [address], 09/19/2024 19:12:48 09/19/19 25 09/18/2024 CBC W/DIF F absolute eosinophils 0.1 10'3/ uL 0.0-0. 6 Not Available [facility] (Lab) [address], [place], [address], 09/19/2024 19:12:48 09/19/1909/18/2024 CBC W/DIF F absolute basophils 0.0 10'3/ uL 0.0-0. 3 Not Available [facility] (Lab) [address], [place], [address], 09/19/2024 19:12:48 09/19/1909/18/2024 CBC W/DIF F absolute [...] and book. nm.or g/gen derx Not Available [facility] (Lab) [address], [place], [address], 09/19/2024 19:12:48 09/19/1909/18/2024 HIV 1/2 ANTIG EN/AN TIBOD Y, REFLE X CONFI RMATI ON HIV antigen/anti body Nonrea ctive nonrea ctive HIV-1 antig en and HIV-1 /HIV- 2 antib odies were not detec pratima. No labor atory evide nce of HIV infec tion. Not Available [facility] (Lab) [address], [place], [address], 09/19/2024 19:12:49 09/19/1909/18/2024 HEPAT ITIS B SURFA CE ANTIG EN hepatitis B surface antigen Non-re active non-re active This assay was perfo rmed using [employer] ratio n reage nts and test kits. Value s obtai nicolette with other assay metho ds or kits canno t be used inter campos eably . Not Available [facility] (Lab) [address], [place], [address], 09/19/2024 19:12:49 09/19/19 25 09/18/2024 HEPAT ITIS C ANTIB ILA SCREE N, REFLE X TO CONFI RMATI ON hepatitis C antibody Non-re active non-re active Antib odies to HCV Not Detec pratima, does not exclu de the possi bilit y of expos ure to HCV. Not Available [facility] (Lab) [address], [place], [address], 09/19/2024 19:12:50 09/19/19 25 09/18/2024 RUBEL LA IGG ANTIB ILA, QUANT rubella antibodies, IgG Reacti ve reacti ve Not Available [facility] (Lab) [address], [place], [address], 09/19/2024 19:12:50 09/19/19 25 09/18/2024 RUBEL LA IGG ANTIB ILA, QUANT rubella antibodies, IgG quant 54.0 IU/mL >=10 Non-r eacti ve (Non- Immun e) <10 IU/mL React phuong (Immu ne) > or = 10 IU/mL Not Available [facility] (Lab) [address], [place], [address], 09/19/2024 19:12:50 09/19/1909/18/2024 TYPE/ RH/SC REEN ABO/Rh type A POS Not Available [facility] (Lab) [address], [place], [address], 09/19/2024 19:12:51 09/19/19 25 09/18/2024 TYPE/ RH/SC REEN antibody screen NEG Not Available [facility] (Lab) [address], [place], [address], 09/19/2024 19:12:51 09/19/19 25 09/18/2024 TYPE/ RH/SC REEN exp date 2024 23:59 Not Available [facility] (Lab) [address], [place], [address], 09/19/2024 19:12:51 09/19/19 25 09/18/2024 RPR SCREE N, REFLE X TITER /CONF IRMAT ION RPR qualitative Nonrea ctive nonrea ctive Not Available [facility] (Lab) [address], [place], [address], 09/19/2024 19:12:51 09/19/1909/18/2024 HEMOG LOBIN A1C hemoglobin [...] >8.0% Actio n sugge sted Not Available [facility] (Lab) [address], [place], [address], 09/19/2024 19:12:52 09/19/1909/18/2024 CULTU RE: URINE result report SEE RESULT S BELOW Test: Cultu re: Urine Speci men Sourc e: Urine - Clean Catch Speci men Type: Urine Speci men Date: 2024 1302 Resul t Date: 2024 Resul t Statu s: Final resul t Abnor mal: No Resul ting Lab: [facility] [address] [facility] [address] Tel: CULTU RE ----- ----- ----- --- No growt h in 1 day (dete ction level of 10,00 0 colon ies / ml.) Not Available [facility] (Lab) [address], [place], [address], 09/19/2024 22:31:54 09/19/19 25 09/18/2024 drug scree n, urine Amphetamines : negati ve Not Available [facility] [address], [place], [address], 09/18/2024 12:58:08 09/19/19 25 09/18/2024 drug scree n, urine Cannabinoids : negati ve Not Available [facility] [address], [place], [address], 09/18/2024 12:58:08 09/19/19 25 09/18/2024 drug scree n, urine Cocaine: negati ve Not Available [facility] [address], [place], [address], 09/18/2024 12:58:08 09/19/19 25 09/18/2024 drug scree n, urine Opiates: negati ve Not Available [facility] [address], [place], [address], 09/18/2024 12:58:08 09/19/19 25 09/18/2024 drug scree n, urine Phenocyclidi ne: negati ve Not Available [facility] [address], [place], [address], 09/18/2024 12:58:08 09/19/19 25 09/18/2024 drug scree n, urine Barbiturates : negati ve Not Available [facility] [address], [place], [address], 09/18/2024 12:58:08 09/19/19 25 09/18/2024 drug scree n, urine Benzodiazepi rut: negati ve Not Available [facility] [address], [place], [address], 09/18/2024 12:58:08 09/19/19 25 09/18/2024 drug scree n, urine Ethanol: negati ve Not Available [facility] [address], [place], [address], 09/18/2024 12:58:08 09/19/19 25 09/18/2024 drug scree n, urine Hallucinogen s: negati ve Not Available [facility] [address], [place], [address], 09/18/2024 12:58:08 09/19/19 25 09/18/2024 drug scree n, urine Inhalants: negati ve Not Available [facility] [address], [place], [address], 09/18/2024 12:58:08 09/19/19 25 09/18/2024 drug scree n, urine Anabolic Steroids: negati ve Not Available [facility] [address], [place], [address], 09/18/2024 12:58:08 09/19/19 25 09/18/2024 drug scree n, urine Other: negati ve Not Available [facility] [address], [place], [address], 09/18/2024 12:58:08 12/25/19 25 12/24/2024 HEMOG LOBIN (HGB) HGB 11.2 g/dL (based on docume nted legal sex) 11.6-1 5.4 low Not Available [facility] (Lab) [address], [place], [address], 12/25/2024 11:30:32 12/25/19 25 12/24/2024 HEMAT OCRIT (HCT) HCT 34.3 % (based on docume nted legal sex) 34.0-4 5.0 Not Available [facility] (Lab) [address] [facility], [place], [address], 12/25/2024 11:30:33 12/25/19 25 12/24/2024 GTT - GESTA KULWINDER L LIO Danielle, ACOG OB glucose, 1 hour screen 84 mg/dL 70-135 Not Available [facility] (Lab) [address] [facility], [place], [address], 12/25/2024 11:30:33 12/25/19 25 12/24/2024 HIV 1/2 ANTIG EN/AN TIBOD Y, REFLE X CONFI RMATI ON HIV antigen/anti body Nonrea ctive nonrea ctive HIV-1 antig en and HIV-1 /HIV- 2 antib odies were not detec pratima. No labor atory evide nce of HIV infec tion. Not Available [facility] (Lab) [address], [place], [address], 12/25/2024 11:30:34 12/25/19 25 12/24/2024 RPR SCREE N, REFLE X TITER /CONF IRMAT ION RPR qualitative Nonrea ctive nonrea ctive Not Available [facility] (Lab) [address] [facility], [place], [address], 12/25/2024 11:30:35 02/19/20 25 02/18/2025 CULTU RE: [...] t Abnor mal: No Resul ting Lab: [facility] [address] [facility] [address] [facility] [address] Tel: CULTU RE ----- ----- ----- --- No Group B strep isola pratima at 2 days (lucian ctive broth enhan cemen t) Not Available [facility] (Lab) [address], [place], [address], 02/21/2025 15:16:47 09/19/19 25 09/18/2024 US, obste tric, nucha l trans lucen cy No observ ation record ed. [email or web address] [address], [place], [address], 09/18/2024 09:39:19 09/19/1909/18/2024 US, obste tric, 1st trime ster No observ ation record ed. [email or web address] [place] [address], [place], [address], 09/18/2024 09:39:29 09/19/19 25 09/18/2024 US, obste tric, follo w-up No observ ation record ed. [email or web address] [address], [place], [address], 09/19/2024 22:38:18 10/30/19 25 10/29/2024 US, obste tric, 2nd or 3rd trime ster No observ ation record ed. [email or web address] [address], [place], [address], 10/29/2024 18:43:01 10/30/19 25 10/29/2024 US, obste tric, follo w-up No observ ation record ed. [address], [place], [address], 11/06/2024 11:15:29 11/27/19 25 11/26/2024 US, obste tric, follo w-up No observ ation record ed. [email or web address] [place] [address], [place], [address], 11/26/2024 18:39:21 11/27/19 25 11/26/2024 US, obste tric, follo w-up No observ ation record ed. [email or web address] [address], [place], [address], 12/04/2024 16:09:37 12/25/19 25 12/24/2024 US, obste tric, follo w-up No observ ation record ed. [email or web address] [address], [place], [address], 12/24/2024 18:47:52 12/25/19 25 12/24/2024 US, obste tric, follo w-up No observ ation record ed. [address], [place], [address], 12/24/2024 17:55:03 01/22/20 25 01/21/2025 US, obste tric, follo w-up No observ ation record ed. [email or web address] [address], [place], [address], 01/21/2025 18:26:14 01/22/20 25 01/21/2025 US, obste tric, follo w-up No observ ation record ed. [email or web address] [address], [place], [address], 01/21/2025 23:49:40 02/19/20 25 02/18/2025 US, obste tric, follo w-up No observ ation record ed. [email or web address] [place] [address], [place], [address], 02/18/2025 18:26:30 02/19/20 25 02/18/2025 US, obste tric, follo w-up No observ ation record ed. [email or web address] [address], [place], [address], 02/18/2025 17:29:39 Result Notes None recorded. Problems Name Problem SNOMED Code Status Onset Date Resolution Date Notes Provider Name and Address Organization Details Recorded Time Anxiety in pregnanc y 6664050969 9109 Active off celexa for 3 years, stable Susannah partida, [facility] 2 13:40:28 Anxiety in pregnanc y 7995745774 9109 Completed off celexa for 3 years, stable Susannah partida, [facility] 2 13:40:28 Ultrasou nd scan abnormal 448614214 Completed EIF- discusse d, reassure d Susannah partida, [facility] 2 13:40:28 History of abnormal cervical Papanico laou smear 611662839 Completed 02/17/20 23 hgsil hpv+ 03/26/20 22 ascus +hpv 2 lgsil hpv high risk hpv 16 neg std 8 neg pap neg std 7 ascus hpv high risk hpv 16 Sondra partida, [facility] 5 13:02:02 Human papillom a virus infectio n 294641207 Completed Sondra partida, [facility] 5 13:02:09 Cervical intraepi thelial neoplasi a grade 1 139223637 Completed 2021 Sondra partida, [facility] 5 13:02:39 Anxiety 47672592 Completed doing well, has been off meds Chichi Camilo, CNSharon [address], [place], [address], [facility] 5 08:42:52 History of hernia repair 4858301915 9109 Completed Sondra [facility], [facility] 5 13:03:17 Syphilis test finding 442960842 Completed 201507/20/2021 Encntr screen for infectio ns w sexl mode of transmis s;Record ed Elsewher e: No Locat ion: [facility] S ource: EHR Advertising Sales Agent roney: N Practi ce ID: 0001 Matty lable Time: 01:00:00 PM Ale partida, [facility] 2 15:34:17 Infectio n screenin g Completed 201507/20/2021 Encounte r for screenin g for oth infec/pa rastc diseases ;Recorde d Elsewher e: No Locat ion: [facility] S ource: EHR Advertising Sales Agent roney: N Practi ce ID: 0001 Matty lable Time: 01:00:00 PM Ale Bradley [facility], [facility] 2 15:32:30 Screenin g for malignan t neoplasm of cervix Completed 201507/20/2021 Encounte r for screenin g for malignan t neoplasm of cervix;R ecorded Elsewher e: No Locat ion: [facility] S ource: EHR Advertising Sales Agent roney: N Practi ce ID: 0001 Matty lable Time: 01:00:00 PM Ale partida, [facility] 2 15:32:20 Pregnanc y, childbir th and puerperi um finding Completed 201507/20/2021 Encntr for suprvsn of normal first preg, second trimeste r;Practi ce ID: 0001 Ale Bradley [facility], [facility] [address] 15:34:[address] Concept Completed 201507/20/2021 Maternal care for oth abnormal ity and damage, unsp;Pra ctice ID: 0001 Ale partida, [facility] 2 15:32:23 Gestatio n period, 25 weeks [id number] Completed 201507/20/2021 25 weeks gestatio n of pregnanc y;Practi ce ID: 0001 Ale partida, [facility] 2 15:35:03 Gestatio n period, 34 weeks 40555148 Completed 201507/20/2021 34 weeks gestatio n of pregnanc y;Practi ce ID: 0001 Ale partida, [facility] 2 15:32:17 Gestatio n period, 36 weeks [id number] Completed 201507/20/2021 36 weeks gestatio n of pregnanc y;Practi ce ID: 0001 Ale partida, [facility] 2 15:34:27 Lacerati on of female perineum Completed 201507/20/2021 Second degree perineal lacerati on during delivery ;Practic e ID: 0001 Ale partida, [facility] 2 15:32:25 Gestatio n period, 39 weeks 66709633 Completed 201507/20/2021 39 weeks gestatio n of pregnanc y;Practi ce ID: 0001 Ale partida, [facility] 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 [address] 15:32:[address] Concept Completed 201607/20/2021 Encntr for general adult medical exam w/o abnormal findings ;Recorde d Elsewher e: No Locat ion: [facility] S ource: EHR Advertising Sales Agent roney: N Jasti ce ID: [id number] Matty lable Time: 03:30:00 PM Ale partida [facility] 2 15:32:43 Procedur e by method Completed 201607/20/2021 Encounte r for other general counseli ng and advice on contrace ption;Re corded Elsewher e: No Locat ion: [facility] S ource: EHR Advertising Sales Agent roney: N Jasti ce ID: 0001 Matty lable Time: 03:30:00 PM Ale partida [facility] 2 15:33:58 Human papillom avirus deoxyrib onucleic acid detected , high risk on cervical specimen [id number] Completed 201607/20/2021 Cervical high risk HPV DNA test positive ;Recorde d Elsewher e: No Locat ion: [facility] S ource: EHR Advertising Sales Agent roney: N Jasti ce ID: [id number] Matty lable Time: 01:44:32 PM Ale partida [facility] 2 15:35:01 Atypical squamous cells of undeterm ined signific ance on cervical Papanico laou smear [id number] Completed 201607/20/2021 Atyp squam cell of undet signfc cyto smr crvx (ASC-US) ;Practic e ID: 0001 Ale partida [facility] 2 15:34:19 Pregnanc y test negative 982309161 Completed 201607/20/2021 Encounte r for pregnanc y test, result negative ;Practic e ID: 0001 Ale partida [facility] 2 15:32:38 Low grade squamous intraepi thelial lesion on cervical Papanico laou smear [id number] 9105 Completed 201607/20/2021 Low grade intrepit h lesion cyto smr crvx (LGSIL); Practice ID: 0001 Ale partida [facility] 2 15:34:32 Pregnanc y detectio n examinat ion Completed 201707/20/2021 Encounte r for pregnanc y test, result positive ;Practic e ID: 0001 Ale partida [facility] 2 15:35:05 Antenata l screenin g Completed 201707/20/2021 Encounte r for antenata l screenin g for uncertai n dates;Pr actice ID: 0001 Ale partida [facility] 2 15:32:28 Rubella screenin g status [id number] Completed 201707/20/2021 Encounte r for antenata l screenin g, unspecif ied;Flaquito rded Elsewher e: No Locat ion: Samira gibbs [facility] S ource: EHR Advertising Sales Agent orney: N Practi ce ID: 0001 Matty lable Time: 02:45:00 PM Ale partida [facility] 2 15:32:36 Antenata l screenin g for malforma tion Completed 201707/20/2021 Encounte r for antenata l screenin g for malforma tions;Pr actice ID: [id number] Ale partida [facility] 2 15:34:58 Uterine size for dates discrepa ncy Completed 201707/20/2021 Uterine size-twin e discrepa ncy, second trimeste r;Practi ce ID: 0001 Ale [facility], [facility] 2 15:32:21 Gestatio n period, 24 weeks [id number] Completed 201707/20/2021 24 weeks gestatio n of pregnanc y;Practi ce ID: 0001 Ale [place], [facility] 2 15:32:41 Normal pregnanc y in multigra daniela [id number] Completed 201707/20/2021 Encounte r for suprvsn of normal pregnanc y, third trimeste r;Practi ce ID: 0001 Ale [place], [facility] 2 15:34:20 Gestatio n period, 40 weeks [id number] Completed 201707/20/2021 40 weeks gestatio n of pregnanc y;Practi ce ID: 0001 Ale [place], [facility] 2 15:34:25 Single live from singleto n pregnanc y [id number] Completed 201707/20/2021 Single live ;Pr actice ID: 0001 Ale [place], [facility] 2 15:32:18 Precipit ate labor [id number] Completed 201707/20/2021 Precipit ate labor;Pr actice ID: 0001 Ale [place], [facility] 2 15:34:24 Pelvic and perineal pain [id number] Completed 201707/20/2021 Pelvic and perineal pain;Pra ctice ID: [id number] Ale Bradley helga, [facility] 2 15:32:40 Lochia finding Completed 201707/20/2021 Encounte r for routine postpart um follow-u p;Practi ce ID: [id number] Ale Bradley helga, [facility] 2 15:34:16 Cervicov aginal cytology : Low grade squamous intraepi thelial lesion 731368889 Active 2021 Juliana Santiago MD [address], [place], [address], [facility] 2 14:55:31 Atypical glandula r cells on cervical Papanico laou smear 525418229 Completed 2021 and LSIL. colpo done. Needs ECC and EMB followin g delivery . Susannahjose e gutierrez null, [facility] 2 13:40:28 Pregnanc y 54871138 Completed 202102/12/2022 Tracie Morenolibertad partida, [facility] 5 09:47:33 Abnormal cervical Papanico laou smear 820649381 Active 202402/17/20 23 hgsil hpv+ 03/26/20 22 ascus +hpv 2 lgsil hpv high risk hpv 16 neg std 8 neg pap neg std 7 ascus hpv high risk hpv 16 Sondra partida, [facility] 5 12:54:41 Pregnanc y 59777193 Completed 202404/09/2025 Tracie Mary [facility], [facility] 5 09:47:33 Unwanted fertilit y 304319501 Completed 2024 salpinge ctomy consents signed at 32 weeks MURRAY MARTINEZ MD [address], [place], [address], [facility] 5 15:17:44 Precipit ate labor 18932065 Completed 2024 Timi Gonzalez MD [address], [place], [address], [facility] 15:22:17 Problem Notes None recorded. Procedures Surgical History Date Name Laterality Status Provider Name and Address Organization Details Recorded Time 08/28/19 Date of Last Pap Smear completed Sondra Bazan [facility] 09/18/2024 12:53:55 06/23/20 23 Colposcopy completed Timi Gonzalez MD [address], [place], [address], [facility] 06/23/2023 18:38:15 06/23/20 23 Colposcopy completed Sheree Dumonter [facility] 08/27/2024 14:36:50 06/23/20 23 Colposcopy completed Аннаkatherin Stapleton [facility] 06/23/2023 11:05:42 03/26/20 22 Endometrial Biopsy completed Juliana Santiago MD [address], [place], [address], [facility] 03/26/2022 11:44:17 03/26/20 22 Colposcopy completed Sondra Bazan [facility] 09/18/2024 12:56:33 08/29/19 22 Colposcopy completed Juliana Santiago MD [address], [place], [address], [facility] 08/28/2021 14:57:14 01/04/20 17 Colposcopy completed Sondra Bazan [facility] 01/18/2022 15:35:17 06/27/19 07 termination of completed Sondra Bazan [facility] 01/18/2022 15:38:40 06/27/18 91 hernia repair completed Ale Bradley [facility] 07/20/2021 16:20:44 Imaging Results None [...] Prescrib ed Elsewher e: No Locat ion: [facility] odify By: seema Loyd r DateTime : 04/18/20 17 09:50:56 AM Not Available Not Available Not Available citalopra m 20 mg tablet TAKE 1 TABLET BY ORAL ROUTE EVERY DAY 07/21 completed Not Available Not Available Not Available Loestrin 07/16 (21) 1 mg-20 mcg tablet take 1 tablet by oral route every day 07/20 completed Prescrib ed Elsewher e: No Locat ion: [facility] odify By: [email or web address] Rach r DateTime : 06/23/20 18 02:45:00 PM Not Available Not Available Not Available Vitamin D2 1,250 mcg (50,000 unit) capsule take 1 capsule by oral route every week 11/24 completed Prescrib ed Elsewher e: No Locat ion: [facility] odify By: seema Loyd r DateTime : 09/16/19 16 01:22:56 PM Not Available Not Available Not Available active Not Available Not Avai lable Not Available P[employer]-PNV-DH A 28 mg iron-1 mg-200 mg capsule take 1 capsule by oral route every day 02/05 completed Prescrib ed Elsewher e: No Locat ion: [facility] odify By: laurel cat DateTime : 12/13/19 18 11:10:03 AM Not Available Not Available Not Available Vitals Date Recorded Body height Body mass index (BMI) Body weight Systolic And Diastolic Provider Name and Address Organization Details Last Updated DateTime 02/27/2025 152.4 cm 33.8 kg/m2 49640.48 g 115/79 mm[Hg] Sheree Wasserman [facility] 02/27/2025 14:04:04 Social History Question Answer Notes LastModified by Organizat ion Details LastModified Time Tobacco Smoking Status Former Smoker Sondra partida, [facility] 09/18/2024 19:15:23 Do You Have [...] Or The Highest Degree You Have Received? [id number] Information not available 12/11/2021 Are There Any [...] Have Difficulty Walking Or Climbing Stairs? No [email or web address] Information not available 03/26/2022 Sex: Unknown Functional Status Question Answer Note LastModified by Organizat ion Details LastModified Time Do you use any illicit or recreational drugs? No Information not available 12/11/2021 Do you or have you ever used any other forms of tobacco or nicotine? Yes Information not available 09/18/2024 What is your level of alcohol consumption? None Information not available 12/11/2021 Are you able to walk independently without assistance or assistive devices? [email or web address] Information not available 12/11/2021 Are you able to care for yourself independently? 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 No [email or web address] Information not available 03/26/2022 Do you or have you ever used e-cigarettes or vape? Former user of electronic cigarettes [email or web address] Information not available 09/18/2024 What is your exercise level? Occasional Information not available 12/11/2021 Mental Status Question Answer Note LastModified by Organization D etails LastModified Time Do you feel stressed (tense, restless, nervous, or anxious, or unable to sleep at night)? [id number] Information not available 12/11/2021 Family History Relationship Description Onset Age of this Age Resolved Age Notes LastModified by Organization Details LastModified Time Mother Cyst of ovary [email or web address] Not available 2021 16:19:55 Notes:07/19/2021 Cancer risk [...] ICD10 Code Diagnosis IMO Codes Diagnosis Note [id number] MURRAY MARTINEZ MD [place] [address],[place] [address] 02/05/2025 16:38:48 02/05/2025 17:24:51 care status 540613567 Z34.83 00448488 -continue PNV [id number] MURRAY MARTINEZ MD [place] [address] [place] [address] 02/18/2025 16:25:20 02/18/2025 17:32:44 Anxiety 15641622 F41.9 - mood stable Gestation period, 35 weeks 68990082 Z3A.35 5698883 - continue PNV [id number] MURRAY MARTINEZ MD [place] [address] [place] [address] 02/18/2025 16:25:39 02/18/2025 17:20:49 care status 209427482 O36.5930 Z3A.35 701739 -continue PNV [id number] MD Mati MARTINEZ [address] [address] 02/27/2025 13:57:33 02/27/2025 14:37:57 Anxiety 92010145 F41.9 - mood stable Gestation period, 37 weeks 93351643 Z3A.37 3780998 - continue PNV Health Concerns Section Related Observation LastModified by Organization Detai ls LastModified Time None Recorded Concern Status LastModified by Organization Details LastModified Time None Recorded Payers Encounter Date Sequence Insurance Name Policy Number Policy Florez Covered Member ID Florez Member ID Guarantor Name 02/27/2025 1 [facility] - DOS ON OR AFTER 20 (MEDICAID REPLACEMENT - HMO) Catrachita Cerna [id number] Catrachita Cerna Notes Date Note Type Note Provider Name and Address Organization Details Recorded Time 02/27/2025 text/html Generic HPI TemplateReported by Patient MURRAY MARTINEZ MD [address], [place], [address], [facility] 02/27/2025 14:30:36 OBGyn Episode Ob Episode Information Episode Created Date Number of Fetuses Patient Bloodtype Patient rh Status Prepregnancy Weight lbs Domestic Partner Domestic Partner Phone Father Name Manager Helpdesk Status 09/19/19 25 1 A Positive [address] Krishan CLOSED Fetus Data First Name Last Name Admitted to NICU Weight (g) Sex Living Outcome Pediatric Complications Fetus ID Race Codes Race Delivery Type 3430.28 95 M true Full Term [id number] Vaginal Delivery Problems Problem Notes Problem Name Start Date End Date Resolution Snomed Code Note Unwanted fertility 5 016832219 salpingectomycon sents signed at 32 weeks History of hernia repair 07980828039098 Human papilloma virus infection 459785682 Precipitate labor 5 04653218 Cervical intraepithelial neoplasia grade 1 839418113 2021 History of abnormal cervical Papanicolaou smear 278105368 3 hgsil hpv+03/26/2022 ascus +hpv07/21/2021 lgsil hpv high risk hpv 16 neg std 11/24/2017 neg pap neg std10/21/2016 ascus hpv high risk hpv 16 Anxiety 07353042 doing well , has been off meds [...] Weight in lbs Pre/Post Dialysis Refused Weight 132.852374429070 BP Diastolic BP Location Tested BP Systolic [...] Type Weight in lbs Pre/Post Dialysis Refused 139.210502208012 BP Diastolic BP Location Tested BP Systolic [...] Type Weight in lbs Pre/Post Dialysis Refused 143.425938216062 BP Diastolic BP Location Tested BP Systolic [...] Weight in lbs Pre/Post Dialysis Refused Weight 149.63195509551 BP Diastolic BP Location Tested BP Systolic [...] Weight in lbs Pre/Post Dialysis Refused Weight 157.648474258288 BP Diastolic BP Location Tested BP Systolic [...] Type Weight in lbs Pre/Post Dialysis Refused 159.564274724176 BP Diastolic BP Location Tested BP Systolic [...] Weight in lbs Pre/Post Dialysis Refused Weight 163.329857777419 BP Diastolic BP Location Tested BP Systolic [...] Weight in lbs Pre/Post Dialysis Refused Weight 167.196267750428 BP Diastolic BP Location Tested BP Systolic [...] Weight in lbs Pre/Post Dialysis Refused Weight 167.711601345425 BP Diastolic BP Location Tested BP Systolic [...] Weight in lbs Pre/Post Dialysis Refused Weight 173.094394043028 BP Diastolic BP Location Tested BP Systolic [...] Type Weight in lbs Pre/Post Dialysis Refused 174.57848234530 BP Diastolic BP Location Tested BP Systolic [...] Type Weight in lbs Pre/Post Dialysis Refused 176.585201721693 BP Diastolic BP Location Tested BP Systolic [...] Post Complications Tubal Sterilization Discharge Date Comments 09/24/202 5 40 Discharge Information Feeding Method Contraceptive Method Maternal HG B and HCT Levels
--- OUTSIDE RECORDS SUMMARY | 2025-05-27 00:30 | XMS_ITS | Continuity of Care Document ---
Author Organization [facility] Address [address] [place] [address] Care Team Providers Care Tafe Registrar Name Role Phone RITU MCGUIRE Primary Care [...] Not Available [facility] [address], [place], [address], 09/24/2024 14:19:42 09/25/19 25 09/24/2024 [UNIT Y] ANEUP LOIDY NIPT 22Q11.2 microdeletio n LOW RISK <1 in 10,000 normal Not Available [facility] [address], [place], [address], 09/24/2024 14:19:42 09/25/19 25 09/24/2024 [UNIT Y] ANEUP LOIDY NIPT sex chromosome aneuploidy NOT DETECT ED normal Not Available [facility] [address], [place], [address], 09/24/2024 14:19:42 09/25/19 25 09/24/2024 [UNIT Y] ANEUP LOIDY NIPT monosomy X LOW RISK <1 in 10,000 normal Not Available [facility] [address], [place], [address], 09/24/2024 14:19:42 09/25/19 25 09/24/2024 [UNIT Y] ANEUP LOIDY NIPT trisomy 13 LOW RISK <1 in 10,000 normal Not Available [facility] [address], [place], [address], 09/24/2024 14:19:42 09/25/19 25 09/24/2024 [UNIT Y] ANEUP LOIDY NIPT trisomy 18 LOW RISK <1 in 10,000 normal Not Available [facility] [address], [place], [address], 09/24/2024 14:19:42 09/25/19 25 09/24/2024 [UNIT Y] ANEUP LOIDY NIPT trisomy 21 LOW RISK <1 in 10,000 normal Not Available [facility] [address], [place], [address], 09/24/2024 14:19:42 09/25/19 25 09/24/2024 [UNIT Y] ANEUP LOIDY NIPT sex MALE normal Not Available [facility] [address], [place], [address], 09/24/2024 14:19:42 09/25/19 25 09/24/2024 [UNIT Y] ANEUP LOIDY NIPT gestation SINGLE TON normal Not Available [facility] [address], [place], [address], 09/24/2024 14:19:42 09/25/19 25 09/24/2024 [UNIT Y] ANEUP LORAY NIPT for detailed report, see pdf See PDF normal Not Available [facility] [address], [place], [address], 09/24/2024 14:19:42 09/27/19 25 09/26/2024 [UNIT Y] JANET Danielle sickle cell disease/beta -thalassemia /hemoglobino pathies carrier screen NEGATI VE normal Not Available [facility] [address], [place], [address], 09/26/2024 23:58:29 09/27/19 25 09/26/2024 [UNIT Y] JANET Danielle alpha-thalas semia carrier screen NEGATI VE normal Not Available [facility] [address], [place], [address], 09/26/2024 23:58:29 09/27/19 25 09/26/2024 [UNIT Y] JANET Danielle cystic fibrosis carrier screen NEGATI VE normal Not Available [facility] [address], [place], [address], 09/26/2024 23:58:29 09/27/19 25 09/26/2024 [UNIT Y] JANET Danielle spinal muscular atrophy carrier screen NEGATI VE 2 SMN1 copies , SNP not presen t normal Not Available [facility] [address], [place], [address], 09/26/2024 23:58:29 09/27/19 25 09/26/2024 [UNIT Y] JANET Danielle for detailed report, see pdf See PDF normal Not Available [facility] [address], [place], [address], 09/26/2024 23:58:29 09/19/19 25 09/18/2024 CBC W/DIF F WBC 7.0 10'3/ uL 3.5-10 .5 Not Available [facility] (Lab) [address], [place], [address], 09/19/2024 19:12:48 09/19/1909/18/2024 CBC W/DIF F RBC 4.17 10'6/ uL (based on docume nted legal sex) 3.80-5 .20 Not Available [facility] (Lab) [address], [place], [address], 09/19/2024 19:12:48 09/19/19 25 09/18/2024 CBC W/DIF F HGB 13.4 g/dL (based on docume nted legal sex) 11.6-1 5.4 Not Available [facility] (Lab) [address], [place], [address], 09/19/2024 19:12:48 09/19/1909/18/2024 CBC W/DIF F HCT 38.5 % (based on docume nted legal sex) 34.0-4 5.0 Not Available [facility] (Lab) [address], [place], [address], 09/19/2024 19:12:48 09/19/1909/18/2024 CBC W/DIF F MCV 92.3 fL 80.0-9 9.0 Not Available [facility] (Lab) [address], [place], [address], 09/19/2024 19:12:48 09/19/1909/18/2024 CBC W/DIF F MCH 32.1 pg 27.0-3 4.0 Not Available [facility] (Lab) [address], [place], [address], 09/19/2024 19:12:48 09/19/19 25 09/18/2024 CBC W/DIF F MCHC 34.8 g/dL 32.0-3 5.5 Not Available [facility] (Lab) [address] [place], [address], 09/19/2024 19:12:48 09/19/19 25 09/18/2024 CBC W/DIF F RDW 13.0 % 11.0-1 5.0 Not Available [facility] (Lab) [address] [facility], [place], [address], 09/19/2024 19:12:48 09/19/19 25 09/18/2024 CBC W/DIF F plt 243 10'3/ uL 150-40 0 Not Available [facility] (Lab) [address] [facility], [place], [address], 09/19/2024 19:12:48 09/19/19 25 09/18/2024 CBC W/DIF F MPV 10.2 fL 8.8-12 .1 Not Available [facility] (Lab) [address] [facility], [place], [address], 09/19/2024 19:12:48 09/19/19 25 09/18/2024 CBC W/DIF F neutrophils 64.4 % 34.0-7 3.0 Not Available [facility] (Lab) [address] [facility], [place], [address], 09/19/2024 19:12:48 09/19/19 25 09/18/2024 CBC W/DIF F lymphocytes 26.9 % 15.0-5 0.0 Not Available [facility] (Lab) [address] [facility], [place], [address], 09/19/2024 19:12:48 09/19/19 25 09/18/2024 CBC W/DIF F monocytes 6.7 % 1.0-15 .0 Not Available [facility] (Lab) [address] [facility], [place], [address], 09/19/2024 19:12:48 09/19/19 25 09/18/2024 CBC W/DIF F eosinophils 1.1 % 0.0-8. 0 Not Available [facility] (Lab) [address] [facility], [place], [address], 09/19/2024 19:12:48 09/19/19 25 09/18/2024 CBC W/DIF F basophils 0.6 % 0.0-2. 0 Not Available [facility] (Lab) [address] [facility], [place], [address], 09/19/2024 19:12:48 09/19/19 25 09/18/2024 CBC W/DIF [...] separ ately if prese nt. Not Available [facility] (Lab) [address] [facility], [place], [address], 09/19/2024 19:12:48 09/19/19 25 09/18/2024 CBC W/DIF F absolute neutrophils 4.5 10'3/ uL 1.5-8. 0 Not Available [facility] (Lab) [address] [facility], [place], [address], 09/19/2024 19:12:48 09/19/19 25 09/18/2024 CBC W/DIF F absolute lymphocytes 1.9 10'3/ uL 1.0-4. 0 Not Available [facility] (Lab) [address] [facility], [place], [address], 09/19/2024 19:12:48 09/19/19 25 09/18/2024 CBC W/DIF F absolute monocytes 0.5 10'3/ uL 0.2-1. 0 Not Available [facility] (Lab) [address] [facility], [place], [address], 09/19/2024 19:12:48 09/19/19 25 09/18/2024 CBC W/DIF F absolute eosinophils 0.1 10'3/ uL 0.0-0. 6 Not Available [facility] (Lab) [address] [facility], [place], [address], 09/19/2024 19:12:48 09/19/1909/18/2024 CBC W/DIF F absolute basophils 0.0 10'3/ uL 0.0-0. 3 Not Available [facility] (Lab) [address] [facility], [place], [address], 09/19/2024 19:12:48 09/19/1909/18/2024 CBC W/DIF F absolute [...] and book. nm.or g/gen derx Not Available [facility] (Lab) [address] [facility], [place], [address], 09/19/2024 19:12:48 09/19/1909/18/2024 HIV 1/2 ANTIG EN/AN TIBOD Y, REFLE X CONFI RMATI ON HIV antigen/anti body Nonrea ctive nonrea ctive HIV-1 antig en and HIV-1 /HIV- 2 antib odies were not detec pratima. No labor atory evide nce of HIV infec tion. Not Available [facility] (Lab) [address] [facility], [place], [address], 09/19/2024 19:12:49 09/19/1909/18/2024 HEPAT ITIS B SURFA CE ANTIG EN hepatitis B surface antigen Non-re active non-re active This assay was perfo rmed using [employer] ratio n reage nts and test kits. Value s obtai nicolette with other assay metho ds or kits canno t be used inter campos eably . Not Available [facility] (Lab) [address] [facility], [place], [address], 09/19/2024 19:12:49 09/19/19 25 09/18/2024 HEPAT ITIS C ANTIB ILA SCREE N, REFLE X TO CONFI RMATI ON hepatitis C antibody Non-re active non-re active Antib odies to HCV Not Detec pratima, does not exclu de the possi bilit y of expos ure to HCV. Not Available [facility] (Lab) [address] [facility], [place], [address], 09/19/2024 19:12:50 09/19/19 25 09/18/2024 RUBEL LA IGG ANTIB ILA, QUANT rubella antibodies, IgG Reacti ve reacti ve Not Available [facility] (Lab) [address] [facility], [place], [address], 09/19/2024 19:12:50 09/19/19 25 09/18/2024 RUBEL LA IGG ANTIB ILA, QUANT rubella antibodies, IgG quant 54.0 IU/mL >=10 Non-r eacti ve (Non- Immun e) <10 IU/mL React phuong (Immu ne) > or = 10 IU/mL Not Available [facility] (Lab) [address] [facility], [place], [address], 09/19/2024 19:12:50 09/19/1909/18/2024 TYPE/ RH/SC REEN ABO/Rh type A POS Not Available [facility] (Lab) [address] [facility], [place], [address], 09/19/2024 19:12:51 09/19/19 25 09/18/2024 TYPE/ RH/SC REEN antibody screen NEG Not Available [facility] (Lab) [address] [facility], [place], [address], 09/19/2024 19:12:51 09/19/19 25 09/18/2024 TYPE/ RH/SC REEN exp date 2024 23:59 Not Available [facility] (Lab) [address] [facility], [place], [address], 09/19/2024 19:12:51 09/19/19 25 09/18/2024 RPR SCREE N, REFLE X TITER /CONF IRMAT ION RPR qualitative Nonrea ctive nonrea ctive Not Available [facility] (Lab) [address] [facility], [place], [address], 09/19/2024 19:12:51 09/19/1909/18/2024 HEMOG LOBIN A1C hemoglobin [...] >8.0% Actio n sugge sted Not Available [facility] (Lab) [address] [facility], [place], [address], 09/19/2024 19:12:52 09/19/1909/18/2024 CULTU RE: URINE result report SEE RESULT S BELOW Test: Cultu re: Urine Speci men Sourc e: Urine - Clean Catch Speci men Type: Urine Speci men Date: 2024 1302 Resul t Date: 2024 Resul t Statu s: Final resul t Abnor mal: No Resul ting Lab: [facility] [address] [facility] [address] Tel: CULTU RE ----- ----- ----- --- No growt h in 1 day (dete ction level of 10,00 0 colon ies / ml.) Not Available [facility] (Lab) [address], [place], [address], 09/19/2024 22:31:54 09/19/19 25 09/18/2024 drug scree n, urine Amphetamines : negati ve Not Available [facility] [address], [place], [address], 09/18/2024 12:58:08 09/19/19 25 09/18/2024 drug scree n, urine Cannabinoids : negati ve Not Available [place] [address], [place], [address], 09/18/2024 12:58:08 09/19/19 25 09/18/2024 drug scree n, urine Cocaine: negati ve Not Available [facility] [address], [place], [address], 09/18/2024 12:58:08 09/19/19 25 09/18/2024 drug scree n, urine Opiates: negati ve Not Available [facility] [address], [place], [address], 09/18/2024 12:58:08 09/19/19 25 09/18/2024 drug scree n, urine Phenocyclidi ne: negati ve Not Available [facility] [address], [place], [address], 09/18/2024 12:58:08 09/19/19 25 09/18/2024 drug scree n, urine Barbiturates : negati ve Not Available [facility] [address], [place], [address], 09/18/2024 12:58:08 09/19/19 25 09/18/2024 drug scree n, urine Benzodiazepi rut: negati ve Not Available [facility] [address], [place], [address], 09/18/2024 12:58:08 09/19/19 25 09/18/2024 drug scree n, urine Ethanol: negati ve Not Available [facility] [address], [place], [address], 09/18/2024 12:58:08 09/19/19 25 09/18/2024 drug scree n, urine Hallucinogen s: negati ve Not Available [facility] [address], [place], [address], 09/18/2024 12:58:08 09/19/19 25 09/18/2024 drug scree n, urine Inhalants: negati ve Not Available [facility] [address], [place], [address], 09/18/2024 12:58:08 09/19/19 25 09/18/2024 drug scree n, urine Anabolic Steroids: negati ve Not Available [facility] [address], [place], [address], 09/18/2024 12:58:08 09/19/19 25 09/18/2024 drug scree n, urine Other: negati ve Not Available [facility] [address], [place], [address], 09/18/2024 12:58:08 12/25/19 25 12/24/2024 HEMOG LOBIN (HGB) HGB 11.2 g/dL (based on docume nted legal sex) 11.6-1 5.4 low Not Available [facility] (Lab) [address], [place], [address], 12/25/2024 11:30:32 12/25/19 25 12/24/2024 HEMAT OCRIT (HCT) HCT 34.3 % (based on docume nted legal sex) 34.0-4 5.0 Not Available [facility] (Lab) [address] [facility], [place], [address], 12/25/2024 11:30:33 12/25/19 25 12/24/2024 GTT - GESTA KULWINDER L LIO Danielle, ACOG OB glucose, 1 hour screen 84 mg/dL 70-135 Not Available [facility] (Lab) [address] [facility], [place], [address], 12/25/2024 11:30:33 12/25/19 25 12/24/2024 HIV 1/2 ANTIG EN/AN TIBOD Y, REFLE X CONFI RMATI ON HIV antigen/anti body Nonrea ctive nonrea ctive HIV-1 antig en and HIV-1 /HIV- 2 antib odies were not detec pratima. No labor atory evide nce of HIV infec tion. Not Available [facility] (Lab) [address] [facility], [place], [address], 12/25/2024 11:30:34 12/25/19 25 12/24/2024 RPR SCREE N, REFLE X TITER /CONF IRMAT ION RPR qualitative Nonrea ctive nonrea ctive Not Available [facility] (Lab) [address] [facility], [place], [address], 12/25/2024 11:30:35 02/19/20 25 02/18/2025 CULTU RE: [...] t Abnor mal: No Resul ting Lab: [facility] [address] [facility] [address] Tel: CULTU RE ----- ----- ----- --- No Group B strep isola pratima at 2 days (lucian ctive broth enhan cemen t) Not Available [facility] (Lab) [address], [place], [address], 02/21/2025 15:16:47 09/19/19 25 09/18/2024 US, obste tric, nucha l trans lucen cy No observ ation record ed. [email or web address] [place] [address], [place], [address], 09/18/2024 09:39:19 09/19/1909/18/2024 US, obste tric, 1st trime ster No observ ation record ed. [email or web address] [place] [address], [place], [address], 09/18/2024 09:39:29 09/19/19 25 09/18/2024 US, obste tric, follo w-up No observ ation record ed. [email or web address] [address], [place], [address], 09/19/2024 22:38:18 10/30/19 25 10/29/2024 US, obste tric, 2nd or 3rd trime ster No observ ation record ed. [email or web address] [place] [address], [place], [address], 10/29/2024 18:43:01 10/30/19 25 10/29/2024 US, obste tric, follo w-up No observ ation record ed. [email or web address] [address], [place], [address], 11/06/2024 11:15:29 11/27/19 25 11/26/2024 US, obste tric, follo w-up No observ ation record ed. [email or web address] [place] [address], [place], [address], 11/26/2024 18:39:21 11/27/19 25 11/26/2024 US, obste tric, follo w-up No observ ation record ed. [email or web address] [address], [place], [address], 12/04/2024 16:09:37 12/25/19 25 12/24/2024 US, obste tric, follo w-up No observ ation record ed. [email or web address] [place] [address], [place], [address], 12/24/2024 18:47:52 12/25/19 25 12/24/2024 US, obste tric, follo w-up No observ ation record ed. [email or web address] [address], [place], [address], 12/24/2024 17:55:03 01/22/20 25 01/21/2025 US, obste tric, follo w-up No observ ation record ed. [email or web address] [place] [address], [place], [address], 01/21/2025 18:26:14 01/22/20 25 01/21/2025 US, obste tric, follo w-up No observ ation record ed. [email or web address] [address], [place], [address], 01/21/2025 23:49:40 02/19/20 25 02/18/2025 US, obste tric, follo w-up No observ ation record ed. [email or web address] [place] [address], [place], [address], 02/18/2025 18:26:30 02/19/20 25 02/18/2025 US, obste tric, follo w-up No observ ation record ed. El[address], [place], [address], 02/18/2025 17:29:39 Result Notes None recorded. Problems Name Problem SNOMED Code Status Onset Date Resolution Date Notes Provider Name and Address Organization Details Recorded Time Anxiety in pregnanc y 9378018716 9109 Active off celexa for 3 years, stable Susannah partida, [facility] 2 13:40:28 Anxiety in pregnanc y 7897144521 9109 Completed off celexa for 3 years, stable Susannah partida, [facility] 2 13:40:28 Ultrasou nd scan abnormal [id number] Completed EIF- discusse d, reassure d Susannah partida, [facility] 2 13:40:28 History of abnormal cervical Papanico laou smear [id number] Completed 02/17/20 23 hgsil hpv+ 03/26/20 22 ascus +hpv 2 lgsil hpv high risk hpv 16 neg std 8 neg pap neg std 7 ascus hpv high risk hpv 16 Sondra partida, [facility] 5 13:02:02 Human papillom a virus infectio n 717865941 Completed Sondra partida, [facility] 5 13:02:09 Cervical intraepi thelial neoplasi a grade 1 371980413 Completed 2021 Sondra partida, [facility] 5 13:02:39 Anxiety 50456519 Completed doing well, has been off meds Chichi Camilo, CNSharon [address], [place], [address], [facility] 5 08:42:52 History of hernia repair [id number] 9109 Completed Sondra Bazan [facility], [facility] 5 13:03:17 Syphilis test finding 825847959 Completed 201507/20/2021 Encntr screen for infectio ns w sexl mode of transmis s;Record ed Elsewher e: No Locat ion: [facility] S ource: EHR Technical Artist roney: N Practi ce ID: 0001 Matty lable Time: 01:00:00 PM Ale partida, [facility] 2 15:34:17 Infectio n screenin g Completed 201507/20/2021 Encounte r for screenin g for oth infec/pa rastc diseases ;Recorde d Elsewher e: No Locat ion: [facility] S ource: EHR Technical Artist roney: N Practi ce ID: 0001 Matty lable Time: 01:00:00 PM Ale Bradley [facility], [facility] 2 15:32:30 Screenin g for malignan t neoplasm of cervix Completed 201507/20/2021 Encounte r for screenin g for malignan t neoplasm of cervix;R ecorded Elsewher e: No Locat ion: [facility] S ource: EHR Technical Artist roney: N Practi ce ID: 0001 Matty lable Time: 01:00:00 PM Ale partida, [facility] 2 15:32:20 Pregnanc y, childbir th and puerperi um finding Completed 201507/20/2021 Encntr for suprvsn of normal first preg, second trimeste r;Practi ce ID: 0001 Ale Bradley [facility], [facility] [address] 15:34:[address] Concept Completed 201507/20/2021 Maternal care for oth abnormal ity and damage, unsp;Pra ctice ID: 0001 Ale partida, [facility] 2 15:32:23 Gestatio n period, 25 weeks 21857095 Completed 201507/20/2021 25 weeks gestatio n of pregnanc y;Practi ce ID: 0001 Ale partida, [facility] 2 15:35:03 Gestatio n period, 34 weeks 03094912 Completed 201507/20/2021 34 weeks gestatio n of pregnanc y;Practi ce ID: 0001 Ale partida, [facility] 2 15:32:17 Gestatio n period, 36 weeks 68590548 Completed 201507/20/2021 36 weeks gestatio n of pregnanc y;Practi ce ID: 0001 Ale partida, [facility] 2 15:34:27 Lacerati on of female perineum Completed 201507/20/2021 Second degree perineal lacerati on during delivery ;Practic e ID: 0001 Ale partida, [facility] 2 15:32:25 Gestatio n period, 39 weeks 57935338 Completed 201507/20/2021 39 weeks gestatio n of pregnanc y;Practi ce ID: 0001 Ale partida, [facility] 2 15:35:[address] Concept Completed 201607/20/2021 Encntr for pattern attendant exam (general ) (routine ) w/o abn findings ;Practic e ID: Jyothi partida, [facility] [address] 15:32:[address] Concept Completed 201607/20/2021 Encntr for general adult medical exam w/o abnormal findings ;Recorde d Elsewher e: No Locat ion: [facility] S ource: EHR Technical Artist roney: N Jasti ce ID: 0001 Matty lable Time: 03:30:00 PM Ale partida [facility] 2 15:32:43 Procedur e by method Completed 201607/20/2021 Encounte r for other general counseli ng and advice on contrace ption;Re corded Elsewher e: No Locat ion: [facility] S ource: EHR Technical Artist roney: N Jasti ce ID: 0001 Matty lable Time: 03:30:00 PM Ale partida [facility] 2 15:33:58 Human papillom avirus deoxyrib onucleic acid detected , high risk on cervical specimen [id number] Completed 201607/20/2021 Cervical high risk HPV DNA test positive ;Recorde d Elsewher e: No Locat ion: [facility] S ource: EHR Technical Artist roney: N Jasti ce ID: 0001 Matty lable Time: 01:44:32 PM Ale partida [facility] 2 15:35:01 Atypical squamous cells of undeterm ined signific ance on cervical Papanico laou smear 170956880 Completed 201607/20/2021 Atyp squam cell of undet signfc cyto smr crvx (ASC-US) ;Practic e ID: 0001 Ale partida [facility] 2 15:34:19 Pregnanc y test negative 090844542 Completed 201607/20/2021 Encounte r for pregnanc y test, result negative ;Practic e ID: 0001 Ale partida [facility] 2 15:32:38 Low grade squamous intraepi thelial lesion on cervical Papanico laou smear [id number] 9105 Completed 201607/20/2021 Low grade intrepit h lesion cyto smr crvx (LGSIL); Practice ID: 0001 Ale partida [facility] 2 15:34:32 Pregnanc y detectio n examinat ion Completed 201707/20/2021 Encounte r for pregnanc y test, result positive ;Practic e ID: 0001 Ale partida [facility] 2 15:35:05 Antenata l screenin g Completed 201707/20/2021 Encounte r for antenata l screenin g for uncertai n dates;Pr actice ID: 0001 Ale partida [facility] 2 15:32:28 Rubella screenin g status [id number] Completed 201707/20/2021 Encounte r for antenata l screenin g, unspecif ied;Flaquito rded Elsewher e: No Locat ion: Samira gibbs [facility] S ource: EHR Technical Artist roney: N Practi ce ID: 0001 Matty lable Time: 02:45:00 PM Ale partida [facility] 2 15:32:36 Antenata l screenin g for malforma tion Completed 201707/20/2021 Encounte r for antenata l screenin g for malforma tions;Pr actice ID: 0001 Ale partida [facility] 2 15:34:58 Uterine size for dates discrepa ncy Completed 201707/20/2021 Uterine size-twin e discrepa ncy, second trimeste r;Practi ce ID: 0001 Ale Bradley [facility], [facility] 2 15:32:21 Gestatio n period, 24 weeks [id number] Completed 201707/20/2021 24 weeks gestatio n of pregnanc y;Practi ce ID: 0001 Ale Kirk helga, [facility] 2 15:32:41 Normal pregnanc y in multigra daniela [id number] Completed 201707/20/2021 Encounte r for suprvsn of normal pregnanc y, third trimeste r;Practi ce ID: 0001 Ale Bradley helga, [facility] 2 15:34:20 Gestatio n period, 40 weeks [id number] Completed 201707/20/2021 40 weeks gestatio n of pregnanc y;Practi ce ID: 0001 Ale Bradley helga, [facility] 2 15:34:25 Single live from singleto n pregnanc y [id number] Completed 201707/20/2021 Single live ;Pr actice ID: 0001 Ale Robards helga, [facility] 2 15:32:18 Precipit ate labor [id number] Completed 201707/20/2021 Precipit ate labor;Pr actice ID: 0001 Ale Bradley helga, [facility] 2 15:34:24 Pelvic and perineal pain [id number] Completed 201707/20/2021 Pelvic and perineal pain;Pra ctice ID: 0001 Ale Bradley helga, [facility] 2 15:32:40 Lochia finding Completed 201707/20/2021 Encounte r for routine postpart um follow-u p;Practi ce ID: 0001 Ale Bradley helga, [facility] 2 15:34:16 Cervicov aginal cytology : Low grade squamous intraepi thelial lesion [id number] Active 2021 Juliana Santiago MD [address], [place], [address], [facility] 2 14:55:31 Atypical glandula r cells on cervical Papanico laou smear [id number] Completed 2021 and LSIL. colpo done. Needs ECC and EMB followin g delivery . Susannahjose e gutierrez null, [facility] 2 13:40:28 Pregnanc y [id number] Completed 202102/12/2022 Tracie Morenolibertad partida, [facility] 5 09:47:33 Abnormal cervical Papanico laou smear [id number] Active 202402/17/20 23 hgsil hpv+ 03/26/20 22 ascus +hpv 2 lgsil hpv high risk hpv 16 neg std 8 neg pap neg std 7 ascus hpv high risk hpv 16 Sondra partida, [facility] 5 12:54:41 Pregnanc y 71803887 Completed 202404/09/2025 Tracie Mary [facility], [facility] 5 09:47:33 Unwanted fertilit y 358028041 Completed 2024 salpinge ctomy consents signed at 32 weeks MURRAY MARTINEZ MD [address], [place], [address], [facility] 5 15:17:44 Precipit ate labor [id number] Completed 2024 Timi Gonzalez MD [address], [place], [address], [facility] 15:22:17 Problem Notes None recorded. Procedures Surgical History Date Name Laterality Status Provider Name and Address Organization Details Recorded Time 08/28/19 Date of Last Pap Smear completed Sondra Bazan [facility] 09/18/2024 12:53:55 06/23/20 23 Colposcopy completed Timi Gonzalez MD [address], [place], [address], [facility] 06/23/2023 18:38:15 06/23/20 23 Colposcopy completed Sheree Dumonter [facility] 08/27/2024 14:36:50 06/23/20 23 Colposcopy completed Аннаkatherin Stapleton [facility] 06/23/2023 11:05:42 03/26/20 22 Endometrial Biopsy completed Juliana Santiago MD [address], [place], [address], [facility] 03/26/2022 11:44:17 03/26/20 22 Colposcopy completed Sondra Bazan [facility] 09/18/2024 12:56:33 08/29/19 22 Colposcopy completed Juliana Santiago MD [address], [place], [address], [facility] 08/28/2021 14:57:14 01/04/20 17 Colposcopy completed Sondra Bazan [facility] 01/18/2022 15:35:17 06/27/19 07 termination of completed Sondra Bazan [facility] 01/18/2022 15:38:40 06/27/18 91 hernia repair completed Ale Bradley [facility] 07/20/2021 16:20:44 Imaging Results None recorded. [...] Prescrib ed Elsewher e: No Locat ion: [facility]ify By: seema Loyd r DateTime : 04/18/20 17 09:50:56 AM Not Available Not Available Not Available citalopra m 20 mg tablet TAKE 1 TABLET BY ORAL ROUTE EVERY DAY 07/21 completed Not Available Not Available Not Available Loestrin 07/16 (21) 1 mg-20 mcg tablet take 1 tablet by oral route every day 07/20 completed Prescrib ed Elsewher e: No Locat ion: [facility] odify By: [email or web address] Rach r DateTime : 06/23/20 18 02:45:00 PM Not Available Not Available Not Available Vitamin D2 1,250 mcg (50,000 unit) capsule take 1 capsule by oral route every week 11/24 completed Prescrib ed Elsewher e: No Locat ion: [facility] odify By: seema Loyd r DateTime : 09/16/19 16 01:22:56 PM Not Available Not Available Not Available active Not Available Not Avai lable Not Available [employer] 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 09/18/2024 19:15:23 Do You Have An [...] Or The Highest Degree You Have Received? [id number] Information not available 12/11/2021 Are There Any [...] Have Difficulty Walking Or Climbing Stairs? No [email or web address] Information not available 03/26/2022 Sex: Unknown Functional Status Question Answer Note LastModified by Organizat ion Details LastModified Time Do you use any illicit or recreational drugs? No Information not available 12/11/2021 Do you or have you ever used any other forms of tobacco or nicotine? Yes [email or web address] Information not available 09/18/2024 What is your level of alcohol consumption? None Information not available 12/11/2021 Are you able to walk independently without assistance or assistive devices? YESWOREST Information not available 12/11/2021 Are you able to care for yourself independently? 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 No Information not available 03/26/2022 Do you or have you ever used e-cigarettes or vape? Former user of electronic cigarettes [email or web address] Information not available 09/18/2024 What is your exercise level? Occasional Information not available 12/11/2021 Mental Status Question Answer Note LastModified by Organization D etails LastModified Time Do you feel stressed (tense, restless, nervous, or anxious, or unable to sleep at night)? [id number] Information not available 12/11/2021 Family History Relationship Description Onset Age of this Age Resolved Age Notes LastModified by Organization Details LastModified Time Mother Cyst of ovary [email or web address] Not available 2021 16:19:55 Notes:07/19/2021 Cancer risk [...] ICD10 Code Diagnosis IMO Codes Diagnosis Note [id number] MURRAY MARTINEZ MD [place] [address],[place] [address] 02/18/2025 16:25:20 02/18/2025 17:32:44 Anxiety 01979648 F41.9 - mood stable Gestation period, 35 weeks 30591160 Z3A.35 2350973 - continue PNV [id number] MURRAY MARTINEZ MD [place] [address],[place] [address] 02/18/2025 16:25:39 02/18/2025 17:20:49 care status 441649491 O36.5930 Z3A.35 549527 -continue PNV [id number] MURRAY MARTINEZ MD [place] [address],[place] [address] 02/27/2025 13:57:33 02/27/2025 14:37:57 Anxiety 20011754 F41.9 - mood stable Gestation period, 37 weeks 29083567 Z3A.37 3872777 - continue PNV [id number] MURRAY MARTINEZ MD [place] [address],[place] [address] 03/06/2025 16:48:59 03/07/2025 09:00:54 Anxiety 84837419 F41.9 - mood stable Gestation period, 38 weeks 81736094 Z3A.38 5355011 - continue PNV [id number] MURRAY MARTINEZ MD [place] [address],[place] [address] 03/13/2025 14:46:57 03/13/2025 15:36:54 Unwanted fertility 853654501 Z30.09 [id number] - patient desires permanent sterilizat ion- discussed risks, benefits, and alternativ es of bilateral salpingect kaylan, including risks of bleeding, infection and injury to surroundin g organs. Also discussed alternativ e contracept phuong options including partner vasectomy and patient declines.- tubal papers signed Anxiety 42067383 F41.9 - mood stable Gestation period, 39 weeks 69128280 Z3A.39 3598701 - continue PNV [id number] MURRAY MARTINEZ MD [place] [address],[place] [address] 03/20/2025 08:44:58 03/20/2025 11:52:43 Health Concerns Section Related Observation LastModified by Organization Detai ls LastModified Time None Recorded Concern Status LastModified by Organization Details LastModified Time None Recorded Payers Encounter Date Sequence Insurance Name Policy Number Policy Florez Covered Member ID Florez Member ID Guarantor Name 03/20/2025 1 [facility] - DOS ON OR AFTER 20 (MEDICAID REPLACEMENT - HMO) Catrachita Cerna [id number] Catrachita Cerna OBGyn Episode Ob Episode Information Episode Created Date Number of Fetuses Patient Bloodtype Patient rh Status Prepregnancy Weight lbs Domestic Partner Domestic Partner Phone Father Name Dual Hose Cementer Status 09/19/19 25 1 A Positive [address] CLOSED Fetus Data First Name Last Name Admitted to NICU Weight (g) Sex Living Outcome Pediatric Complications Fetus ID Race Codes Race Delivery Type 3430.28 95 M true Full Term [id number] Vaginal Delivery Problems Problem Notes Problem Name Start Date End Date Resolution Snomed Code Note Unwanted fertility 5 [id number] salpingectomycon sents signed at 32 weeks History of hernia repair 16337354277086 Human papilloma virus infection 576568886 Precipitate labor 5 53459598 Cervical intraepithelial neoplasia grade 1 567157230 2021 History of abnormal cervical Papanicolaou smear 126197680 3 hgsil hpv+03/26/2022 ascus +hpv07/21/2021 lgsil hpv high risk hpv 16 neg std 11/24/2017 neg pap neg std10/21/2016 ascus hpv high risk hpv 16 Anxiety 59345006 doing well , has been off meds [...] Weight in lbs Pre/Post Dialysis Refused Weight 132.010788800593 BP Diastolic BP Location Tested BP Systolic [...] Type Weight in lbs Pre/Post Dialysis Refused 139.819072516363 BP Diastolic BP Location Tested BP Systolic [...] Type Weight in lbs Pre/Post Dialysis Refused 143.395477120507 BP Diastolic BP Location Tested BP Systolic [...] Weight in lbs Pre/Post Dialysis Refused Weight 149.15138845002 BP Diastolic BP Location Tested BP Systolic [...] Weight in lbs Pre/Post Dialysis Refused Weight 157.858268167584 BP Diastolic BP Location Tested BP Systolic [...] Type Weight in lbs Pre/Post Dialysis Refused 159.810385142693 BP Diastolic BP Location Tested BP Systolic [...] Weight in lbs Pre/Post Dialysis Refused Weight 163.154100199757 BP Diastolic BP Location Tested BP Systolic [...] Weight in lbs Pre/Post Dialysis Refused Weight 167.836466595879 BP Diastolic BP Location Tested BP Systolic [...] Weight in lbs Pre/Post Dialysis Refused Weight 167.638230323056 BP Diastolic BP Location Tested BP Systolic [...] Weight in lbs Pre/Post Dialysis Refused Weight 173.533152031881 BP Diastolic BP Location Tested BP Systolic [...] Type Weight in lbs Pre/Post Dialysis Refused 174.94901103059 BP Diastolic BP Location Tested BP Systolic [...] Type Weight in lbs Pre/Post Dialysis Refused 176.129774650086 BP Diastolic BP Location Tested BP Systolic [...]
--- OUTSIDE RECORDS SUMMARY | 2025-05-27 00:31 | XMS_ITS | Data Portability ---
Author Organization [facility], [facility] Address [address] [place] [address] Care Team Providers Care Relief Captain Name Role Phone RITU MCGUIRE Primary Care [...] salpingec nikolai, laparosco pic (SURG) 2024 025 [facility] [facility], [facility] [address], [address], 05/06/2025 16:53:37 Imaging None recorded. Medication Orders None recorded. Patient TargetsNo targets recorded. Patient InstructionsNo instructions recorded. Reason for Referral None Reported. Results Created Date Observation Date Name Description Value Unit Range Abnormal Flag Note LastModifiedBy Organization Detail LastModifiedTime 02/19/20 25 02/18/2025 CULTU RE: GROUP B STREP SCREE N, REFLE X SUSCE PTIBI LITY result report SEE RESULT S BELOW Test: Cultu re: Group B Strep , Refle x Susce ptibi lity ([facility]/ [facility] ) Speci men Sourc e: Vagin a/Rec tom Speci men Type: Vagin al/Re ctal Speci men Date: 8/25/ 2025 1624 Resul t Date: 2024 1413 Resul t Statu s: Final resul t Abnor mal: No Resul ting Lab: [facility] [address] [facility] [address] Tel: CULTU RE ----- ----- ----- --- No Group B strep isola pratima at 2 days (lucian ctive broth enhan cemen t) Not Available [facility] (Lab) [address], [place], [address], 02/21/2025 15:16:47 02/19/2002/18/2025 US, obste tric, follo w-up No observ ation record ed. [email or web address] [place] [address], [place], [address], 02/18/2025 18:26:30 02/19/20 25 02/18/2025 US, obste tric, follo w-up No observ ation record ed. [email or web address] Elisabeth [address], [place], [address], 02/18/2025 17:29:39 Result Notes None recorded. Problems Name Problem SNOMED Code Status Onset Date Resolution Date Notes Provider Name and Address Organization Details Recorded Time Anxiety in pregnanc y 0927078078 9109 Active off celexa for 3 years, stable Susannah Cuong partida, [facility] 2 13:40:28 Anxiety in pregnanc y 9147280941 9109 Completed off celexa for 3 years, stable Susannah Meredithbob gutierrez null, [facility] 2 13:40:28 Ultrasou nd scan abnormal 218312682 Completed EIF- discusse d, reassure d Susannah Meredithbenmaria rsweta partida, [facility] 2 13:40:28 History of abnormal cervical Papanico laou smear 485393941 Completed 02/17/20 23 hgsil hpv+ 03/26/20 22 ascus +hpv 2 lgsil hpv high risk hpv 16 neg std 8 neg pap neg std 7 ascus hpv high risk hpv 16 Sondra Bazan helga, [facility] 5 13:02:02 Human papillom a virus infectio n 480926712 Completed Sondra Bazan [facility], [facility] 5 13:02:09 Cervical intraepi thelial neoplasi a grade 1 738384418 Completed 2021 Sondra Bazan [facility], [facility] 5 13:02:39 Anxiety 44065991 Completed doing well, has been off meds Chichi Camilo, CN [address], [place], [address], [facility] 5 08:42:52 History of hernia repair 3149356978 9109 Completed Sondra Mccrarytz [facility], [facility] 5 13:03:17 Syphilis test finding 912186510 Completed 201507/20/2021 Encntr screen for infectio ns w sexl mode of transmis s;Record ed Elsewher e: No Locat ion: [facility] S ource: EHR Branch Account Executive roney: N Jewell ce ID: 0001 Matty lable Time: 01:00:00 PM Ale Kirk partida, [facility] 2 15:34:17 Infectio n screenin g Completed 201507/20/2021 Encounte r for screenin g for oth infec/pa rastc diseases ;Recorde d Elsewher e: No Locat ion: [facility] S ource: EHR Branch Account Executive roney: N Jasti ce ID: 0001 Matty lable Time: 01:00:00 PM Ale partida, [facility] 2 15:32:30 Screenin g for malignan t neoplasm of cervix Completed 201507/20/2021 Encounte r for screenin g for malignan t neoplasm of cervix;R ecorded Elsewher e: No Locat ion: Samira gibbs [facility] S ource: EHR Branch Account Executive roney: N Practi ce ID: 0001 Matty lable Time: 01:00:00 PM Ale partida, [facility] 2 15:32:20 Pregnanc y, childbir th and puerperi um finding Completed 201507/20/2021 Encntr for suprvsn of normal first preg, second trimeste r;Practi ce ID: 0001 Ale [place] helga, [facility] 2 15:34:[address] Concept Completed 201507/20/2021 Maternal care for oth abnormal ity and damage, unsp;Pra ctice ID: 0001 Ale [place] helga, [facility] 2 15:32:23 Gestatio n period, 25 weeks 51929789 Completed 201507/20/2021 25 weeks gestatio n of pregnanc y;Practi ce ID: 0001 Ale Kirk partida, [facility] 2 15:35:03 Gestatio n period, 34 weeks 80889268 Completed 201507/20/2021 34 weeks gestatio n of pregnanc y;Practi ce ID: 0001 Ale Kirk partida, [facility] 2 15:32:17 Gestatio n period, 36 weeks 87969472 Completed 201507/20/2021 36 weeks gestatio n of pregnanc y;Practi ce ID: 0001 Ale partida, [facility] 2 15:34:27 Lacerati on of female perineum Completed 201507/20/2021 Second degree perineal lacerati on during delivery ;Practic e ID: 0001 Ale partida, [facility] 2 15:32:25 Gestatio n period, 39 weeks 61987333 Completed 201507/20/2021 39 weeks gestatio n of pregnanc y;Practi ce ID: 0001 Ale partida, [facility] 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 [address] 15:32:[address] Concept Completed 201607/20/2021 Encntr for general adult medical exam w/o abnormal findings ;Recorde d Elsewher e: No Locat ion: [facility] S ource: EHR Branch Account Executive roney: N Practi ce ID: 0001 Matty lable Time: 03:30:00 PM Ale partida [facility] 2 15:32:43 Procedur e by method Completed 201607/20/2021 Encounte r for other general counseli ng and advice on contrace ption;Re corded Elsewher e: No [facility]: E[facility] Branch Account Executive roney: N Practi ce ID: 0001 Matty lable Time: 03:30:00 PM Ale partida, [facility] 2 15:33:58 Human papillom avirus deoxyrib onucleic acid detected , high risk on cervical specimen 061295103 Completed 201607/20/2021 Cervical high risk HPV DNA test positive ;Recorde d Elsewher e: No Locat ion: [facility] S ource: EHR Branch Account Executive roney: N Practi ce ID: 0001 Matty lable Time: 01:44:32 PM Ale partida [facility] 2 15:35:01 Atypical squamous cells of undeterm ined signific ance on cervical Papanico laou smear 837042494 Completed 201607/20/2021 Atyp squam cell of undet signfc cyto smr crvx (ASC-US) ;Practic e ID: 0001 Ale partida [facility] 2 15:34:19 Pregnanc y test negative 954948676 Completed 201607/20/2021 Encounte r for pregnanc y test, result negative ;Practic e ID: 0001 Ale partida [facility] 2 15:32:38 Low grade squamous intraepi thelial lesion on cervical Papanico laou smear 5382467832 9105 Completed 201607/20/2021 Low grade intrepit h lesion cyto smr crvx (LGSIL); Practice ID: 0001 Ale partdia, [facility] 2 15:34:32 Pregnanc y detectio n examinat ion Completed 201707/20/2021 Encounte r for pregnanc y test, result positive ;Practic e ID: 0001 Ale partida [facility] 2 15:35:05 Antenata l screenin g Completed 201707/20/2021 Encounte r for antenata l screenin g for uncertai n dates;Pr actice ID: 0001 Ale partida, [facility] 2 15:32:28 Rubella screenin g status 166382166 Completed 201707/20/2021 Encounte r for antenata l screenin g, unspecif ied;Flaquito rded Elsewher e: No Locat ion: [facility] S ource: EHR Branch Account Executive roney: N Practi ce ID: 0001 Matty lable Time: 02:45:00 PM Ale partida, [facility] 2 15:32:36 Antenata l screenin g for malforma tion Completed 201707/20/2021 Encounte r for antenata l screenin g for malforma tions;Pr actice ID: 0001 Ale [place] helga, [facility] 2 15:34:58 Uterine size for dates discrepa ncy Completed 201707/20/2021 Uterine size-twin e discrepa ncy, second trimeste r;Practi ce ID: 0001 Ale Kirk partida, [facility] 2 15:32:21 Gestatio n period, 24 weeks 586507328 Completed 201707/20/2021 24 weeks gestatio n of pregnanc y;Practi ce ID: 0001 Ale Kirk partida, [facility] 2 15:32:41 Normal pregnanc y in multigra daniela 9687272928 62033 Completed 201707/20/2021 Encounte r for suprvsn of normal pregnanc y, third trimeste r;Practi ce ID: 0001 Ale [place] helga, [facility] 2 15:34:20 Gestatio n period, 40 weeks 06371032 Completed 201707/20/2021 40 weeks gestatio n of pregnanc y;Practi ce ID: 0001 Ale Bradley helga, [facility] 2 15:34:25 Single live from singleto n pregnanc y 706656337 Completed 201707/20/2021 Single live ;Pr actice ID: 0001 Ale partida, [facility] 2 15:32:18 Precipit ate labor [id number] Completed 201707/20/2021 Precipit ate labor;Pr actice ID: 0001 Ale Bradley [facility], [facility] 2 15:34:24 Pelvic and perineal pain 977787024 Completed 201707/20/2021 Pelvic and perineal pain;Pra ctice ID: 0001 Ale Bradley [facility] 2 15:32:40 Lochia finding Completed 201707/20/2021 Encounte r for routine postpart um follow-u p;Practi ce ID: 0001 Ale Bradley [facility], [facility] 2 15:34:16 Cervicov aginal cytology : Low grade squamous intraepi thelial lesion 389986544 Active 2021 Juliana Santiago MD [address], [place], [address], [facility] 2 14:55:31 Atypical glandula r cells on cervical Papanico laou smear 468502870 Completed 2021 and LSIL. colpo done. Needs ECC and EMB followin g delivery . Susannah gutierrez [facility] 2 13:40:28 Pregnanc y 69833284 Completed 202102/12/2022 Tracie Hernandez [facility] 5 09:47:33 Abnormal cervical Papanico laou smear 792089675 Active 202402/17/20 23 hgsil hpv+ 03/26/20 22 ascus +hpv 2 lgsil hpv high risk hpv 16 neg std 8 neg pap neg std 7 ascus hpv high risk hpv 16 Sondra Bazan [facility], [facility] 5 12:54:41 Pregnanc y 62243292 Completed 202404/09/2025 Tracie Hernandez null, [facility] 09:47:33 Unwanted fertilit y 560263595 Completed 2024 salpinge ctomy consents signed at 32 weeks MURRAY MARTINEZ MD [address], [place], [address], [facility] 15:17:44 Precipit ate labor [id number] Completed 2024 Timi Gonzalez MD [address], [place], [address], [facility] 15:22:17 Problem Notes None recorded. Procedures Surgical History Date Name Laterality Status Provider Name and Address Organization Details Recorded Time 08/28/19 Date of Last Pap Smear completed Sondra Bazan [facility] 09/18/2024 12:53:55 06/23/20 23 Colposcopy completed Timi Gonzalez MD [address], [place], [address], [facility] 06/23/2023 18:38:15 06/23/20 23 Colposcopy completed Sheree Wasserman [facility] 08/27/2024 14:36:50 06/23/20 23 Colposcopy completed Анна Stapleton [facility] 06/23/2023 11:05:42 03/26/20 22 Endometrial Biopsy completed Juliana Santiago MD [address], [place], [address], [facility] 03/26/2022 11:44:17 03/26/20 22 Colposcopy completed Sondra Bazan [facility] 09/18/2024 12:56:33 08/29/19 22 Colposcopy completed Juliana Santiago MD [address], [place], [address], [facility] 08/28/2021 14:57:14 01/04/20 17 Colposcopy completed Sondra Mccrarytz [facility] 01/18/2022 15:35:17 06/27/19 07 termination of completed Sondra Mccrarytz [facility] 01/18/2022 15:38:40 06/27/18 91 hernia repair completed Ale Ramosan [facility] 07/20/2021 16:20:44 Imaging Results None recorded. [...] Prescrib ed Elsewher e: No Locat ion: [facility] odify By: seema Loyd r DateTime : 04/18/20 17 09:50:56 AM Not Available Not Available Not Available citalopra m 20 mg tablet TAKE 1 TABLET BY ORAL ROUTE EVERY DAY 07/21 completed Not Available Not Available Not Available Loestrin 07/16 (21) 1 mg-20 mcg tablet take 1 tablet by oral route every day 07/20 completed Prescrib ed Elsewher e: No Locat ion: [facility] odify By: [email or web address] Encounte r DateTime : 06/23/20 18 02:45:00 PM Not Available Not Available Not Available Vitamin D2 1,250 mcg (50,000 unit) capsule take 1 capsule by oral route every week 11/24 completed Prescrib ed Elsewher e: No Locat ion: [facility] odify By: seema Loyd r DateTime : 09/16/19 16 01:22:56 PM Not Available Not Available Not Available active Not Available Not Avai lable Not Available PROFESS[employer]-PNV-DH A 28 mg iron-1 mg-200 mg capsule take 1 capsule by oral route every day 02/05 completed Prescrib alden D[place] e: No [facility] Sharon juarezramone By: laurel cat DateTime : 12/13/19 11:10:03 AM Not Available Not Available Not Available Vitals Date Recorded Body height Body mass index (BMI) Body weight Systolic And Diastolic Provider Name and Address Organization Details Last Updated DateTime 02/27/2025 152.4 cm 33.8 kg/m2 32664.48 g 115/79 mm[Hg] Sheree Wasserman [facility] 02/27/2025 14:04:04 Date Recorded Body weight Systolic And Diastolic Provider Name and Address Organization Details Last Updated DateTime 03/06/2025 76016.61135 g 127/81 mm[Hg] [facility] 03/06/2025 17:17:21 Date Recorded Body weight Body mass index (BMI) Body height Systolic And Diastolic Provider Name and Address Organization Details Last Updated DateTime 03/13/2025 23401.257 12 g 34.4 kg/m2 152.4 cm 125/79 mm[Hg] [facility] 03/13/2025 14:51:20 Date Recorded Body height Body mass index (BMI) Body weight Systolic And Diastolic Provider Name and Address Organization Details Last Updated DateTime 05/01/2025 152.4 cm 32.8 kg/m2 90306.52 g 109/71 mm[Hg] [facility] 05/01/2025 14:26:03 Social History Question Answer Notes LastModified by Organizat ion Details LastModified Time Tobacco Smoking Status Former Smoker Sondra partida [facility] 09/18/2024 19:15:23 Do You Have An [...] Or The Highest Degree You Have Received? [id number] Information not available 12/11/2021 Are There Any [...] other forms of tobacco or nicotine? Yes [email or web address] Information not available 09/18/2024 What is your level of alcohol consumption? None Information not available 12/11/2021 Are you able to walk independently without assistance or assistive devices? [email or web address] Information not available 12/11/2021 Are you able to care for yourself independently? 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 No [email or web address] Information not available 03/26/2022 Do you or have you ever used e-cigarettes or vape? Former user of electronic cigarettes [email or web address] Information not available 09/18/2024 What is your exercise level? Occasional Information not available 12/11/2021 Mental Status Question Answer Note LastModified by Organization D etails LastModified Time Do you feel stressed (tense, restless, nervous, or anxious, or unable to sleep at night)? [id number] Information not available 12/11/2021 Family History Relationship Description Onset Age of this Age Resolved Age Notes LastModified by Organization Details LastModified Time Mother Cyst of ovary [email or web address] Not available 2021 16:19:55 Notes:07/19/2021 Cancer risk form complete Medical History Condition Response Allergies (Food, seasonal, environmental ) N Other N Drug/Latex Allergies/Reactions N Blood Transfusion N Breast Cancer N Dermatologic Disorders N Lung Disease N Defects or Inherited Disease N Breast Problem N Gestational Diabetes N Hematologic disorders N Anesthesia Complications N History of STI Y Deep Vein Thrombosis N Polycystic ovary syndrome N Anxiety Disorder Y Autoimmune disease N Arthritis N Polyps N Infertility N Acid Reflux (GERD) N History of abnormal pap Y Cancer N Varicosities N Stroke N Neurologic/Epilepsy N Endometriosis N High Cholesterol N Fibromyalgia N Headaches N Kidney Disease N Heart Problems N Thyroid Problems N Kidney or Bladder Problems N GI Problems Y Eating Disorder [...] ICD10 Code Diagnosis IMO Codes Diagnosis Note [id number] Elena Reveles, [facility] [address] [address] 07/21/2021 09:21:29 07/21/2021 13:37:09 Gynecologic examination 50651543 Z01.419 Z11.51 test positive 099842433 Z32.01 Risk factors addressed: Tobacco Cessation, Safe Sexual Practices, environmen arnold, work hazards, travel restrictio ns, seat belt use.Eat a health well balanced diet, avoid alcohol, tobacco, and street drugs.Enga ge in daily low impact exercise, avoid temperatur e extremes, and cat, rodent, and bird feces.Avoi d travel to areas where zika virus is a concern.Of fered cf/sma/nip t. Desires testing. Handouts given and discussed with patient. ildbirth classes recommende d.New OB sheet given.If previous , counseling . Labs drawn today. Encouraged flu and covid vaccines. Discussed recommenda tions in . Pt verbalizes that she understand s the importance of above instructio ns.All questions were answered.P atient reminded to have annual well woman examinatio n and address preventati ve healthcare . screening 9627 88853 Z36.89 Routine an tenatal care 748076176 Z34.92 Genetic in vestigation procedure 85669261 Z31.430 [id number] Timi Gonzalez MD [place] [address],[place] [address] 07/21/2021 09:21:48 07/21/2021 10:37:05 screening 594215789 Z36.82 [id number] MD Mati Smith [address],[place] [address] 08/28/2021 14:16:09 08/28/2021 15:03:22 Atypical glandular cells on cervical Papanicolaou smear 805697427 R87.619 Cervicovag inal cytology: Low grade squamous intraepithelial lesion 048400116 R87.612 [id number] MD Mati Smith [address],[place] [address] 08/31/2021 11:34:52 08/31/2021 13:47:56 Routine care 524521875 Z34.92 [id number] Juliana Santiago MD [place] [address],[place] [address] 09/22/2021 14:24:10 09/22/2021 17:06:31 screening 941781327 Z36.3 [id number] MD Mati Smith [address],[place] [address] 09/22/2021 14:24:44 09/22/2021 15:59:07 Routine care 432707162 Z34.92 [id number] MD Mati Smith [address],[place] [address] 10/19/2021 14:04:30 10/20/2021 15:34:53 Routine care 459203387 Z34.92 [id number] MD Mati Smith [address],[place] [address] 11/09/2021 10:05:10 11/09/2021 11:04:45 Routine care 202518488 Z34.92 [id number] MD Mati Smith [address],[place] [address] 11/24/2021 13:54:32 11/24/2021 16:33:43 Routine care 702089952 Z34.92 [id number] MD Mati Smith [address],[place] [address] 12/11/2021 10:20:11 12/11/2021 11:01:42 Routine care 496900228 Z34.92 [id number] Chichi Camilo [facility] [address],[place] [address] 12/23/2021 11:53:39 12/23/2021 12:54:18 Routine care 925682879 Z34.93 [id number] Juliana Santiago MD [place] [address],[place] [address] 01/06/2022 14:06:12 01/08/2022 15:12:32 Routine care 007938729 Z34.92 [id number] MD Mati Smith [address],[place] [address] 01/13/2022 11:03:46 01/13/2022 14:24:27 Routine care 485007490 Z34.92 [id number] MD Mati Smith [address],[place] [address] 01/22/2022 12:31:46 01/22/2022 14:21:58 Routine care 767661769 Z34.92 [id number] MD Mati Smith [address],[place] [address] 02/22/2022 11:34:06 02/22/2022 12:08:11 care 047165253 Z39.2 Atypical g landular cells on cervical Papanicolaou smear 195354072 R87.619 [id number] Juliana Santiago MD [place] [address],[place] [address] 03/26/2022 11:15:42 03/26/2022 11:59:06 Screening procedure 97229126 Z13.9 Atypical g landular cells on cervical Papanicolaou smear 992360944 R87.619 [id number] Juliana Santiago MD [place] [address],[place] [address] 02/16/2023 10:56:47 02/21/2023 09:53:14 Atypical glandular cells on cervical Papanicolaou smear 502033891 R87.619 Cervical intraepithelial neoplasia grade 1 098115592 N87.0 [id number] Timi Gonzalez MD [place] [address],[place] [address] 06/23/2023 10:38:31 06/24/2023 08:48:17 Screening procedure 76953063 Z13.9 Dysplasia of cervix 7339 1008 N87.9 abnormal colposcopi c exam with biopsies performed. She tolerated it well. No com [id number] Timi Gonzalez MD [place] [address],[place] [address] 12/23/2023 09:34:52 12/24/2023 14:00:09 [id number] Timi Gonzalez MD [place] [address],[place] [address] 08/21/2024 15:52:40 08/21/2024 16:50:38 [id number] Timi Gonzalez MD [place] [address],[place] [address] 08/27/2024 14:10:02 08/28/2024 07:25:50 Amenorrhea 02261501 N91.2 this patient is a 34-year-ol d female who presents for amenorrhea . She is a positive test. Ultrasound revealed a 1st trimester gestation. Patient has no complaints . We talked about early care. Talked about genetic screening. We talked about her ultrasound results. We talked about the 12 week ultrasound that has genetic screening components . She was given recommenda tions on exercise, diet, over-the-c ounter medication s. We reviewed her obstetric history. We reviewed her medical history. We reviewed her social history. She will begin routine care at her next visit. [id number] Timi Gonzalez MD [place] [address],[place] [address] 09/18/2024 08:58:24 09/18/2024 10:00:16 screening 993745775 Z36.82 Z3A.13 [id number] Chichi GibbsEllyn Camilo [facility] [address],[place] [address] 09/18/2024 09:36:50 09/19/2024 09:49:07 Gestation period, 13 weeks 62057062 Z3A.13 continue vitamin Routine an [facility] care 752368728 Z34.93 [id number] MD Mati Love [address],[place] [address] 10/15/2024 11:38:55 10/15/2024 12:46:23 care status 152618218 Z34.82 15048967 [id number] MD Mati Love [address],[place] [address] 10/29/2024 13:42:13 10/29/2024 15:14:34 screening for malformation 614926366 Z36.3 Z3A.19 9348624808 [id number] MD Mati Love [address],[place] [address] 10/29/2024 13:42:25 10/29/2024 15:27:16 care status 069956808 Z34.82 [id number] [id number] MD Mati Love [address],[place] [address] 11/26/2024 13:47:37 11/26/2024 14:36:41 care status 574388983 O36.5920 Z3A.23 426801 [id number] MD Mati Love [address],[place] [address] 11/26/2024 13:47:48 11/26/2024 15:06:47 care status 023404563 Z34.82 [id number] MURRAY MARTINEZ MD [place] [address],[place] [address] 12/24/2024 13:49:19 12/24/2024 14:35:22 care status 660157198 O36.5920 Z3A.27 [id number] [id number] MURRAY MARTINEZ MD [place] [address],[place] [address] 12/24/2024 14:15:14 12/24/2024 15:23:47 Breech presentation 6215688 O32.1XX0 93239937 - repeat US in 4 weeks for growth and presentati on Gestation period, 27 weeks 81258054 Z3A.27 [id number] - continue PNV [id number] Timi Gonzalez MD [place] [address],[place] [address] 01/07/2025 16:06:31 01/07/2025 17:06:46 care status 899050345 Z34.83 77883964 [id number] MURRAY MARTINEZ MD [place] [address],[place] [address] 01/21/2025 13:53:34 01/21/2025 14:33:53 care status 082641019 O36.5930 Z3A.31 [id number] MURRAY MARTINEZ MD [place] [address] [address],[place] [address] 01/21/2025 13:54:11 01/21/2025 15:21:35 Unwanted fertility [id number] Z30.09 [id number] - patient desires permanent sterilizat ion- discussed risks, benefits, and alternativ es of bilateral salpingect kaylan, including risks of bleeding, infection and injury to surroundin g organs. Also discussed alternativ e contracept phuong options including partner vasectomy and patient declines.- tubal papers signed Anxiety [id number] F41.9 - mood stable Gestation period, 31 weeks 61791609 Z3A.31 2196963 - continue PNV [id number] MURRAY MARTINEZ MD [facility] [address],[place] [address] 02/05/2025 16:38:48 02/05/2025 17:24:51 care status [id number] Z34.83 [id number] -continue PNV [id number] MURRAY MARTINEZ MD [facility] [address],[place] [address] 02/18/2025 16:25:20 02/18/2025 17:32:44 Anxiety 42219250 F41.9 - mood stable Gestation period, 35 weeks 00151419 Z3A.35 3551988 - continue PNV [id number] MURRAY MARTINEZ MD [facility] [address],[place] [address] 02/18/2025 16:25:39 02/18/2025 17:20:49 care status [id number] O36.5930 Z3A.35 580412 -continue PNV [id number] MURRAY MARTINEZ MD [facility] [address],[place] [address] 02/27/2025 13:57:33 02/27/2025 14:37:57 Anxiety 05171360 F41.9 - mood stable Gestation period, 37 weeks 03001969 Z3A.37 3354906 - continue PNV [id number] MURRAY MARTINEZ MD [facility] [address],[place] [address] 03/06/2025 16:48:59 03/07/2025 09:00:54 Anxiety 87139236 F41.9 - mood stable Gestation period, 38 weeks 72496416 Z3A.38 5626305 - continue PNV [id number] MURRAY MARTINEZ MD [facility] [address],[place] [address] 03/13/2025 14:46:57 03/13/2025 15:36:54 Unwanted fertility [id number] Z30.09 99124541 - patient desires permanent sterilizat ion- discussed risks, benefits, and alternativ es of bilateral salpingect kaylan, including risks of bleeding, infection and injury to surroundin g organs. Also discussed alternativ e contracept phuong options including partner vasectomy and patient declines.- tubal papers signed Anxiety 42214985 F41.9 - mood stable Gestation period, 39 weeks 70611721 Z3A.39 6568396 - continue PNV [id number] MURRAY MARTINEZ MD [facility] [address],[place] [address] 03/20/2025 08:44:58 03/20/2025 11:52:43 [id number] MURRAY MARTINEZ MD [facility] [address],[place] [address] 05/01/2025 14:10:22 05/01/2025 14:49:54 Consultation [id number] Z30.09 782922 - patient desires permanent sterilizat ion- discussed risks, benefits, and alternativ es of bilateral salpingect kaylan, including risks of bleeding, infection and injury to surroundin g organs. Also discussed alternativ e contracept phuong options including partner vasectomy and patient declines.- tubal papers signed at 32 weeks gestation care status 24 [id number] Z39.2 6024373 S/p 6 weeks ago here today for a visit.1. Patient recovering well2. Plans to continue breast feeding3. Interested in bilatearl salpingect kaylan for contracept ion at this time. Risks, benefits, and alternativ es reviewed with the patient Health Concerns Section Related Observation LastModified by Organization Detai ls LastModified Time None Recorded Concern Status LastModified by Organization Details LastModified Time None Recorded Advance Directives Directive N: Payers Insurance Date Sequence Insurance Name Policy Number Policy Florez Covered Member ID Florez Member ID Guarantor Name 04/30/2025 1 [place] Catrachita Cerna [id number] Catrachita Cerna 04/30/2025 1 [place] Catrachita Cerna [id number] Catrachita Cerna 04/30/2025 1 [facility] - DOS ON OR AFTER 20 (MEDICAID REPLACEMENT - HMO) Catrachita Cerna [id number] Catrachita Cerna 05/24/2025 1 [facility] - DOS ON OR AFTER 20 (MEDICAID REPLACEMENT - HMO) aCtrachita Cerna [id number] Catrachita Cerna Notes Date Note Type Note Provider Name and Address Organization Details Recorded Time 02/27/2025 text/html Generic HPI TemplateReported by Patient MURRAY MARTINEZ MD [address], [place], [address], [facility] 02/27/2025 14:30:36 03/06/2025 text/html Generic HPI TemplateReported by Patient MURRAY MARTINEZ MD [address], [place], [address], [facility] 03/06/2025 17:35:40 03/13/2025 text/html Generic HPI TemplateReported by Patient MURRAY MARTINEZ MD [address], [place], [address], [facility] 03/13/2025 15:34:14 05/01/2025 text/html VisitReported by Patient S/P on [...] time. MURRAY MARTINEZ MD [address], [place], [address], [facility] 05/01/2025 14:48:05 OBGyn Episode Ob Episode Information Episode Created Date Number of Fetuses Patient Bloodtype Patient rh Status Prepregnancy Weight lbs Domestic Partner Domestic Partner Phone Father Name Marriage And Family Social Worker Status 09/01/19 22 1 116 CLOSED Fetus Data First Name Last Name Admitted to NICU Weight (g) Sex Living Outcome Pediatric Complications Fetus ID Race Codes Race Delivery Type Shawn nichols 3203.49 35 M true Full Term [id number] Vaginal Delivery Problems Problem Notes Problem Name Start Date End Date Resolution Snomed Code Not e Atypical glandular cells on cervical Papanicolaou smear 08/28/2021 [id number] and LSIL. colpo done. Needs ECC and EMB following delivery. Anxiety in [id number] [address] off celexa for 3 years, stable Ultrasound scan abnormal [id number] EIF- discussed, reassured Aníbal Calculation Initial Aníbal Date Initial Exam Date Initial Exam Provider Initial Ultrasound Date Last Menstrual Period Date Ultra Sound Weeks Gestation 01/31/2022 08/31/2021 07/21/2021 04/26/2021 12 Eighteen To Twenty Week Aníbal Update Ultra Sound Date Fundal Height At Umbil Quickening Date Ultra Sound Latest Weeks Gestation Final Aníbal Confirmed By Final Aníbal Confirmed Date Final Aníbal Date Ultra Sound Latest Days Gestation 0 [email or web address] 08/31/2021 02/01/20 22 0 Pre- Flowsheet Flowsheet Date 08/31/2021 Cabrera Score Blood Edema Fundus Height Fundus Units Glucose Ketones Leukocytes Nitrite Labor Signs Protein Cervic Dilation Cervic Effacement Cervic Station neg none none trace Type Weight in lbs Pre/Post Dialysis Refused Weight 135.07805378028 BP Diastolic BP Location Tested BP Systolic BP Type 62 97 Fetus Heart Rate Present A 150 Fetus Movement A Yes Comments Catrachita is a 31yo at 18.1 who presents for care. She has had x2 at term without complications. She recently had a colpo for an Dalia pap. She has anxiety, currently stable off meds for 3 years. She had a right femoral or inguinal hernia repaired as a child. OTherwise history noncontributory. NIPT low risk. Anatomy US next visit. Needs PNL drawn. Flowsheet Date 09/22/2021 Cabrera Score Blood Edema Fundus Height Fundus Units Glucose Ketones Leukocytes Nitrite Labor Signs Protein Cervic Dilation Cervic Effacement Cervic Station Type Weight in lbs Pre/Post Dialysis Refused BP Diastolic BP Location Tested BP Systolic BP Type Fetus Heart Rate Present Fetus Movement Comments Flowsheet Date 09/22/2021 Cabrera Score Blood Edema Fundus Height Fundus Units Glucose Ketones Leukocytes Nitrite Labor Signs Protein Cervic Dilation Cervic Effacement Cervic Station neg none 22 none trace Type Weight in lbs Pre/Post Dialysis Refused Weight 137.514761480636 BP Diastolic BP Location Tested BP Systolic BP Type 73 120 Fetus Heart Rate Present A 145 Fetus Movement A Yes Comments Doing fantastic. Anatomy t erna complete and wnl. EIF present, discussed, reassured. Had labs drawn, not in system yet, will check with lab. Flowsheet Date 10/19/2021 Cabrera Score Blood Edema Fundus Height Fundus Units Glucose Ketones Leukocytes Nitrite Labor Signs Protein Cervic Dilation Cervic Effacement Cervic Station neg trace 29 none trace Type Weight in lbs Pre/Post Dialysis Refused Weight 151.698048652240 BP Diastolic BP Location Tested BP Systolic BP Type 69 105 Fetus Heart Rate Present A 150 Fetus Movement A Yes Comments Doing well, no concerns. GCT next visit. Discussed Tdap after 27w. Flowsheet Date 11/09/2021 Cabrera Score Blood Edema Fundus Height Fundus Units Glucose Ketones Leukocytes Nitrite Labor Signs Protein Cervic Dilation Cervic Effacement Cervic Station neg trace 28 none trace Type Weight in lbs Pre/Post Dialysis Refused Weight 156.497438534476 BP Diastolic BP Location Tested BP Systolic BP Type 77 119 Fetus Heart Rate Present A 150 Fetus Movement A Yes Comments Doing great, no concerns. An xiety not a problem. GCT today, Will do Tdap. COncerned re history of fast labor last time- delivered 19min after arrived at hospital. Discussed 39w IOL- pt desires. Flowsheet Date 11/24/2021 Cabrera Score Blood Edema Fundus Height Fundus Units Glucose Ketones Leukocytes Nitrite Labor Signs Protein Cervic Dilation Cervic Effacement Cervic Station neg trace 32 trace Type Weight in lbs Pre/Post Dialysis Refused BP Diastolic BP Location Tested BP Systolic BP Type Fetus Heart Rate Present A 140 Fetus Movement A Yes Comments Doing well. GCT was wnl but numbers transposed, discussed. monitor for glucosuria or symptoms of DM. Doing Tdap tomorrow. Wants to breastfeed for first time, encouraged class. Flowsheet Date 12/11/2021 Cabrera Score Blood Edema Fundus Height Fundus Units Glucose Ketones Leukocytes Nitrite Labor Signs Protein Cervic Dilation Cervic Effacement Cervic Station 32 Type Weight in lbs Pre/Post Dialysis Refused Weight 166.146751307823 BP Diastolic BP Location Tested BP Systolic BP Type 71 R arm 112 sitting Fetus Heart Rate Present A 145 Fetus Movement A Yes Comments no problems and no complaint s Flowsheet Date 12/23/2021 Cabrera Score Blood Edema Fundus Height Fundus Units Glucose Ketones Leukocytes Nitrite Labor Signs Protein Cervic Dilation Cervic Effacement Cervic Station neg trace 35 none trace Type Weight in lbs Pre/Post Dialysis Refused Weight 168.909360666002 BP Diastolic BP Location Tested BP Systolic BP Type 51 92 Fetus Heart Rate Present A 131 Fetus Movement A Yes Comments patient is having contractio ns and swelling. precautions reviewed plan GBS at next visit, doing well and has preadmit scheduled Flowsheet Date 01/06/2022 Cabrera Score Blood Edema Fundus Height Fundus Units Glucose Ketones Leukocytes Nitrite Labor Signs Protein Cervic Dilation Cervic Effacement Cervic Station neg none 35 none trace 1cm 20% Type Weight in lbs Pre/Post Dialysis Refused Weight 171.583972465555 BP Diastolic BP Location Tested BP Systolic BP Type 71 106 Fetus Heart Rate Present A 145 Fetus Movement A Yes Comments Doing well. No concerns. GBS done and discussed. Wants 39w IOL, will schedule next week. Flowsheet Date 01/13/2022 Cabrera Score Blood Edema Fundus Height Fundus Units Glucose Ketones Leukocytes Nitrite Labor Signs Protein Cervic Dilation Cervic Effacement Cervic Station neg trace 37 none trace 1cm 50% Type Weight in lbs Pre/Post Dialysis Refused Weight 173.869522392523 BP Diastolic BP Location Tested BP Systolic BP Type 66 101 Fetus Heart Rate Present A 125 Fetus Movement A Yes Comments Doing well. GBS neg. Anxiety fine. WOuld like IOL around 39w- scheduled for 8/2am. PRecautions given. Flowsheet Date 01/22/2022 Cabrera Score Blood Edema Fundus Height Fundus Units Glucose Ketones Leukocytes Nitrite Labor Signs Protein Cervic Dilation Cervic Effacement Cervic Station neg trace 38 none trace 3cm 50% -3 Type Weight in lbs Pre/Post Dialysis Refused Weight 173.303320479167 BP Diastolic BP Location Tested BP Systolic BP Type 73 118 Fetus Heart Rate Present A 150 Fetus Movement A Yes Comments Doing well, no concerns. Goo d FM. IOL Tu am, discussed IOL, RBA, questions answered. Menstrual History Last Menstrual Date Menses Monthly On Bcp Conception Prior Menses Frequency Hcg Plus Date Menarche Onset Age 1004/26/2021 Genetic Screening And Infection History Question Response Note Mental Retardation/Autism false Patient's Age Will Be 35 Years Or Older At Estim ated Date of Delivery false Thalassemia (Surinamese, Irish, Mediterranean, Or Background): MCV < 80 false Neural Tube Defect (Meningomyelocele, Spina Bifi da, Or Anencephaly) false Congenital Heart Defect false Down Syndrome false Josue-Sachs (eg, Congregation, Cajun, Czech-[place]) f alse Dennis Disease false Sickle Cell Disease Or Trait () false Hemophilia Or Other Blood Disorders false Muscular Dystrophy false Cystic Fibrosis false [place]'s Chorea false Intellectual Disability/Autism false If Yes, Was Person Tested For Fragile X? false Other Inherited Genetic Or Chromosomal Disorder false Maternal Metabolic Disorder (eg, Type 1 Diabetes , PKU) false Patient Or Baby's Father Had A Child With Defects Not Listed Above false Recurrent Loss, Or A Stillbirth false Medications (including Suppl ements, Vitamins, Herbs, OTC Drugs), Illicit/Recreational Drugs, Alcohol false If Yes, Agent(s) And Strength/Dosage false Any Other Genetic History false Live With Someone With TB Or Exposed To TB false Patient Or Partner Has History Of Genital Herpes false Rash Or Viral Illness Since Last Menstrual Perio d false History Of STD, Gonorrhea, Chlamydia, HPV, Syphi lis false Other Infection History false History of HIV false History of Hepatitis false Prior GBS-infected child false Hemoglobinopathy Or Carrier false Other Structural Defect false Recent Travel History Outside of Country false Delivery Information Delivery Date Delivery Type Labor Anesthesia Weeks Gestation Incision Type Labor Labor Length Hrs Delivered By Post Complications Tubal Sterilization Discharge Date Comments 2 Induce d Regional-Ep idural 39.2 false Juliana Santiago MD Discharge Information Feeding Method Contraceptive Method Maternal HG B and HCT Levels Breast Ob Episode Information Episode Created Date Number of Fetuses Patient Bloodtype Patient rh Status Prepregnancy Weight lbs Domestic Partner Domestic Partner Phone Father Name Marriage And Family Social Worker Status 07/20/19 22 1 DELETED Aníbal Calculation Initial Aníbal Date Initial Exam Date Initial Exam Provider Initial Ultrasound Date Last Menstrual Period Date Ultra Sound Weeks Gestation 0 Eighteen To Twenty Week Aníbal Update Ultra Sound Date Fundal Height At Umbil Quickening Date Ultra Sound Latest Weeks Gestation Final Aníbal Confirmed By Final Aníbal Confirmed Date Final Aníbal Date Ultra Sound Latest Days Gestation 0 0 Menstrual History Last Menstrual Date Menses Monthly On Bcp Conception Prior Menses Frequency Hcg Plus Date Menarche Onset Age Delivery Information Delivery Date Delivery Type Labor Anesthesia Weeks Gestation Incision Type Labor Labor Length Hrs Delivered By Post Complications Tubal Sterilization Discharge Date Comments 2 Discharge Information Feeding Method Contraceptive Method Maternal HG B and HCT Levels Ob Episode Information Episode Created Date Number of Fetuses Patient Bloodtype Patient rh Status Prepregnancy Weight lbs Domestic Partner Domestic Partner Phone Father Name Marriage And Family Social Worker Status 07/20/19 22 1 CLOSED Fetus Data First Name Last Name Admitted to NICU Weight (g) Sex Living Outcome Pediatric Complications Fetus ID Race Codes Race Delivery Type 3203.26 6704 M Full Term 44985 Vaginal Delivery Aníbal Calculation Initial Aníbal Date Initial Exam Date Initial Exam Provider Initial Ultrasound Date Last Menstrual Period Date Ultra Sound Weeks Gestation 0 Eighteen To Twenty Week Aníbal Update Ultra Sound Date Fundal Height At Umbil Quickening Date Ultra Sound Latest Weeks Gestation Final Aníbal Confirmed By Final Aníbal Confirmed Date Final Aníbal Date Ultra Sound Latest Days Gestation 0 0 Menstrual History Last Menstrual Date Menses Monthly On Bcp Conception Prior Menses Frequency Hcg Plus Date Menarche Onset Age Delivery Information Delivery Date Delivery Type Labor Anesthesia Weeks Gestation Incision Type Labor Labor Length Hrs Delivered By Post Complications Tubal Sterilization Discharge Date Comments 8 40.3 Discharge Information Feeding Method Contraceptive Method Maternal HG B and HCT Levels Ob Episode Information Episode Created Date Number of Fetuses Patient Bloodtype Patient rh Status Prepregnancy Weight lbs Domestic Partner Domestic Partner Phone Father Name Marriage And Family Social Worker Status 07/20/19 22 1 CLOSED Fetus Data First Name Last Name Admitted to NICU Weight (g) Sex Living Outcome Pediatric Complications Fetus ID Race Codes Race Delivery Type 3486.76 1704 M Full Term 47207 Vaginal Delivery Aníbal Calculation Initial Aníbal Date Initial Exam Date Initial Exam Provider Initial Ultrasound Date Last Menstrual Period Date Ultra Sound Weeks Gestation 0 Eighteen To Twenty Week Aníbal Update Ultra Sound Date Fundal Height At Umbil Quickening Date Ultra Sound Latest Weeks Gestation Final Aníbal Confirmed By Final Aníbal Confirmed Date Final Aníbal Date Ultra Sound Latest Days Gestation 0 0 Menstrual History Last Menstrual Date Menses Monthly On Bcp Conception Prior Menses Frequency Hcg Plus Date Menarche Onset Age Delivery Information Delivery Date Delivery Type Labor Anesthesia Weeks Gestation Incision Type Labor Labor Length Hrs Delivered By Post Complications Tubal Sterilization Discharge Date Comments 6 39.6 Discharge Information Feeding Method Contraceptive Method Maternal HG B and HCT Levels Ob Episode Information Episode Created Date Number of Fetuses Patient Bloodtype Patient rh Status Prepregnancy Weight lbs Domestic Partner Domestic Partner Phone Father Name Marriage And Family Social Worker Status 07/20/19 22 1 CLOSED Fetus Data First Name Last Name Admitted to NICU Weight (g) Sex Living Outcome Pediatric Complications Fetus ID Race Codes Race Delivery Type , Spontane ous [id number] Aníbal Calculation Initial Aníbal Date Initial Exam Date Initial Exam Provider Initial Ultrasound Date Last Menstrual Period Date Ultra Sound Weeks Gestation 0 Eighteen To Twenty Week Aníbal Update Ultra Sound Date Fundal Height At Umbil Quickening Date Ultra Sound Latest Weeks Gestation Final Aníbal Confirmed By Final Aníbal Confirmed Date Final Aníbal Date Ultra Sound Latest Days Gestation 0 0 Menstrual History Last Menstrual Date Menses Monthly On Bcp Conception Prior Menses Frequency Hcg Plus Date Menarche Onset Age Delivery Information Delivery Date Delivery Type Labor Anesthesia Weeks Gestation Incision Type Labor Labor Length Hrs Delivered By Post Complications Tubal Sterilization Discharge Date Comments 0 Discharge Information Feeding Method Contraceptive Method Maternal HG B and HCT Levels Ob Episode Information Episode Created Date Number of Fetuses Patient Bloodtype Patient rh Status Prepregnancy Weight lbs Domestic Partner Domestic Partner Phone Father Name Marriage And Family Social Worker Status 07/20/19 22 1 CLOSED Fetus Data First Name Last Name Admitted to NICU Weight (g) Sex Living Outcome Pediatric Complications Fetus ID Race Codes Race Delivery Type , Induced 21005 Aníbal Calculation Initial Aníbal Date Initial Exam Date Initial Exam Provider Initial Ultrasound Date Last Menstrual Period Date Ultra Sound Weeks Gestation 0 Eighteen To Twenty Week Aníbal Update Ultra Sound Date Fundal Height At Umbil Quickening Date Ultra Sound Latest Weeks Gestation Final Aníbal Confirmed By Final Aníbal Confirmed Date Final Aníbal Date Ultra Sound Latest Days Gestation 0 0 Menstrual History Last Menstrual Date Menses Monthly On Bcp Conception Prior Menses Frequency Hcg Plus Date Menarche Onset Age Delivery Information Delivery Date Delivery Type Labor Anesthesia Weeks Gestation Incision Type Labor Labor Length Hrs Delivered By Post Complications Tubal Sterilization Discharge Date Comments 7 Discharge Information Feeding Method Contraceptive Method Maternal HG B and HCT Levels Ob Episode Information Episode Created Date Number of Fetuses Patient Bloodtype Patient rh Status Prepregnancy Weight lbs Domestic Partner Domestic Partner Phone Father Name Marriage And Family Social Worker Status 09/19/19 25 1 A Positive 132 Gibson Krishan CLOSED Fetus Data First Name Last Name Admitted to NICU Weight (g) Sex Living Outcome Pediatric Complications Fetus ID Race Codes Race Delivery Type 3430.28 95 M true Full Term 58785 Vaginal Delivery Problems Problem Notes Problem Name Start Date End Date Resolution Snomed Code Note Unwanted fertility 5 [id number] salpingectomycon sents signed at 32 weeks History of hernia repair 68120210461702 Human papilloma virus infection 514120218 Precipitate labor 5 52533237 Cervical intraepithelial neoplasia grade 1 357292316 2021 History of abnormal cervical Papanicolaou smear 962718799 3 hgsil hpv+03/26/2022 ascus +hpv07/21/2021 lgsil hpv high risk hpv 16 neg std 11/24/2017 neg pap neg std10/21/2016 ascus hpv high risk hpv 16 Anxiety 16611572 doing well , has been off meds [...] Weight in lbs Pre/Post Dialysis Refused Weight 132.899643550505 BP Diastolic BP Location Tested BP Systolic [...] Type Weight in lbs Pre/Post Dialysis Refused 139.456282878604 BP Diastolic BP Location Tested BP Systolic [...] Type Weight in lbs Pre/Post Dialysis Refused 143.994790474285 BP Diastolic BP Location Tested BP Systolic [...] Weight in lbs Pre/Post Dialysis Refused Weight 149.94177189236 BP Diastolic BP Location Tested BP Systolic [...] Weight in lbs Pre/Post Dialysis Refused Weight 157.181667673333 BP Diastolic BP Location Tested BP Systolic [...] Type Weight in lbs Pre/Post Dialysis Refused 159.225952368542 BP Diastolic BP Location Tested BP Systolic [...] Weight in lbs Pre/Post Dialysis Refused Weight 163.733829757142 BP Diastolic BP Location Tested BP Systolic [...] Weight in lbs Pre/Post Dialysis Refused Weight 167.175012504486 BP Diastolic BP Location Tested BP Systolic [...] Weight in lbs Pre/Post Dialysis Refused Weight 167.603461685714 BP Diastolic BP Location Tested BP Systolic [...] Weight in lbs Pre/Post Dialysis Refused Weight 173.678107014615 BP Diastolic BP Location Tested BP Systolic [...] Type Weight in lbs Pre/Post Dialysis Refused 174.56723274803 BP Diastolic BP Location Tested BP Systolic [...] Type Weight in lbs Pre/Post Dialysis Refused 176.902411399773 BP Diastolic BP Location Tested BP Systolic [...]
--- NOTE | 2025-05-27 11:06 | PM.IMHP2 ---
H&P: HPI History of Present Illness Date/Time: 05/27/25 11:06 Chief Complaint: desires sterilization Narrative: Patient is a 35 year old female who presents for lap bilateral salpingectomy. She has completed childbearing and does not desire future pregnancies. She has been counseled on all reversible options and would like to proceed with permanent sterilization. Discussed that this procedure cannot be reversed and she voiced understanding. Review of Systems Review of Systems: All systems reviewed & are unremarkable except as noted in HPI and below PMFSH Past Medical History Medical History FH: migraines Advanced maternal age (AMA) in Anxiety OCD (obsessive compulsive disorder) Family History Family History Other Unknown family medical history Social History Social History Smoking status: Former smoker Tobacco type: cigarettes and e-cigarettes/vaping Second hand tobacco smoke exposure: No Smoking end date: 08/25/20 Alcohol intake: never Substance use: never Substance use type: does not use Lack of Transportation: No Lack of Food: Never True Current Housing: I Have Housing Concerned About Future Housing: No Difficulty Paying Gas/Electric Bills: No Difficulty Paying for Meds: No Currently Unemployed: No Education: High School Diploma/GED Difficulty w/ Childcare or Family Care: No Living arrangements: with family Spiritual care concerns: No Meds Home Medications and Allergies Home Medications ?Medication ?Instructions ?Recorded ?Confirmed ?Type prenat.vits,vincent,akn-whcn-ufwfg 1 tablet PO DAILY 12/31/21 05/21/25 History Allergies Allergy/AdvReac Type Severity Reaction Status Date / Time No Known Allergies Allergy Verified 05/21/25 16:50 Exam Const: General: healthy appearing, comfortable and no acute distress Orientation/consciousness: patient oriented x3 HENMT: Mouth: Yes moist mucous membranes Eyes: General: appearance normal, both eyes and all related structures Resp: Effort & Inspection: normal respiratory effort Cardio: Rate: regular rate Skin: General skin exam: normal color Extrem: General: normal to inspection Psych: Mental Status: mental status grossly normal Assessment and Plan Assessment and plan (1) Encounter for sterilization: Code(s): Z30.2 - Encounter for sterilization Status: Acute Assessment and Plan: - patient has completed childbearing and desires permanent sterilization; discussed risks and benefits of the procedure including that this procedure cannot be reversed; patient voices understanding - will proceed with laparoscopic bilateral salpingectomy
--- NOTE | 2025-05-27 11:09 | WPDHPUPDATE1 ---
History and Physical Update Update Date/Time: 05/27/25 11:09 History and Physical has been reviewed, including an updated exam of the patient. There are NO changes in the patient's condition. Risks, benefits, and alternatives have been discussed and questions answered. Patient agrees to proceed with procedure.
[2025-05-27] MEDS: LACTATED RINGERS 1,000 ML 30 ML IV CONT (11:10)
[2025-05-27] MEDS: KETOROLAC 15 MG/ML VIAL (*BKC) IV PUSH (11:10)
[2025-05-27] MEDS: ACETAMINOPHEN 500 MG TABLET 1000 MG PO (11:10)
--- NOTE | 2025-05-27 11:22 | WPDANESEPPF ---
Anes - Initial Pre Proc Eval Procedure: Operation Date: 05/27/25 13:00 Proposed Procedures p Bilateral Laparoscopic Salpingectomy - Abner Steele MD Date/Time: 05/27/25 11:22 Surgeon: Abner Steele MD Pre Op Diagnosis: Desire Sterilization Patient Data Age: 35 Gender: F Height: 1.52 m Weight: 72.72 kg Allergies Allergy/AdvReac Type Severity Reaction Status Date / Time No Known Allergies Allergy Verified 05/21/25 16:50 Home Medications ?Medication ?Instructions ?Recorded ?Confirmed ?Type prenat.vits,vincent,gko-usxb-euafs 1 tablet PO DAILY 12/31/21 05/21/25 History HCG: negative Patient hx anesthesia problems: none Family hx anesthesia problems: none Results Review: All pre-operative results and documents have been reviewed as part of the pre-operative evaluation. [facility] Past Medical History Medical History FH: migraines Advanced maternal age (AMA) in Anxiety OCD (obsessive compulsive disorder) Family History Family History Other Unknown family medical history Social History Social History Smoking status: Former smoker Tobacco type: cigarettes and e-cigarettes/vaping Second hand tobacco smoke exposure: No Smoking end date: 08/25/20 Alcohol intake: never Substance use: never Substance use type: does not use Lack of Transportation: No Lack of Food: Never True Current Housing: I Have Housing Concerned About Future Housing: No Difficulty Paying Gas/Electric Bills: No Difficulty Paying for Meds: No Currently Unemployed: No Education: High School Diploma/GED Difficulty w/ Childcare or Family Care: No Living arrangements: with family Spiritual care concerns: No Anes - Eval Final PreProcedure Day of Procedure 05/27/25 11:22 Patient weight: obese Heart: regular rate and rhythm Lungs: normal air movement Airway: Mallampati scale class III Neurological: alert and oriented Last oral intake: >/= 8 hours ASA classification: II Emergent: no Anesthetic plan: proceed Anesthesia type and monitoring: general ETT and standard monitoring Results Review: All pre-operative results and documents have been reviewed as part of the pre-operative evaluation. Informed Consent: The patient's anesthetic plan and its attendant risks and benefits were discussed with the patient/family/POA. Questions were solicited and answers provided to the satisfaction of the patient/family/POA.
[2025-05-27 11:34] LABS: BEDSIDEPREGUCG Negative (Negative)
[2025-05-27] MEDS: LIDO 1%/EPINEPHRINE 1:100,000 20 ML VIAL 15 ML INFILTRATE (12:02)
--- NOTE | 2025-05-27 12:09 | S_PTH ---
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
--- NOTE | 2025-05-27 12:19 | W.PM.PROC2 ---
Procedure Note - Detailed Date of Procedure 05/27/25 Pre-op Diagnosis Desire Sterilization Post-op Diagnosis Same Procedure Performed laparoscopic bilateral salpingectomy Surgeon Abner Steele MD Anesthesia General Indications desires permanent sterilization Findings normal appearing uterus, bilateral tubes and bilateral ovaries Description of Procedure With IV fluids infusing, the patient was taken to the operating room. The patient was placed in supine position. General anesthesia with endotracheal intubation was given. A time-out took place. The patient was placed in dorsal lithotomy position using Bernardino stirrups and she was prepped and draped in the usual sterile fashion. The bladder was drained using a red rubber catheter. A sterile speculum was placed vaginally, the anterior lip of the cervix was grasped with a single-tooth tenaculum and the acorn uterine manipulator was placed without difficulty. The speculum was removed. The surgeon's gloves were changed and attention was turned to the abdomen. A 5 mm incision was made in the umbilicus. Under direct visualization with the scope, the umbilical port was inserted without difficulty. Another two trocars were placed under direct visualization in the left upper and left lower quadrants. The patient was placed in Trendelenburg and inspection of the pelvis noted the above findings. Appropriate pictures were taken. Using the LigaSure device, a left salpingectomy was performed in the usual fashion. Care was taken to avoid the IP ligament. The salpingectomy went smoothly. The same procedure was repeated on the right side. The instruments were all removed from the abdomen and the CO2 gas was allowed to escape. The three skin incisions were reapproximated with 4-0 Polysorb in a subcuticular manner, followed by skin glue. The acorn manipulator and single tooth tenaculum was removed from the uterus and cervix, respectively. The tenaculum sites were hemostatic. All instruments were removed from the vagina. At the end of the case, instrument, sponge and needle counts were correct x 2. The patient was awakened from general anesthesia and was taken to PACU in stable condition. Estimated Blood Loss 5 Pathology Yes Complications No immediate complications Condition Stable Disposition Same day
--- NOTE | 2025-05-27 13:00 | ECG_ITS ---
Test Date: 2025-05-27 13:10:43 Measurements Intervals [place] Rate: 58 P: 17 NV: 150 QRS: 28 QRSD: 83 T: 15 QT: 457 QTc: 452 Interpretive Statements SINUS BRADYCARDIA BORDERLINE ST-T WAVE ABNORMALITY- ANT/INF LEADS BASELINE ARTIFACT- V2-V3 BORDERLINE ECG No previous ECG available for comparison Electronically Signed On 05-27-2025 13:13:51 RED CAP by Michael Hollis D.O.
[2025-05-27] MEDS: fentaNYL CITRATE INJ (*CRX) 100 MCG/2 ML VIAL 25 MCG IV PUSH ×5 (13:03→13:25)
[2025-05-27] MEDS: oxyCODONE HCL (*CRX) 5 MG TAB IR PO (13:59)
== END 2025-05-27 15:05 | disposition home or self-care (01) ==
PROVIDERS: Anesthesiology; Visit Provider Obstetrics & Gynecology
PROC: (CPT 49320; principal; 2025-05-27 13:00)
DX: Z30.2 Encounter for sterilization (principal); Z87.891 Personal history of nicotine dependence; E66.9 Obesity, unspecified; Z68.32 Body mass index [BMI] 32.0-32.9, adult
CPT/HCPCS: 58661; 88302; 93005; A9270; J1100; J1885; J2003; J2004; J2250; J2405; J2704; J3010; J7120